=== PATIENT | female | born 2000 | race Caucasian/White ===

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

== ENCOUNTER → 2020-02-12 16:53 | Outpatient (CLI) | payer BC, SELFPAY ==
[2020-02-15 08:16] LABS: Neisseria gonorrhoeae, NAA Negative (Negative)
== END ==
PROVIDERS: Visit Provider Nurse Practitioner Obstetrics & Gynecology
DX: Z72.51 High risk heterosexual behavior (principal)
CPT/HCPCS: 87491; 87591

== ENCOUNTER → 2020-02-17 15:11 | Outpatient (CLI) | payer BC, SELFPAY ==
--- NOTE | 2020-02-17 15:11 | US_ITS ---
PROCEDURE: US TRANSVAGINAL CLINICAL INDICATION: pelvic pain COMPARISON: US TRANVAG US transvaginal from 05/01/2018 FINDINGS: UTERUS: 5cm x 4cmx 3cm with a combined endometrial thickness of 1mm LEFT OVARY: [id number] with a volume of 3.8ml. RIGHT OVARY: [id number] with a volume of 7.7ml. There is a small amount of fluid in the cul-de-sac. The uterus has an unremarkable appearance. There are small bilateral ovarian follicles but no dominant mass or cyst IMPRESSION: Small amount of fluid in cul-de-sac otherwise negative pelvic ultrasound Dictated by: Igor Baker MD 02/17/2020 16:19 Igor Baker MD in OV 02/17/2020 16:19
== END ==
PROVIDERS: PCP Family Medicine; Visit Provider Nurse Practitioner Obstetrics & Gynecology
DX: R10.2 Pelvic and perineal pain (principal)
CPT/HCPCS: 76830

== ENCOUNTER 2020-07-07 08:59 | Emergency (ER) | payer BC, SELFPAY ==
[2020-07-07 09:05] VITALS: BP 118/63; PULSE 69; RESP 19; TEMP 36.9; O2SAT 99; BMI 20.5
--- NOTE | 2020-07-07 09:30 | HMH.EDUTC ---
[facility] [place] Dis[place] Clinical Impression: Strep throat Disposition: Home, Self-Care Condition on Discharge: Good Instructions: Strep Throat (Alternative Therapy), Strep Throat, DI for Strep Throat Additional Instructions: *Monitor Temp, Over the counter Motrin or Tylenol as directed/as needed Tylenol every 4 hours and Motrin every 6 hours (as long as your family doctor has told you that you can take it) for fever or pain. and straight to ER if unable to lower temp less than 101.0 after medication given *Warm salt water gargles may help to soothe the throat *Throat Lozenges *Warm fluids like tea with honey may help to soothe the throat *Sleep elevated *Humidifier/Vaporizer *If you did not take Penicillin shot or was unable to, start taking antibiotic immediately and make sure that you take it for the FULL length of time although you should start to feel better in 24-48 hours *change toothbrush and toothpaste 24-48 hours after starting to take antibiotics so you do not reinfect yourself Monitor Temp. Tylenol and/or Ibuprofen as needed. ER if fever is no less than 101 despite alternating Tylenol and Ibuprofen * Encourage fluids, water, Gatorade, powerade, pedialyte if infant/toddler/or child *Cold fluids, popsicles and ice cream may feel good on his throat Follow up IMMEDIATELY for new or worsening symptoms or no Noticeable improvement over the next 48-72 hours. 911 for difficulty breathing or swallowing Referrals: Justin Ireland MD [Primary Care Provider] - As needed Time of Disposition: 09:37 Medical Decision Making - Oswaldo Inquiry Pt receiving controlled substance: No Oswaldo was queried for this patient: No Vital Signs: 07/07/20 09:05 07/07/20 09:52 Temperature 98.4 F 98.4 F Temperature Source Oral Pulse Rate 69 Pulse Rate [Right Brachial] 69 Respiratory Rate 19 19 Blood Pressure 118/63 Blood Pressure [Right Arm] 118/63 Blood Pressure Mean [Right Arm] 81 Blood Pressure Source [Right Arm] Automatic Cuff Blood Pressure Position [Right Arm] Sitting 02 Sat by Pulse Oximetry 99 Oxygen Delivery Method Room Air - Lab Data Lab results reviewed: Yes: I reviewed the patient's lab results. Orders (Tests/Meds): ED MEDICATIONS Discontinued Medications Generic Name Dose Route Start Last Admin Trade Name Freq PRN Reason Stop Dose Admin Penicillin G Benzathine 1,200,000 unit 07/07/20 09:35 07/07/20 09:51 Penicillin G Benzathine 1,200,000 Units/2ml Syringe IM 07/07/20 09:36 1,200,000 unit ONCE ONE Administration Protocol [facility] [place] HPI - General Stated complaint: sore throat, Time Seen by Provider: 07/07/20 09:30 Mode of Arrival: Ambulatory Source of Information: Patient Limitations: No Limitations Description of Symptoms (Recalled from Triage Doc. by RN): PATIENT C/O SORE THROAT THAT STARTED YESTERDAY HEENT Symptoms (Recalled from RN notes): Yes Resp Symptoms (Recalled from RN notes): No Skin Symptoms (Recalled from RN notes): No MS Symptoms (Recalled from RN notes): No Functional Status (Recalled from RN notes): WNL - History of Present Illness Provider Complaint: Patient states that she started having sore throat yesterday and it it has continued to get worse States that this morning it would hurt when she would swallow - Related Data Home Medications Medication Instructions Recorded Confirmed norethindrone-e.estradioL-iron See Rx Instructions .ROUTE .COMPLEX 07/07/20 07/07/20 [ Tablet] Allergies Allergy/AdvReac Type Severity Reaction Status Date / Time No Known Allergies Allergy Verified 02/12/20 14:43 - Worker's Comp Is this a Worker's Comp case?: No [facility] History - Hepatitis A Screen Drug use history?: No High risk sexual behaviors?: No History of sexually transmitted infection?: No Currently employed?: No Childcare worker?: No Do you have indoor plumbing?: Yes Do you have electricity?: Yes Attestation statement:: This patient has
[2020-07-07 09:52] VITALS: BP 118/63; PULSE 69; RESP 19; TEMP 36.9; O2SAT 99
[2020-07-07 13:25] LABS: UTC Strep Screen (Rapid) Positive (Negative)
== END 2020-07-07 09:55 | disposition home or self-care (01) ==
PROVIDERS: Emergency Provider Nurse Practitioner; PCP Family Medicine
DX: J02.0 Streptococcal pharyngitis (principal)
CPT/HCPCS: 87880; 96372; 99202; G0463; J0561

== ENCOUNTER 2020-07-22 19:07 | Emergency (ER) | payer BC, SELFPAY ==
[2020-07-22 19:47] VITALS: PULSE 84; RESP 16; TEMP 36.8; O2SAT 100; BMI 20.9
[2020-07-22 20:00] LABS: UTC Strep Screen (Rapid) Negative (Negative)
--- NOTE | 2020-07-22 20:23 | HMH.EDUTC ---
[facility] [place] Clinical Impression: Pharyngitis Qualifiers: Pharyngitis/tonsillitis etiology: unspecified etiology Qualified Code(s): J02.9 - Acute pharyngitis, unspecified Disposition: Home, Self-Care Condition on Discharge: Good Instructions: Sore Throat, DI for Pharyngitis/Tonsillopharyngitis -- Adult Additional Instructions: Drink plenty of fluids. Take tylenol or ibuprofen for pain or fever. Take the medications as directed. Follow up with your regular doctor. GO TO THE ER FOR ANY WORSENING SYMPTOMS Throw your tooth brush away and get a new one. Prescriptions: Cefdinir [Cefdinir 250mg/5ml Oral Susp] 300 mg PO BID 10 Days #120 ml Transmission Status: Received by [id number] Referrals: Justin Ireland MD [Primary Care Provider] - Forms: Work/School Release Time of Disposition: 20:37 Medical Decision Making - Medical Records Medical records reviewed: No: I reviewed the patient's medical records. - Oswaldo Inquiry Pt receiving controlled substance: No Vital Signs: 07/22/20 19:47 07/22/20 20:35 Temperature 98.3 F 98.2 F Temperature Source Oral Oral Pulse Rate 80 Pulse Rate [Right] 84 Respiratory Rate 16 16 Blood Pressure 127/84 Blood Pressure Source Automatic Cuff Blood Pressure Position Sitting 02 Sat by Pulse Oximetry 100 Oxygen Delivery Method Room Air Room Air - Lab Data Lab results reviewed: Yes: I reviewed the patient's lab results. Lab Results 07/22/20 19:47: Strep Scn Rapid Clinic Negative Orders (Tests/Meds): ORDERS Category Date Time Status Strep Screen Confirmation Stat Micro 07/22/20 19:47 Received [facility] [place] - General Stated complaint: SORE THROAT AND EARS Time Seen by Provider: 07/22/20 20:23 Mode of Arrival: Ambulatory Source of Information: Patient Limitations: No Limitations Description of Symptoms (Recalled from Triage Doc. by RN): pt c/o sore throat, ear pain HEENT Symptoms (Recalled from RN notes): No Resp Symptoms (Recalled from RN notes): No Skin Symptoms (Recalled from RN notes): No MS Symptoms (Recalled from RN notes): No Functional Status (Recalled from RN notes): na - History of Present Illness Provider Complaint: She states that she has had a sore throat and she has felt bad since yesterday. She had strep 2 weeks ago. She states that she feels like her strep is back. She took a bicillin shot 2 weeks ago when she had strep. - Related Data Home Medications Medication Instructions Recorded Confirmed norethindrone-e.estradioL-iron See Rx Instructions .ROUTE .COMPLEX 07/07/20 07/07/20 [Junel Fe 24 Tablet] Previous Rx's Medication Instructions Recorded Cefdinir [Cefdinir 250mg/5ml Oral 300 mg PO BID 10 Days #120 ml 07/22/20 Susp] Allergies Allergy/AdvReac Type Severity Reaction Status Date / Time No Known Allergies Allergy Verified 02/12/20 14:43 - Worker's Comp Is this a Worker's Comp case?: No [facility] History - Hepatitis A Screen Drug use history?: No High risk sexual behaviors?: No History of sexually transmitted infection?: No Currently employed?: No Childcare worker?: No Do you have indoor plumbing?: Yes Do you have electricity?: Yes Attestation statement:: This patient has been screened for Hepatitis A risk factors. I have reviewed the patient's past medical history: Yes Medical History: Denies:: Cancer, Diabetes Mellitus Type 1, Diabetes Mellitus Type 2, Internal Pacemaker, MRSA, Seizures Other Medical History: Denies: Blood Transfusion Reaction Laterality Cases: Bilateral: Myringotomy (Ear Tubes) Other Surgeries: Yes: Cholecystectomy, Other. No: Pacemaker Amputation: No Fractures: No - Social History Smoking Status: Never smoker Alcohol Intake: never Substance Use Type: denies use Occupational Status: other Housing: house Family Hx:: Cancer, Coronary Artery Disease, Diabetes, Heart Attack, Stroke ROS Obtained: Yes All systems reviewed & no additional compl
[2020-07-22 20:35] VITALS: BP 127/84; PULSE 80; RESP 16; TEMP 36.8; O2SAT 98
== END 2020-07-22 20:38 | disposition home or self-care (01) ==
PROVIDERS: Emergency Provider Nurse Practitioner Family; PCP Family Medicine
DX: J02.9 Acute pharyngitis, unspecified (principal)
CPT/HCPCS: 87880; 99202; G0463

== ENCOUNTER 2020-09-23 16:39 | Emergency (ER) | payer BC, SELFPAY ==
[2020-09-23 17:00] VITALS: BP 121/65; PULSE 77; RESP 14; TEMP 37.2; O2SAT 99; BMI 20.3
[2020-09-23 17:12] LABS: Apearance,Urine Clear (Clear); Color,Urine Yellow (Yellow); Glucose,Urine (UA) Negative (Negative); Ketones,Urine Negative (Negative); Protein,Urine Negative (Negative)
[2020-09-23 17:13] LABS: Bilirubin,Urine Negative (Negative); Blood, Urine Trace (Negative); UTC Leukocyte Esterase,Urine Trace (Negative); UTC Nitrate,Urine Negative (Negative); Urobilinogen,Urine 0.2 EU/dl (0.2)
--- NOTE | 2020-09-23 17:41 | HMH.EDUTC ---
[facility] [place] Disposition Clinical Impression: UTI (urinary tract infection) Qualifiers: Urinary tract infection type: site unspecified Hematuria presence: with hematuria Qualified Code(s): N39.0 - Urinary tract infection, site not specified; R31.9 - Hematuria, unspecified Disposition: Home, Self-Care Condition on Discharge: Good Instructions: Cephalexin, Urinary Tract Infection, DI for Urinary Tract Infection (UTI) Additional Instructions: *Increase fluids. Water not Soda or Tea *Start antibiotic immediately and be sure to take as ordered for the FULL length of time although you should start to see improvement over the next 48 hours *Be SURE to follow up anytime for new or worsening symptoms with your family doctor. AND in 48 hours for urine culture results with your family doctor, if you do not have a doctor then you may call back to the [facility] for urine culture results and further treatment. We do recommend that you choose and establish care with a Primary Care Physician. AND follow up with them in 10-14 days to repeat UA to ensure infection is resolved and blood no longer present *Be sure to let your PCP know that we sent urine cultures from the [facility] so they can follow up to ensure that you area the on the correct antibiotic Call your doctor office and make appointment for 48 hours (2 days from today) to follow up and get the results of your urine culture and further treatment Return if needed Straight to ER if any life threatening symptoms Prescriptions: cephALEXin [cephALEXin 250mg/5mL 100mL susp] 500 mg PO BID 5 Days #100 bottle Transmission Status: Pending to [id number] Referrals: Justin Ireland MD [Primary Care Provider] - As needed Time of Disposition: 17:52 Medical Decision Making - Oswaldo Inquiry Pt receiving controlled substance: No Oswaldo was queried for this patient: No Vital Signs: 09/23/20 17:00 Temperature 98.9 F Temperature Source Oral Pulse Rate [Right] 77 Respiratory Rate 14 Blood Pressure [Right Arm] 121/65 Blood Pressure Mean [Right Arm] 83 Blood Pressure Source [Right Arm] Automatic Cuff Blood Pressure Position [Right Arm] Sitting 02 Sat by Pulse Oximetry 99 - Lab Data Lab results reviewed: Yes: I reviewed the patient's lab results. Lab Results 09/23/20 17:06: Urine Color Yellow, Urine Appearance Clear, Urine pH 7.0, Ur Specific [place] 1.020, Urine Protein Negative, Urine Glucose (UA) Negative, Urine Ketones Negative, Urine Blood Trace, Urine Nitrate Negative, Urine Bilirubin Negative, Urine Urobilinogen 0.2, Ur Leukocyte Esterase Trace [facility] [place] HPI - General Stated complaint: BACK PAIN, POSSIBLE KIDNEY INFECTION Time Seen by Provider: 09/23/20 17:41 Mode of Arrival: Ambulatory Source of Information: Patient Limitations: No Limitations Description of Symptoms (Recalled from Triage Doc. by RN): pt c/o lower bilateral back pain. she states there has not been an injury. pt thinks it may be a kidney infection. pain is 9/10 and throbbing. pt states she is not having any urinary symptoms. HEENT Symptoms (Recalled from RN notes): No Resp Symptoms (Recalled from RN notes): No Skin Symptoms (Recalled from RN notes): No MS Symptoms (Recalled from RN notes): Yes (lower back pain) Functional Status (Recalled from RN notes): na - History of Present Illness Provider Complaint: Patient states that she has been having low back pain Denies known injury States that she has also noticed that she is urinating more than usual and feeling like when she has to urinate she has to go immediately State that she thinks she may have a UTI States that she isnt having any burning yet just the low aches - Related Data Home Medications Medication Instructions Recorded Confirmed norethindrone-e.estradioL-iron See Rx Instructions .ROUTE .COMPLEX 07/07/20 07/07/20 [June Fe 24 Tablet] Previous Rx's Medication Instructions Recorded Cefdinir [Cefdinir 250mg/5ml Oral 300 mg PO BID 10 Days #120 ml 03
[2020-09-23 18:19] VITALS: BP 119/69; PULSE 79; RESP 16; TEMP 36.6
== END 2020-09-23 18:21 | disposition home or self-care (01) ==
PROVIDERS: Emergency Provider Nurse Practitioner; PCP Family Medicine
DX: N30.01 Acute cystitis with hematuria (principal)
CPT/HCPCS: 81003; 99202; G0463

== ENCOUNTER → 2020-11-25 11:10 | Outpatient (CLI) | payer BC, SELFPAY ==
[2020-11-26 13:17] LABS: Hepatitis B Surf Ab Quant 3.3 mIU/mL (Immunity>9.9)
== END ==
PROVIDERS: Visit Provider Family Medicine
DX: Z11.59 Encounter for screening for other viral diseases (principal)
CPT/HCPCS: 36415; 86706

== ENCOUNTER 2020-12-27 20:06 | Emergency (ER) | payer BC, SELFPAY ==
[2020-12-27 20:10] VITALS: BP 118/80; PULSE 74; RESP 18; TEMP 36.7; O2SAT 100; BMI 20.2
--- NOTE | 2020-12-27 20:46 | HMH.EDUTC ---
[facility] [place] Impression: COVID-19 virus test result unknown Disposition: Home, Self-Care Condition on Discharge: Good Instructions: DI for COVID-19 (Suspected or Confirmed ), How to Care for Someone with COVID-19 Additional Instructions: covid swab was sent to lab, call later today for results. self isolate until test results are known to be negative No sign of a bacterial infection. Likely viral. Viruses can take 7-14 days to run their course. Nasal saline and bulb syringe or nose Inga to remove nasal drainage to help with nasal congestion. Hard to eat, drink, sleep with nasal congestion so important to keep this cleaned out. Monitor temp. Tylenol or Motrin as needed for pain or fever Encourage fluids, water, Gatorade, Powerade, Pedialyte if /toddler/child Warm salt water gargles Warm fluids Sore throat lozenges Sleep elevated Humidifier/vaporizer Follow-up immediately for new or worsening symptoms or no noticeable improvement over the next 48-72 hours. Referrals: Justin Ireland MD [Primary Care Provider] - Forms: Work/School Release Time of Disposition: 20:49 Medical Decision Making - Oswaldo Inquiry Pt receiving controlled substance: No Orders (Tests/Meds): ORDERS Category Date Time Status Covid-19 Nasal PCR ([facility]) Routine Lab 12/27/20 20:25 [place] [facility] [place] - General Chief complaint: [facility] Stated complaint: covid test Time Seen by Provider: 12/27/20 20:46 Mode of Arrival: Ambulatory Source of Information: Patient Limitations: No Limitations - History of Present Illness Provider Complaint: 20 yr old female presents for nasal congestion, sore throat and tiredness for 2 days. 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 - Related Data Home Medications Medication Instructions Recorded Confirmed norethindrone-e.estradioL-iron See Rx Instructions .ROUTE .COMPLEX 07/07/20 07/07/20 [Junel Fe 24 Tablet] Previous Rx's Medication Instructions Recorded Cefdinir [Cefdinir 250mg/5ml Oral 300 mg PO BID 10 Days #120 ml 07/22/20 Susp] cephALEXin [cephALEXin 250mg/5mL 500 mg PO BID 5 Days #100 bottle 09/23/20 100mL susp] Allergies Allergy/AdvReac Type Severity Reaction Status Date / Time No Known Allergies Allergy Verified 09/23/20 17:06 [facility] History - Hepatitis A Screen Attestation statement:: This patient has been screened for Hepatitis A risk factors. I have reviewed the patient's past medical history: Yes Medical History: Denies:: Cancer, Diabetes Mellitus Type 1, Diabetes Mellitus Type 2, Internal Pacemaker, MRSA, Seizures Other Medical History: Denies: Blood Transfusion Reaction Laterality Cases: Bilateral: Myringotomy (Ear Tubes) Other Surgeries: Yes: Cholecystectomy, Other. No: Pacemaker Amputation: No Fractures: No - Social History Smoking Status: Never smoker Alcohol Intake: never Substance Use Type: denies use Occupational Status: other Housing: house Family Hx:: Cancer, Coronary Artery Disease, Diabetes, Heart Attack, Stroke ROS Obtained: Yes Systems reviewed as appropriate & no additional complaints - Constitutional Constitutional: Reports system reviewed and no additional complaints, except as docu, Reports fatigue, Denies fever(s) - Eyes Eyes: Reports system reviewed and no additional complaints, except as docu, Denies blind spots - ENT Ears, Nose, Mouth, and Throat: Reports system reviewed and no additional complaints, except as docu, Reports nasal congestion, Reports nasal discharge, Reports sore throat - Cardiovascular Cardiovascular: Reports system reviewed and no additional complaints, except as docu, Denies chest pain - Respiratory Respiratory: Reports system reviewed and no additional complaints, except as docu, Reports cough - Gastrointestinal Gastrointestingal: Reports: system reviewed and no additional complaints, except as docu. Denies: abdominal pain - Genitourinary Female Genitourinary: Repo
[2020-12-27 20:56] VITALS: BP 118/80; PULSE 74; RESP 18; TEMP 36.7; O2SAT 100
== END 2020-12-27 21:01 | disposition home or self-care (01) ==
PROVIDERS: Emergency Provider Nurse Practitioner Family; PCP Family Medicine
DX: Z20.822 Contact with and (suspected) exposure to COVID-19 (principal)
CPT/HCPCS: 99202; G0463; U0003

== ENCOUNTER → 2021-01-27 12:42 | Outpatient (CLI) | payer BC, SELFPAY ==
[2021-01-28 06:11] LABS: Hepatitis B Surf Ab Quant >1000.0 mIU/mL (Immunity>9.9)
== END ==
PROVIDERS: Visit Provider Family Medicine
DX: Z01.84 Encounter for antibody response examination (principal)
CPT/HCPCS: 36415; 86706

== ENCOUNTER 2021-02-10 13:57 | Emergency (ER) | payer BC, SELFPAY ==
[2021-02-10 14:16] VITALS: BP 107/86; PULSE 77; RESP 16; TEMP 36.5; O2SAT 100; BMI 20.5
[2021-02-10 14:35] LABS: Apearance,Urine Clear (Clear); Bilirubin,Urine Negative (Negative); Blood, Urine Negative (Negative); Color,Urine Yellow (Yellow); Glucose,Urine (UA) Negative (Negative); Ketones,Urine Negative (Negative); Protein,Urine Negative (Negative); UTC Leukocyte Esterase,Urine Negative (Negative); UTC Nitrate,Urine Negative (Negative); Urobilinogen,Urine 0.2 EU/dl (0.2)
--- NOTE | 2021-02-10 14:43 | HMH.EDUTC ---
[facility] [place] Disposition Clinical Impression: Abdominal pain Qualifiers: Abdominal location: unspecified location Qualified Code(s): R10.9 - Unspecified abdominal pain Disposition: Still a Patient Condition on Discharge: Fair Referrals: Justin Ireland MD [Primary Care Provider] - Time of Disposition: 14:50 Medical Decision Making - Oswaldo Inquiry Pt receiving controlled substance: No Oswaldo was queried for this patient: No Vital Signs: 02/10/21 14:16 02/10/21 16:23 Temperature 97.7 F 98 F Temperature Source Oral Oral Pulse Rate [Left] 77 78 Respiratory Rate 16 16 Blood Pressure [Right Arm] 107/86 L 112/62 Blood Pressure Mean [Right Arm] 93 78 Blood Pressure Source [Right Arm] Automatic Cuff Blood Pressure Position [Right Arm] Sitting 02 Sat by Pulse Oximetry 100 98 Oxygen Delivery Method Room Air - Lab Data Lab Results 02/10/21 14:31: Urine Color Yellow, Urine Appearance Clear, Urine pH 7.5, Ur Specific [place] 1.015, Urine Protein Negative, Urine Glucose (UA) Negative, Urine Ketones Negative, Urine Blood Negative, Urine Nitrate Negative, Urine Bilirubin Negative, Urine Urobilinogen 0.2, Ur Leukocyte Esterase Negative, Urine RBC None, Urine WBC None, Ur Squamous Epith Cells 5-10, Urine Bacteria None 02/10/21 14:34: Urine Color Yellow, Urine Appearance Clear, Urine pH 7.0, Ur Specific [place] 1.020, Urine Protein Negative, Urine Glucose (UA) Negative, Urine Ketones Negative, Urine Blood Negative, Urine Nitrate Negative, Urine Bilirubin Negative, Urine Urobilinogen 0.2, Ur Leukocyte Esterase Negative 02/10/21 15:03: WBC 6.4, RBC 4.87, Hgb 15.0, Hct 45.1, MCV 92.6, MCH 30.7, MCHC 33.1, RDW 12.1, Plt Count 287, MPV 9.3, Neut % (Auto) 59.2, Lymph % (Auto) 32.1, [place] % (Auto) 7.0, Eos % (Auto) 0.8, Baso % (Auto) 0.9, Neut # (Auto) 3.8, Lymph # (Auto) 2.1, [place] # (Auto) 0.5, Eos # (Auto) 0.1, Baso # (Auto) 0.1 02/10/21 15:03: Sodium 140, Potassium 3.9, Chloride 104, Carbon Dioxide 25, Anion Gap 14.9, BUN 6 L, Creatinine 0.50 L, Estimated Creat Clear 148, Estimated GFR 156, Est GFR ( Amer) 188, Glucose 85, Calcium 9.2, Total Bilirubin 0.4, AST 32, ALT 17, Alkaline Phosphatase 115, Total Protein 7.2, Albumin 4.4, Globulin 2.8, Albumin/Globulin Ratio 1.6, Amylase 71 02/10/21 15:03: Lipase 52 02/10/21 15:08: Tst Clinic Negative Result diagrams: 02/10/21 15:03 02/10/21 15:03 Orders (Tests/Meds): ED MEDICATIONS Discontinued Medications Generic Name Dose Route Start Last Admin Trade Name Freq PRN Reason Stop Dose Admin Iopamidol 75 ml 02/10/21 16:11 02/10/21 16:15 Iopamidol-370 (76%);100ml Bottle IV 02/10/21 16:12 75 ml ONCE ONE Administration Sodium Chloride 10 ml 02/10/21 16:11 02/10/21 16:15 Sodium Chloride 0.9% 10ml Syr (Rad Only) IV 02/10/21 16:12 10 ml ONCE ONE Administration ORDERS Category Date Time Status CT abdomen pelvis w con Stat Cat Scan 02/10/21 15:40 Taken Medical Decision Narrative: Due to patient having tenderness with palpation in right lower quad recommended transfer to the ED for further treatment and evaluation Called ED spoke with Hallie and no available room at this time will draw labs and have patient wait in the [facility] until available bed in ED [facility] [place] HPI - General Stated complaint: pain on right side since 1006 Time Seen by Provider: 02/10/21 14:43 Mode of Arrival: Ambulatory Source of Information: Patient Limitations: No Limitations Description of Symptoms (Recalled from Triage Doc. by RN): pt c/o RUQ pain. she states it feels like a gallbladder attack or that her ribs are pinching her. HEENT Symptoms (Recalled from RN notes): No Resp Symptoms (Recalled from RN notes): No Skin Symptoms (Recalled from RN notes): No MS Symptoms (Recalled from RN notes): No Functional Status (Recalled from RN notes): na - History of Present Illness Provider Complaint: Patient states that for the last week or so she has been having pain on and off in h
--- NOTE | 2021-02-10 14:56 | PC.NURSE ---
Pt to be transferred to ed once bed is available. Report received from DOUGLAS stanton
[2021-02-10 15:09] LABS: UTC Pregnancy Test, Urine Negative (Negative)
[2021-02-10 15:17] LABS: Basophils # 0.1 K/mm3 (0-0.2); Basophils % 0.9 % (0.1-2.0); Eosinophils # 0.1 K/mm3 (0.0-0.4); Eosinophils % 0.8 % (0.1-12.0); Hematocrit 45.1 % (37.0-47.0); Lymphocytes # 2.1 K/mm3 (0.7-4.5); Lymphocytes % 32.1 % (10-50); Mean Corpuscular HGB Conc 33.1 g/dL (31.8-35.4); Mean Corpuscular Hemoglobin 30.7 pg (27.0-31.2); Mean Corpuscular Volume 92.6 fl (81-99); Mean Platelet Volume 9.3 fl (7.4-10.4); Monocytes # 0.5 K/mm3 (0.1-1.0); Neutrophils # 3.8 K/mm3 (1.8-7.8); Neutrophils % 59.2 % (37.0-80.0); Platelet Count 287 K/mm3 (142-424); Red Blood Count 4.87 M/mm3 (4.20-5.40); Red Cell Distribution Width 12.1 % (11.5-17.5); White Blood Count 6.4 K/mm3 (4.8-10.8)
[2021-02-10 15:21] LABS: Microscopic, Urine URINE MICROSCOPIC (MICROSCOPIC)
[2021-02-10 15:26] LABS: Chloride 104 mmol/L (98-107); Potassium 3.9 mmoL/L (3.5-5.1); Sodium 140 mmol/L (136-145)
[2021-02-10 15:28] LABS: Amylase 71 U/L (30-110); Blood Urea Nitrogen 6 mg/dl (7-17); Creatinine Clearance Estimated 148 mL/min (50-200); Estimated Glomerular Filt Rate 156 ml/min (>60); GFR (African American) 188 ML/MIN (>60); Lipase 52 U/L (23-300)
[2021-02-10 15:29] LABS: Alanine Aminotransferase 17 U/L (12-78); Albumin Level 4.4 g/dl (3.5-5.0); Albumin/Globulin Ratio 1.6 (1.1-1.8); Alkaline Phosphatase 115 U/L (38-126); Anion Gap 14.9 mEq/L (5-15); Aspartate Amino Transferase 32 U/L (14-36); Bilirubin,Total 0.4 mg/dl (0.2-1.3); Calcium 9.2 mg/dl (8.4-10.2); Carbon Dioxide 25 mmol/L (22.0-30.0); Globulin 2.8 g/dL (1.3-3.2); Glucose 85 mg/dl (74-100); Total Protein,Serum 7.2 g/dl (6.3-8.2)
[2021-02-10 15:40] LABS: Appearance,Urine CLEAR (Clear); Bilirubin,Urine Negative (Negative); Blood, Urine Negative (Negative); Color,Urine YELLOW (Yellow); Glucose,Urine (UA) Negative (Negative); Ketones,Urine Negative (Negative); Leukocyte Esterase,Urine Negative (Negative); Nitrate,Urine Negative (Negative); PH,Urine 7.5 (5.0-8.5); Protein,Urine Negative (Negative); Specific Gravity, Urine 1.015 (1.005-1.030); Urobilinogen,Urine 0.2 EU/dl (0.2)
--- NOTE | 2021-02-10 15:40 | CT_ITS ---
PROCEDURE INFORMATION: Exam: CT Abdomen And Pelvis With Contrast Exam date and time: 02/10/2021 3:40 PM Age: 21 years old Clinical indication: Abdominal pain; Localized; Right lower quadrant (rlq); Additional info: Abd pain TECHNIQUE: Imaging protocol: Computed tomography of the abdomen and pelvis with contrast. Radiation optimization: All CT scans at this facility use at least one of these dose optimization techniques: automated exposure control; mA and/or kV adjustment per patient size (includes targeted exams where dose is matched to clinical indication); or iterative reconstruction. Contrast material: ISOVUE; Contrast volume: 75 ml; Contrast route: IV; COMPARISON: ABDPELW CT abdomen pelvis w con 05/04/2018 12:33 AM FINDINGS: Liver: Normal. No mass. Gallbladder and bile ducts: Cholecystectomy. Pancreas: Normal. No ductal dilation. Spleen: Normal. No splenomegaly. Adrenal glands: Normal. No mass. Kidneys and ureters: Normal. No hydronephrosis. Stomach and bowel: Considerable volume of stool seen within the colon. Appendix: No evidence of appendicitis. Intraperitoneal space: Minor physiologic pelvic free fluid. Vasculature: Unremarkable. No abdominal aortic aneurysm. Lymph nodes: Unremarkable. No enlarged lymph nodes. Urinary bladder: Unremarkable as visualized. Reproductive: Unremarkable as visualized. Bones/joints: Unremarkable. No acute fracture. Soft tissues: Unremarkable. IMPRESSION: Constipation.
--- NOTE | 2021-02-10 16:17 | PC.NURSE ---
pt return from CT, now in ER room 11
[2021-02-10 16:23] VITALS: BP 112/62; BP 115/73; PULSE 76; PULSE 78; RESP 16; TEMP 36.6; TEMP 37.1; O2SAT 98; BMI 20.5; BMI 205463.3
--- NOTE | 2021-02-10 17:28 | HMH.EDABDPAI ---
ED Disposition Clinical Impression: Constipation Abdominal pain Qualifiers: Abdominal location: unspecified location Qualified Code(s): R10.9 - Unspecified abdominal pain Disposition: Home, Self-Care Condition on Discharge: Good Additional Instructions: Your evaluated emergency department today for abdominal pain, there is no need for further emergent evaluation at this time. Exact cause of symptoms is most likely constipation with colonic spasm, maintain adequate oral hydration, and use Metamucil for fiber supplementation as well as Bentyl as needed for pain, follow-up with your primary care physician in the next 3 to 4 days for monitoring of any persistent symptoms and coordination of ongoing care needs. Return to the emergency department without hesitation with any new or worsening symptoms. Prescriptions: Dicyclomine HCl [Bentyl 10mg capsule] 10 mg PO TID PRN 5 Days #15 cap PRN Reason: Breakthru Moderate Pain Transmission Status: Pending to [id number] Referrals: Justin Ireland MD [Primary Care Provider] - - Critical Care Critical Care Time: No Attestation: On 02/10/21, the high probability of a clinically significant, sudden or life threatening deterioration of the following system(s) required my full and direct attention, intervention and personal management. The time I documented below is in addition to time spent performing reported procedures but includes the following listed in this critical care notation. Medical Decision Making - Oswaldo Inquiry Pt receiving controlled substance: No Vital Signs: 02/10/21 14:16 02/10/21 16:23 Temperature 97.7 F 98 F Temperature Source Oral Oral Pulse Rate [Left] 77 78 Respiratory Rate 16 16 Blood Pressure [Right Arm] 107/86 L 112/62 Blood Pressure Mean [Right Arm] 93 78 Blood Pressure Source [Right Arm] Automatic Cuff Blood Pressure Position [Right Arm] Sitting 02 Sat by Pulse Oximetry 100 98 Oxygen Delivery Method Room Air - Lab Data Lab Results 02/10/21 14:31: Urine Color Yellow, Urine Appearance Clear, Urine pH 7.5, Ur Specific [place] 1.015, Urine Protein Negative, Urine Glucose (UA) Negative, Urine Ketones Negative, Urine Blood Negative, Urine Nitrate Negative, Urine Bilirubin Negative, Urine Urobilinogen 0.2, Ur Leukocyte Esterase Negative, Urine RBC None, Urine WBC None, Ur Squamous Epith Cells 5-10, Urine Bacteria None 02/10/21 14:34: Urine Color Yellow, Urine Appearance Clear, Urine pH 7.0, Ur Specific [place] 1.020, Urine Protein Negative, Urine Glucose (UA) Negative, Urine Ketones Negative, Urine Blood Negative, Urine Nitrate Negative, Urine Bilirubin Negative, Urine Urobilinogen 0.2, Ur Leukocyte Esterase Negative 02/10/21 15:03: WBC 6.4, RBC 4.87, Hgb 15.0, Hct 45.1, MCV 92.6, MCH 30.7, MCHC 33.1, RDW 12.1, Plt Count 287, MPV 9.3, Neut % (Auto) 59.2, Lymph % (Auto) 32.1, Hand % (Auto) 7.0, Eos % (Auto) 0.8, Baso % (Auto) 0.9, Neut # (Auto) 3.8, Lymph # (Auto) 2.1, Hand # (Auto) 0.5, Eos # (Auto) 0.1, Baso # (Auto) 0.1 02/10/21 15:03: Sodium 140, Potassium 3.9, Chloride 104, Carbon Dioxide 25, Anion Gap 14.9, BUN 6 L, Creatinine 0.50 L, Estimated Creat Clear 148, Estimated GFR 156, Est GFR ( Amer) 188, Glucose 85, Calcium 9.2, Total Bilirubin 0.4, AST 32, ALT 17, Alkaline Phosphatase 115, Total Protein 7.2, Albumin 4.4, Globulin 2.8, Albumin/Globulin Ratio 1.6, Amylase 71 02/10/21 15:03: Lipase 52 02/10/21 15:08: Tst Clinic Negative Result diagrams: 02/10/21 15:03 02/10/21 15:03 Orders (Tests/Meds): ED MEDICATIONS Discontinued Medications Generic Name Dose Route Start Last Admin Trade Name Freq PRN Reason Stop Dose Admin Iopamidol 75 ml 02/10/21 16:11 02/10/21 16:15 Iopamidol-370 (76%);100ml Bottle IV 02/10/21 16:12 75 ml ONCE ONE Administration Sodium Chloride 10 ml 02/10/21 16:11 02/10/21 16:15 Sodium Chloride 0.9% 10ml Syr (Rad Only) IV 02/10/21 16:12 10 ml ONCE ONE Admini
[2021-02-10 18:21] VITALS: BP 112/62; PULSE 78; RESP 18; TEMP 36.6; O2SAT 98
== END 2021-02-10 18:24 | disposition home or self-care (01) ==
LOC: UTC 13:59 → ER 16:09
PROVIDERS: Student in an Organized Health Care Education/Training Program; Emergency Provider Nurse Practitioner; PCP Family Medicine
DX: K59.00 Constipation, unspecified (principal)
CPT/HCPCS: 74177; 80053; 81001; 81003; 81025; 82150; 83690; 85025; 99283; Q9967

== ENCOUNTER 2021-04-20 17:54 | Emergency (ER) | payer BC, SELFPAY ==
[2021-04-20 18:18] VITALS: BP 0/0; PULSE 0; RESP 0; TEMP -17.7; TEMP 0
== END 2021-04-20 18:19 | disposition left against medical advice (07) ==
LOC: UTC 17:56
PROVIDERS: Emergency Provider Nurse Practitioner Family; PCP Family Medicine
DX: Z53.21 Procedure and treatment not carried out due to patient leaving prior to being seen by health care provider (principal)

== ENCOUNTER 2021-04-21 08:58 | Emergency (ER) | payer BC, SELFPAY ==
[2021-04-21 09:05] VITALS: BP 113/75; PULSE 86; RESP 19; TEMP 36.8; O2SAT 99; BMI 20.2
[2021-04-21 09:38] LABS: UTC Influenza A Antigen Negative (Negative)
[2021-04-21 09:39] LABS: UTC Influenza B Antigen Negative (Negative); UTC Strep Screen (Rapid) Negative (Negative)
--- NOTE | 2021-04-21 09:49 | HMH.EDUTC ---
[facility] [place] Disposition Clinical Impression: Viral syndrome Disposition: Home, Self-Care Condition on Discharge: Good Instructions: DI for Viral Syndrome, DI for Fever (Symptom) -- Adult Additional Instructions: *Monitor Temp, Over the counter Motrin or Tylenol as directed/as needed Tylenol every 4 hours and Motrin every 6 hours (as long as your family doctor has told you that you can take it) for fever or pain. and straight to ER if unable to lower temp less than 101.0 after medication given *Warm salt water gargles may help to soothe the throat *Throat Lozenges *Warm fluids like tea with honey may help to soothe the throat *Sleep elevated *Humidifier/Vaporizer Your throat swab was sent for culture. Those results are typically sent to your primary care. Be sure to follow up in 2-3 days with your family doctor/primary care physician if no improvement so they can review those result and treat if necessary. If you don?t have a primary care doctor, I recommend you get one but in the mean time, you will have to return to a walk in clinic Follow up IMMEDIATELY for new or worsening symptoms or no Noticeable improvement over the next 48-72 hours. 911 for difficulty breathing or swallowing You were tested for today for COVID19 your test result should be back in the next 24-48 hours, you may check your results on the [facility] My Health Portal if you have trouble logging on you may call You was given a handout with instructions for Self Quarantine and Self isolation for while you wait on test results and what to do if they are positive If you are positive the Health Dept will be contacting you also Make sure to take your Vitamins Vit. C Vit D and Zinc if you can take them Referrals: Justin Ireland MD [Primary Care Provider] - As needed Forms: Work/School Release Medical Decision Making - Oswaldo Inquiry Pt receiving controlled substance: No Oswaldo was queried for this patient: No Vital Signs: 04/21/21 09:05 Temperature 98.2 F Temperature Source Oral Pulse Rate [Right Brachial] 86 Respiratory Rate 19 Blood Pressure [Right Arm] 113/75 Blood Pressure Mean [Right Arm] 87 Blood Pressure Source [Right Arm] Automatic Cuff Blood Pressure Position [Right Arm] Sitting 02 Sat by Pulse Oximetry 99 Oxygen Delivery Method Room Air - Lab Data Lab results reviewed: Yes: I reviewed the patient's lab results. Lab Results 04/21/21 09:31: Strep Scn [facility] Negative 04/21/21 09:31: Influenza Type A Ag Negative, Influenza Type B Ag Negative Orders (Tests/Meds): ORDERS Category Date Time Status Covid-19 Nasal PCR ([facility]) Routine Lab 04/21/21 09:31 Ordered Strep Screen Confirmation Routine Micro 04/21/21 09:31 Received [facility] [place] HPI - General Stated complaint: sore throat, weakness, body aches ,YANG, congestion Time Seen by Provider: 04/21/21 09:49 Mode of Arrival: Ambulatory Source of Information: Patient Limitations: No Limitations Description of Symptoms (Recalled from Triage Doc. by RN): PATIENT C/O BODY ACHES, SORE THROAT, HEADACHE, AND WEAKNESS X 2 DAYS HEENT Symptoms (Recalled from RN notes): Yes Resp Symptoms (Recalled from RN notes): No Skin Symptoms (Recalled from RN notes): No MS Symptoms (Recalled from RN notes): No Functional Status (Recalled from RN notes): WNL - History of Present Illness Provider Complaint: Patient states that she has not felt well in a couple of days States that she has been feeling achy, tired, sore throat and over all not feeling well States that she was worried that she may have flu strep or COVID so she came in wanting to get tested and checked - Related Data Home Medications Medication Instructions Recorded Confirmed norethindrone-e.estradioL-iron 1 tab PO DAILY 07/07/20 04/21/21 [Junel Fe 24 Tablet] Allergies Allergy/AdvReac Type Severity Reaction Status Date / Time No Known Allergies Allergy Verified 02/04/21 09:31 - Worker's Comp Is this a Worker's Comp ca
[2021-04-21 10:00] VITALS: BP 113/75; PULSE 86; RESP 19; TEMP 36.8; O2SAT 99
== END 2021-04-21 10:03 | disposition home or self-care (01) ==
PROVIDERS: Emergency Provider Nurse Practitioner; PCP Family Medicine
DX: B34.9 Viral infection, unspecified (principal); Z20.822 Contact with and (suspected) exposure to COVID-19
CPT/HCPCS: 87804; 87880; 99203; C9803; G0463; U0003; U0005

== ENCOUNTER 2021-06-10 09:07 | Emergency (ER) | payer BC, SELFPAY ==
[2021-06-10 09:22] VITALS: BP 143/83; PULSE 97; RESP 18; TEMP 37.1; O2SAT 100; BMI 20.3
--- NOTE | 2021-06-10 09:38 | HMH.EDUTC ---
[facility] – [place] Disposition Clinical Impression: Viral syndrome, Exposure to COVID-19 virus Pharyngitis Qualifiers: Pharyngitis/tonsillitis etiology: unspecified etiology Qualified Code(s): J02.9 - Acute pharyngitis, unspecified Disposition: Home, Self-Care Condition on Discharge: Good Instructions: Preventing the Spread of Coronavirus Discharge Instructions, DI for COVID-19 (Suspected or Confirmed ), DI for Pharyngitis/Tonsillopharyngitis -- Adult, DI for Strep Throat Additional Instructions: Drink plenty of fluids. Take tylenol or ibuprofen for pain or fever. Take the medications as directed. Follow up with your regular doctor. GO TO THE ER FOR ANY WORSENING SYMPTOMS Quarantine until you know the results of your covid-19 test. Notify your school or workplace of your results and follow their instructions regarding return to work/school. Prescriptions: Brompheniramine/Pseudoephed/Dm [Bromfed Dm Cough Syrup] 5 ml PO Q6HP PRN #240 ml PRN Reason: Cough [facility]: [facility] Ondansetron [Zofran 4mg ODT] 4 mg PO Q8HP PRN #20 tab PRN Reason: Nausea Transmission Status: Pending to [facility] Azithromycin [Z-Micheal 250mg Tab*] 250 mg PO UD DOSE PK #6 tab Transmission Status: [facility] Referrals: Justin Ireland MD [Primary Care Provider] - Forms: Work/School Release Time of Disposition: 10:06 Medical Decision Making - Medical Records Medical records reviewed: No: I reviewed the patient's medical records. - Oswaldo Inquiry Pt receiving controlled substance: No Vital Signs: 06/10/21 09:22 Temperature 98.8 F Temperature Source Oral Pulse Rate [Left] 97 H Respiratory Rate 18 Blood Pressure [Right Arm] 143/83 H Blood Pressure Mean [Right Arm] 103 02 Sat by Pulse Oximetry 100 - Lab Data Lab results reviewed: Yes: I reviewed the patient's lab results. Orders (Tests/Meds): ORDERS Category Date Time Status Covid-19 Nasal PCR ([facility]) Routine Lab 06/10/21 09:22 Received Rapid Strep Scrn Group A [Strep Scrn Group A (Rapid)] Lab 06/10/21 09:22 Received Stat [facility] [place] HPI - General Stated complaint: sore throat h/a 103 fever last night Time Seen by Provider: 06/10/21 09:30 Mode of Arrival: Ambulatory Source of Information: Patient Limitations: No Limitations Description of Symptoms (Recalled from Triage Doc. by RN): pt c/o a fever, YANG, light headed, scratchy/sore throat, body aches and nausea since yesterday. 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 HEENT Symptoms (Recalled from RN notes): Yes Resp Symptoms (Recalled from RN notes): No Skin Symptoms (Recalled from RN notes): No MS Symptoms (Recalled from RN notes): No Functional Status (Recalled from RN notes): wnl - History of Present Illness Provider Complaint: She states that since yesterday she has had sore throat, sinus congestion, cough, chest congestion, fever and body aches. 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 She has not been vaccinated against covid-19, but she did have covid-19 around 1 year ago. - Related Data Home Medications Medication Instructions Recorded Confirmed norethindrone-e.estradioL-iron 1 tab PO DAILY 07/07/20 04/21/21 [Junel Fe 24 Tablet] Previous Rx's Medication Instructions Recorded Azithromycin [Z-Micheal 250mg Tab*] 250 mg PO UD DOSE PK #6 tab 06/10/21 Brompheniramine/Pseudoephed/Dm 5 ml PO Q6HP PRN #240 ml 06/10/21 [Bromfed Dm Cough Syrup] Ondansetron [Zofran 4mg ODT] 4 mg PO Q8HP PRN #20 tab 06/10/21 Allergies Allergy/AdvReac Type Severity Reaction Status Date / Time No Known Allergies Allergy Verified 02/04/21 09:31 - Worker's Comp Is this a Worker's Comp case?: No [facility] History - Hepatitis A Screen Drug use history?: No High risk sexual behaviors?: No History of sexually transmitted infection?: No Currently employed?: No Childcare worker?: No Do you have indoor plumbing?: Yes D
[2021-06-10 10:06] LABS: Strep Scrn Group A (Rapid) Negative (Negative)
[2021-06-10 10:18] VITALS: BP 143/83; PULSE 97; RESP 18; TEMP 37.1
== END 2021-06-10 10:19 | disposition home or self-care (01) ==
PROVIDERS: Emergency Provider Nurse Practitioner Family; PCP Family Medicine
DX: B34.9 Viral infection, unspecified (principal); U07.1 COVID-19
CPT/HCPCS: 87430; 99203; C9803; G0463; U0003; U0005

== ENCOUNTER → 2022-02-24 17:08 | Outpatient (CLI) | payer BC, SELFPAY ==
[2022-02-24 17:55] LABS: Coronavirus 19, PCR Not Detected (NotDetected); Influenza A, PCR Not Detected (NotDetected); Influenza B, PCR Not Detected (NotDetected); Microscopic, Urine URINE MICROSCOPIC (MICROSCOPIC)
[2022-02-24 18:12] LABS: Basophils # 0.1 K/mm3 (0-0.2); Eosinophils # 0.1 K/mm3 (0.0-0.4); Eosinophils % 1.1 % (0.1-12.0); Hematocrit 43.3 % (37.0-47.0); Hemoglobin 14.2 g/dL (12.2-16.2); Lymphocytes # 3.7 K/mm3 (0.7-4.5); Lymphocytes % 31.3 % (10-50); Mean Corpuscular HGB Conc 32.9 g/dL (31.8-35.4); Mean Corpuscular Hemoglobin 30.6 pg (27.0-31.2); Mean Platelet Volume 9.3 fl (7.4-10.4); Monocytes # 0.9 K/mm3 (0.1-1.0); Monocytes % 7.8 % (1.7-9.3); Neutrophils # 6.9 K/mm3 (1.8-7.8); Neutrophils % 58.7 % (37.0-80.0); Platelet Count 304 K/mm3 (142-424); Red Blood Count 4.66 M/mm3 (4.20-5.40); Red Cell Distribution Width 12.7 % (11.5-17.5); White Blood Count 11.8 K/mm3 (4.8-10.8)
[2022-02-24 19:14] LABS: Appearance,Urine CLEAR (Clear); Bilirubin,Urine Negative (Negative); Blood, Urine Negative (Negative); Color,Urine YELLOW (Yellow); Glucose,Urine (UA) Negative (Negative); Ketones,Urine Negative (Negative); Leukocyte Esterase,Urine Negative (Negative); Nitrate,Urine Negative (Negative); Protein,Urine Negative (Negative); Specific Gravity, Urine 1.015 (1.005-1.030)
[2022-02-24 19:32] LABS: Bacteria,Urine Trace /lpf; WBC,Urine Occasional #/hpf (0-3)
== END ==
PROVIDERS: PCP Family Medicine; Visit Provider Physician Assistant
DX: Z20.822 Contact with and (suspected) exposure to COVID-19 (principal); D72.829 Elevated white blood cell count, unspecified
CPT/HCPCS: 36415; 81001; 85025; C9803; U0003; U0005

== ENCOUNTER 2022-03-04 12:57 | Emergency (ER) | payer BC, SELFPAY ==
[2022-03-04 14:15] VITALS: BP 114/75; PULSE 77; RESP 18; TEMP 36.9; O2SAT 98; BMI 21.4
--- NOTE | 2022-03-04 14:43 | EXP.UTC ---
Discharge Plan Disposition Patient Disposition: Home, Self-Care Condition: Good Prescriptions Prescriptions: New azithromycin 200 mg/5 mL suspension for reconstitution See Rx Instructions .ROUTE .COMPLEX 5 Days Qty: 37.5 0RF Rx Instructions: take 12.5 mL (500 mg) by mouth today (day 1), then 6.25 mL (250 mg) daily for 4 days (days 2-5) prednisolone 15 mg/5 mL solution 15 mg PO DAILY 3 Days Qty: 15 0RF No Action L norgest/e.estradiol-e.estrad [Seasonique] 0.15 mg-30 mcg (84)/10 mcg (7) tablets,dose pack,3 month 1 tab PO DAILY Qty: 91 3RF Referrals Follow up/Referrals: Justin Ireland MD [Primary Care Provider] - See instructions Activity Restrictions/Add. Instructions Additional Instructions/Restrictions: *Monitor Temp, Over the counter Motrin or Tylenol as directed/as needed Tylenol every 4 hours and Motrin every 6 hours (as long as your family doctor has told you that you can take it) for fever or pain. and straight to ER if unable to lower temp less than 101.0 after medication given *Warm salt water gargles may help to soothe the throat *Throat Lozenges? *Warm fluids like tea with honey may help to soothe the throat? *Sleep elevated *Humidifier/Vaporizer Take medication as prescribed for duration prescribed Follow up IMMEDIATELY for new or worsening symptoms or no Noticeable improvement over the next 48-72 hours. 911 for difficulty breathing or swallowing Clinical Impressions Clinical Impression: Sinusitis, Bronchitis Instructions Patient Instructions: DI for Sinusitis, Sinusitis Discharge ED Provider: Ladonna Spangler [facility] [place] General Stated complaint: cough, YANG, congestion Mode of Arrival: Ambulatory Source of Information: Patient Limitations: No Limitations Time Seen by Provider: 03/04/22 14:43 Description of Symptoms (Recalled from Triage Doc. by RN): PATIENT C/O HEAD CONGESTION, HEADACHES, COUGH AND CHEST CONGESTION X 3 DAYS HEENT Symptoms (Recalled from RN notes): Yes Resp Symptoms (Recalled from RN notes): Yes Skin Symptoms (Recalled from RN notes): No MS Symptoms (Recalled from RN notes): No Functional Status (Recalled from RN notes): WNL History of Present Illness Provider Complaint: Patient states that she thinks she may have bronchitis States that she has been having sinus congestion and pressure Drainage in the back of her throat and cough for well over a week but got worse over the last 3 days States that she feels like she has bronchitits Related Data Previous Rx's Medication Instructions Recorded L norgest/E estradiol-E estrad 1 tab PO DAILY #91 tabs 01/31/22 0.15 mg-30 mcg (84)/10 mcg(7) tabs,3mos (Seasonique) azithromycin 200 mg/5 mL oral See Rx Instructions PO .COMPLEX 5 03/04/22 suspension days #37.5 mL prednisolone 15 mg/5 mL oral 15 mg (5 mL) PO DAILY 3 days #15 mL 03/04/22 solution Allergies Allergy/AdvReac Type Severity Reaction Status Date / Time No Known Allergies Allergy Verified 01/31/22 11:14 Worker's Comp Is this a Worker's Comp case?: No PFSH PFSH 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 History of placement of ear tubes Hx of cholecystectomy Hx of wisdom tooth extraction Social History (Updated 03/04/22 @ 14:38 by Brenda Lizarraga RN) Smoking Status: Never smoker second hand exposure: Yes alcohol intake: never substance use type: denies use current occupational status: other Travel in the last 8 weeks: None housing: house caffeine: No ROS Obtained: Yes All systems reviewed & no additional complaints except as documented and Yes Systems reviewed as appropriate & no additional complaints except as documented Constitutional Constitutional: Reports system reviewed and no additional complaints, except as documented, Reports as per HPI and Reports headache(s) ENT Ears, Nose, Mouth, and Throat: Reports system reviewed and no additional complaints, exce
[2022-03-04 15:00] VITALS: BP 114/75; PULSE 77; RESP 18; TEMP 36.9; O2SAT 98
== END 2022-03-04 15:04 | disposition home or self-care (01) ==
PROVIDERS: Emergency Provider Nurse Practitioner; PCP Family Medicine
DX: J40 Bronchitis, not specified as acute or chronic (principal); J32.9 Chronic sinusitis, unspecified
CPT/HCPCS: 99212; G0463

== ENCOUNTER 2022-03-20 08:42 | Emergency (ER) | payer BC, SELFPAY ==
[2022-03-20 10:10] VITALS: BP 130/76; PULSE 102; RESP 18; TEMP 36.8; O2SAT 99; BMI 21.9
--- NOTE | 2022-03-20 10:23 | EXP.UTC ---
Discharge Plan Disposition Patient Disposition: Home, Self-Care Condition: Good Prescriptions Prescriptions: New hmrmcbwscyyfwtn-lbtmtfhcr-FA [Bromfed DM] 2-30-10 mg/5 mL Syrup 10 ml PO Q4H PRN (Reason: Cough) Qty: 240 0RF No Action L norgest/e.estradiol-e.estrad [Seasonique] 0.15 mg-30 mcg (84)/10 mcg (7) tablets,dose pack,3 month 1 tab PO DAILY Qty: 91 3RF azithromycin 200 mg/5 mL suspension for reconstitution See Rx Instructions .ROUTE .COMPLEX 5 Days Qty: 37.5 0RF Rx Instructions: take 12.5 mL (500 mg) by mouth today (day 1), then 6.25 mL (250 mg) daily for 4 days (days 2-5) prednisolone 15 mg/5 mL solution 15 mg PO DAILY 3 Days Qty: 15 0RF Referrals Follow up/Referrals: Justin Ireland MD [Primary Care Provider] - See instructions Activity Restrictions/Add. Instructions Additional Instructions/Restrictions: *Monitor Temp, Over the counter Motrin or Tylenol as directed/as needed Tylenol every 4 hours and Motrin every 6 hours (as long as your family doctor has told you that you can take it) for fever or pain. and straight to ER if unable to lower temp less than 101.0 after medication given *Warm salt water gargles may help to soothe the throat *Throat Lozenges? *Warm fluids like tea with honey may help to soothe the throat? *Sleep elevated *Humidifier/Vaporizer *Bromfed may cause drowsiness. Know how it effects you (your child) before driving, caring for small child, or sending your child to school. Not other antihistamines/allergy medications while taking bromfed Follow up IMMEDIATELY for new or worsening symptoms or no Noticeable improvement over the next 48-72 hours. 911 for difficulty breathing or swallowing You were tested for today for COVID19 your test result should be back in the next 24-48 hours, you may check your results on the [facility] [facility] Clinical Impressions Clinical Impression: Viral upper respiratory tract infection with cough Stand Alone Forms Stand Alone Forms: Work/School Release Instructions Patient Instructions: Cough, DI for Viral Upper Respiratory Infection -- Adult Discharge ED Provider: Ladonna Spangler [facility] [place] HPI General Stated complaint: congestion, fever, cough Time Seen by Provider: 03/20/22 10:23 History of Present Illness Provider Complaint: Patient states that she has been around her mother that has been sick State that last night it hit her hard and fast States that she started with body aches, chills, fever, and cough States that today she was still having fever and cough so she came in to get checked out Related Data Previous Rx's Medication Instructions Recorded L norgest/E estradiol-E estrad 1 tab PO DAILY #91 tabs 01/31/22 0.15 mg-30 mcg (84)/10 mcg(7) tabs,3mos (Seasonique) azithromycin 200 mg/5 mL oral See Rx Instructions PO .COMPLEX 5 03/04/22 suspension days #37.5 mL prednisolone 15 mg/5 mL oral 15 mg (5 mL) PO DAILY 3 days #15 mL 03/04/22 solution jysfquesamlefxf-kefpfisqpolyluv-GC 10 ml PO Q4H PRN Cough #240 mL 03/20/22 2 mg-30 mg-10 mg/5 mL oral syrup (Bromfed DM) Allergies Allergy/AdvReac Type Severity Reaction Status Date / Time No Known Allergies Allergy Verified 01/31/22 11:14 [facility] 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 History of placement of ear tubes Hx of cholecystectomy Hx of wisdom tooth extraction Social History (Updated 03/04/22 @ 14:38 by Brenda Lizarraga RN) Smoking Status: Never smoker second hand exposure: Yes alcohol intake: never substance use type: denies use current occupational status: other Travel in the last 8 weeks: None housing: house caffeine: No ROS Obtained: Yes All systems reviewed & no additional complaints except as documented and Yes Systems reviewed as appropriate & no additional complaints except as documented Constitutional Constitutional: Reports system reviewed and no add
[2022-03-20 10:25] LABS: UTC Influenza A Antigen Negative (Negative); UTC Influenza B Antigen Negative (Negative)
[2022-03-20 10:31] VITALS: BP 130/76; PULSE 102; RESP 18; TEMP 36.8; O2SAT 99
[2022-03-20 10:40] LABS: Adenovirus,PCR Not Detected (NotDetected); Bordetella Pertussis Not Detected (NotDetected); Chlamydophila Pneumoniae, PCR Not Detected (NotDetected); Coronavirus 19, PCR Not Detected (NotDetected); Coronavirus 229E Not Detected (NotDetected); Coronavirus NL63 Not Detected (NotDetected); Coronavirus OC43 Not Detected (NotDetected); Coronovirus HKU1,PCR Not Detected (NotDetected); Human Metapneumovirus Not Detected (NotDetected); Influenza A, PCR Not Detected (NotDetected); Influenza AH1, PCR Not Detected (NotDetected); Influenza AH3,PCR Not Detected (NotDetected); Influenza B, PCR Not Detected (NotDetected); Mycoplasma Pneumoniae, PCR Not Detected (NotDetected); Parainfluenza 1, PCR Not Detected (NotDetected); Parainfluenza 2, PCR Not Detected (NotDetected); Parainfluenza 3, PCR Not Detected (NotDetected); Parainfluenza 4, PCR Not Detected (NotDetected); Respiratory Syncytial Virus Not Detected (NotDetected); Rhinovirus/Enterovirus Not Detected (NotDetected)
[2022-03-20 13:08] LABS: Influenza AH1, 2009 Detected (NotDetected)
== END 2022-03-20 10:36 | disposition home or self-care (01) ==
PROVIDERS: Emergency Provider Nurse Practitioner; PCP Family Medicine
DX: J10.1 Influenza due to other identified influenza virus with other respiratory manifestations (principal); R05.9 Cough, unspecified; R09.81 Nasal congestion; M79.10 Myalgia, unspecified site; R53.82 Chronic fatigue, unspecified; R51.9 Headache, unspecified; Z79.52 Long term (current) use of systemic steroids; Z79.3 Long term (current) use of hormonal contraceptives; Z79.899 Other long term (current) drug therapy
CPT/HCPCS: 87581; 87632; 87798; 87804; 99213; C9803; G0463; U0003; U0005

== ENCOUNTER 2022-04-20 16:58 | Emergency (ER) | payer BC, SELFPAY ==
[2022-04-20 18:00] VITALS: BP 114/67; PULSE 146; RESP 18; TEMP 38.9; O2SAT 99; BMI 24.3
--- NOTE | 2022-04-20 18:14 | EXP.UTC ---
Discharge Plan Disposition Patient Disposition: Home, Self-Care Condition: Good Prescriptions Prescriptions: New azithromycin [Zithromax Z-Micheal] 250 mg tablet See Rx Instructions .ROUTE .COMPLEX 5 Days Qty: 6 0RF Rx Instructions: For 250 mg dose pack: take 500 mg today (day 1), then 250 mg for 4 days (days 2-5) ondansetron 4 mg tablet,disintegrating 4 mg PO Q8H PRN (Reason: nausea and vomiting) Qty: 10 0RF No Action L norgest/e.estradiol-e.estrad [Seasonique] 0.15 mg-30 mcg (84)/10 mcg (7) tablets,dose pack,3 month 1 tab PO DAILY Qty: 91 3RF vmtidoatakvesuq-jgkvlnryb-RT [Bromfed DM] 2-30-10 mg/5 mL Syrup 10 ml PO Q4H PRN (Reason: Cough) Qty: 240 0RF oseltamivir [Tamiflu] 75 mg capsule 75 mg PO BID 5 Days Qty: 10 0RF azithromycin 200 mg/5 mL suspension for reconstitution See Rx Instructions .ROUTE .COMPLEX 5 Days Qty: 37.5 0RF Rx Instructions: take 12.5 mL (500 mg) by mouth today (day 1), then 6.25 mL (250 mg) daily for 4 days (days 2-5) prednisolone 15 mg/5 mL solution 15 mg PO DAILY 3 Days Qty: 15 0RF Referrals Follow up/Referrals: Justin Ireland MD [Primary Care Provider] - See instructions Activity Restrictions/Add. Instructions Additional Instructions/Restrictions: *Monitor Temp, Over the counter Motrin or Tylenol as directed/as needed Tylenol every 4 hours and Motrin every 6 hours (as long as your family doctor has told you that you can take it) for fever or pain. and straight to ER if unable to lower temp less than 101.0 after medication given *Warm salt water gargles may help to soothe the throat *Throat Lozenges? *Warm fluids like tea with honey may help to soothe the throat? *Sleep elevated *Humidifier/Vaporizer Your throat swab was sent for culture. Those results are typically sent to your primary care. Be sure to follow up in 2-3 days with your family doctor/primary care physician if no improvement so they can review those result and treat if necessary. If you don?t have a primary care doctor, I recommend you get one but in the mean time, you will have to return to a walk in clinic Follow up IMMEDIATELY for new or worsening symptoms or no Noticeable improvement over the next 48-72 hours. 911 for difficulty breathing or swallowing You were tested for today for Upper Respiratory infection with COVID19 your test result should be back in the next 24-48 hours, you may check your Results on the [facility] [employer] [facility] Clinical Impressions Clinical Impression: URI (upper respiratory infection) Qualifiers: URI type: unspecified URI Qualified Code(s): J06.9 - Acute upper respiratory infection, unspecified Instructions Patient Instructions: Sore Throat, DI for Fever (Symptom) -- Adult Discharge ED Provider: Ladonna Spangler [facility] [place] HPI General Stated complaint: sore throat, body aches Mode of Arrival: Ambulatory Source of Information: Patient and Parent(s) Limitations: No Limitations Time Seen by Provider: 04/20/22 18:15 Description of Symptoms (Recalled from Triage Doc. 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 Symptoms (Recalled from RN notes): Yes Resp Symptoms (Recalled from RN notes): Yes Skin Symptoms (Recalled from RN notes): No MS Symptoms (Recalled from RN notes): No Functional Status (Recalled from RN notes): WNL History of Present Illness Provider Complaint: Patient states that today she has been having fever, chills, bodyaches, sore throat, headache, and ear pain States that she took Tylenol earlier today and she felt a little better but after the Tylenol wore off she started again with the fever and feeling achy and vomiting so this evening when she was still feeling bad mother brought her in Related Data Previous Rx's Medication Instructions Recorded L norgest/E estradiol-E estrad 1 tab PO DAILY #91 tabs 01/31/22 0.15 mg-30 mcg (84)/10 mcg(7) tabs,3m
[2022-04-20 18:47] LABS: Adenovirus,PCR Not Detected (NotDetected); Bordetella Pertussis Not Detected (NotDetected); Chlamydophila Pneumoniae, PCR Not Detected (NotDetected); Coronavirus 19, PCR Not Detected (NotDetected); Coronavirus 229E Not Detected (NotDetected); Coronavirus NL63 Not Detected (NotDetected); Coronavirus OC43 Not Detected (NotDetected); Coronovirus HKU1,PCR Not Detected (NotDetected); Human Metapneumovirus Not Detected (NotDetected); Influenza A, PCR Not Detected (NotDetected); Influenza AH1, 2009 Not Detected (NotDetected); Influenza AH1, PCR Not Detected (NotDetected); Influenza AH3,PCR Not Detected (NotDetected); Influenza B, PCR Not Detected (NotDetected); Mycoplasma Pneumoniae, PCR Not Detected (NotDetected); Parainfluenza 1, PCR Not Detected (NotDetected); Parainfluenza 2, PCR Not Detected (NotDetected); Parainfluenza 3, PCR Not Detected (NotDetected); Parainfluenza 4, PCR Not Detected (NotDetected); Respiratory Syncytial Virus Not Detected (NotDetected); Rhinovirus/Enterovirus Not Detected (NotDetected)
[2022-04-20 18:52] LABS: UTC Influenza A Antigen Negative (Negative); UTC Strep Screen (Rapid) Negative (Negative)
[2022-04-20 18:53] LABS: UTC Influenza B Antigen Negative (Negative)
[2022-04-20 19:39] VITALS: BP 114/67; PULSE 146; RESP 18; TEMP 37.2; O2SAT 99
== END 2022-04-20 19:51 | disposition home or self-care (01) ==
PROVIDERS: Emergency Provider Nurse Practitioner; PCP Family Medicine
DX: J06.9 Acute upper respiratory infection, unspecified (principal)
CPT/HCPCS: 87581; 87632; 87798; 87804; 87880; 96372; 99212; C9803; G0463; J0696; U0003; U0005

== ENCOUNTER 2022-08-20 23:07 | Emergency (ER) | payer BC, SELFPAY ==
[2022-08-20 23:08] VITALS: BP 136/80; PULSE 110; RESP 16; TEMP 37.5; O2SAT 99; BMI 21.7
--- NOTE | 2022-08-20 23:21 | ECG_ITS ---
APPROVED REPORT Exam: Resting ECG HR:99 bpm ECG Measurements Heart Rate 99 AXES MA 108 P 70 QRSd 84 QRS 55 QT 332 T 51 QTc 388 Conclusion SINUS RHYTHM WITH SHORT MA INTERVAL BORDERLINE ECG UNCONFIRMED REPORT Electronically signed by : Faheem Dove MD 08/21/2022 13:32:52
--- NOTE | 2022-08-20 23:27 | XR_ITS ---
PROCEDURE INFORMATION: Exam: XR Chest Exam date and time: 08/21/2022 12:11 AM Age: 22 years old Clinical indication: Pain; Chest pressure; Additional info: Cp TECHNIQUE: Imaging protocol: Radiologic exam of the chest. Views: 1 view. COMPARISON: CR CXR CHEST(2 VIEWS-NOT PORTABLE) 06/12/2016 12:03 AM FINDINGS: Lungs: Unremarkable. No consolidation. Pleural spaces: Unremarkable. No pleural effusion. No pneumothorax. Heart/Mediastinum: Unremarkable. No cardiomegaly. Bones/joints: Unremarkable. IMPRESSION: No acute findings.
[2022-08-20 23:30] VITALS: BP 125/76; PULSE 97; O2SAT 97
--- NOTE | 2022-08-20 23:30 | PC.NURSE ---
Pt offered warm blanket. Call light within reach. No other needs at this time.
[2022-08-20 23:34] LABS: Microscopic, Urine URINE MICROSCOPIC (MICROSCOPIC)
[2022-08-20 23:47] LABS: Basophils % 0.2 % (0.1-2.0); Eosinophils # 0.1 K/mm3 (0.0-0.4); Eosinophils % 0.5 % (0.1-12.0); Hematocrit 46.4 % (37.0-47.0); Hemoglobin 15.7 g/dL (12.2-16.2); Lymphocytes # 0.8 K/mm3 (0.7-4.5); Lymphocytes % 6.9 % (10-50); Mean Corpuscular HGB Conc 33.8 g/dL (31.8-35.4); Mean Corpuscular Hemoglobin 30.1 pg (27.0-31.2); Mean Platelet Volume 9.5 fl (7.4-10.4); Monocytes # 0.6 K/mm3 (0.1-1.0); Monocytes % 5.8 % (1.7-9.3); Neutrophils # 9.5 K/mm3 (1.8-7.8); Neutrophils % 86.6 % (37.0-80.0); Platelet Count 244 K/mm3 (142-424); Red Blood Count 5.21 M/mm3 (4.20-5.40); Red Cell Distribution Width 12.7 % (11.5-17.5)
[2022-08-20 23:50] LABS: Chloride 103 mmol/L (98-107); Sodium 137 mmol/L (136-145)
[2022-08-20 23:52] LABS: Blood Urea Nitrogen 12 mg/dl (7-17); Creatinine Clearance Estimated 111 mL/min (50-200); Estimated Glomerular Filt Rate 105 ml/min (>60); GFR (African American) 127 ML/MIN (>60); MANUAL DIFFERENTIAL MANUAL DIFFERENTIAL (MANUAL DIFF)
[2022-08-20 23:53] LABS: Alanine Aminotransferase 21 U/L (12-78); Albumin Level 4.6 g/dl (3.5-5.0); Albumin/Globulin Ratio 1.6 (1.1-1.8); Alkaline Phosphatase 146 U/L (38-126); Aspartate Amino Transferase 31 U/L (14-36); Bilirubin,Total 0.9 mg/dl (0.2-1.3); Calcium 8.9 mg/dl (8.4-10.2); Carbon Dioxide 25 mmol/L (22.0-30.0); Globulin 2.8 g/dL (1.3-3.2); Glucose 114 mg/dl (74-100); Total Protein,Serum 7.4 g/dl (6.3-8.2)
[2022-08-20 23:55] LABS: Urine Pregnancy, HCG Qual. Negative (Negative)
--- NOTE | 2022-08-20 23:57 | PC.NURSE ---
RAD at for CXR
[2022-08-20 23:58] LABS: D-Dimer 0.75 ug/mL (0.0-0.5)
[2022-08-20 23:58] LABS: Appearance,Urine CLEAR (Clear); Bilirubin,Urine Negative (Negative); Blood, Urine Negative (Negative); Color,Urine YELLOW (Yellow); Glucose,Urine (UA) Negative (Negative); Ketones,Urine Negative (Negative); Leukocyte Esterase,Urine Negative (Negative); Nitrate,Urine Negative (Negative); Protein,Urine TRACE (Negative); Specific Gravity, Urine >= 1.030 (1.005-1.030)
--- NOTE | 2022-08-21 00:03 | CT_ITS ---
PROCEDURE INFORMATION: Exam: CTA Chest With Contrast Exam date and time: 08/21/2022 12:27 AM Age: 22 years old Clinical indication: Shortness of breath; Additional info: SOB, positive d-dimer TECHNIQUE: Imaging protocol: Computed tomographic angiography of the chest with contrast. 3D rendering (Not supervised by radiologist): MIP and/or 3D reconstructed images were created by the technologist. Radiation optimization: All CT scans at this facility use at least one of these dose optimization techniques: automated exposure control; mA and/or kV adjustment per patient size (includes targeted exams where dose is matched to clinical indication); or iterative reconstruction. Contrast material: ISOVUE; Contrast volume: 70 ml; Contrast route: INTRAVENOUS (IV); REPORTING DATA: Count of CT and Cardiac NM exams in prior 12 months: This patient has received 0 known CTs and 0 known cardiac nuclear medicine studies in the 12 months prior to the current study. COMPARISON: CR XR CHEST PORTABLE 08/21/2022 12:11 AM FINDINGS: Pulmonary arteries: Normal. No pulmonary emboli. Aorta: Unremarkable. No aortic aneurysm. No aortic dissection. Lungs: There is a small calcified granuloma in the right lower lobe. Lungs are otherwise clear. Pleural spaces: Unremarkable. No pneumothorax. No pleural effusion. Heart: Unremarkable. No cardiomegaly. No pericardial effusion. Lymph nodes: Unremarkable. No enlarged lymph nodes. Gallbladder and bile ducts: The gallbladder is surgically absent. Bones/joints: Unremarkable. No acute fracture. Soft tissues: Unremarkable. IMPRESSION: No evidence of pulmonary embolus or other significant pathology in the chest.
[2022-08-21 00:05] LABS: Lymphocytes % 11 % (10-50); Monocytes % 1 % (2-9); Neutrophils % 88 % (42-76); Platelet Estimate Normal; RBC Morphology Normal; Total Cells Counted 100
--- NOTE | 2022-08-21 00:20 | PC.NURSE ---
Pt gone to RAD for CT
--- NOTE | 2022-08-21 00:31 | PC.NURSE ---
Pt back from CT
[2022-08-21 01:02] LABS: Bacteria,Urine 2+ /lpf; WBC,Urine Occasional #/hpf (0-3)
--- NOTE | 2022-08-21 01:04 | HMH.EDGENADL ---
Discharge Plan Disposition Patient Disposition: Home, Self-Care Condition: Good Chief Complaint: Fever Prescriptions Prescriptions: No Action L norgest/e.estradiol-e.estrad [Seasonique] 0.15 mg-30 mcg (84)/10 mcg (7) tablets,dose pack,3 month 1 tab PO DAILY Qty: 91 3RF rsvmczazfyqirpm-kysdtyxap-JL [Bromfed DM] 2-30-10 mg/5 mL Syrup 10 ml PO Q4H PRN (Reason: Cough) Qty: 240 0RF oseltamivir [Tamiflu] 75 mg capsule 75 mg PO BID 5 Days Qty: 10 0RF azithromycin [Zithromax Z-Micheal] 250 mg tablet See Rx Instructions .ROUTE .COMPLEX 5 Days Qty: 6 0RF Rx Instructions: For 250 mg dose pack: take 500 mg today (day 1), then 250 mg for 4 days (days 2-5) ondansetron 4 mg tablet,disintegrating 4 mg PO Q8H PRN (Reason: nausea and vomiting) Qty: 10 0RF azithromycin 200 mg/5 mL suspension for reconstitution See Rx Instructions .ROUTE .COMPLEX 5 Days Qty: 37.5 0RF Rx Instructions: take 12.5 mL (500 mg) by mouth today (day 1), then 6.25 mL (250 mg) daily for 4 days (days 2-5) prednisolone 15 mg/5 mL solution 15 mg PO DAILY 3 Days Qty: 15 0RF Referrals Follow up/Referrals: Justin Ireland MD [Primary Care Provider] - See instructions Activity Restrictions/Add. Instructions Additional Instructions/Restrictions: Motrin and Tylenol as needed. Stay well-hydrated. PCP follow-up in 1 to 2 days Clinical Impressions Clinical Impression: Viral infection Discharge ED Provider: Bill Sosa General Adult HPI General Chief complaint: Fever Stated complaint: fever, right side pain, body hurting Time Seen by Provider: 08/20/22 23:12 Mode of Arrival: Ambulatory Source of Information: Patient Limitations: No Limitations Description of Symptoms (Recalled from ER Triage Doc. by RN): Pt arrives w c/o fever, nausea, chest pain, and right sided flank burning along w generalized body aches since approx 1630 this afternoon. History of Present Illness HPI narrative: 22yo F presents to the ER complaining of fever, nausea, chest pain, right flank burning and generalized body aches since 4:00 in the afternoon. No known sick contact. Reports no chronic illness. Takes no medication. Related Data Previous Rx's Medication Instructions Recorded L norgest/E estradiol-E estrad 1 tab PO DAILY #91 tabs 01/31/22 0.15 mg-30 mcg (84)/10 mcg(7) tabs,3mos (Seasonique) azithromycin 200 mg/5 mL oral See Rx Instructions PO .COMPLEX 5 03/04/22 suspension days #37.5 mL prednisolone 15 mg/5 mL oral 15 mg (5 mL) PO DAILY 3 days #15 mL 03/04/22 solution nbzvqkihwzarihk-snxufgxszbymvoe-ZL 10 ml PO Q4H PRN Cough #240 mL 03/20/22 2 mg-30 mg-10 mg/5 mL oral syrup (Bromfed DM) oseltamivir 75 mg capsule (Tamiflu) 75 mg PO BID 5 days #10 caps 03/20/22 azithromycin 250 mg tablet See Rx Instructions PO .COMPLEX 5 04/20/22 (Zithromax Z-Micheal) days #6 tabs ondansetron 4 mg disintegrating 4 mg PO Q8H PRN nausea and 04/20/22 tablet vomiting #10 tabs Allergies Allergy/AdvReac Type Severity Reaction Status Date / Time No Known Allergies Allergy Verified 01/31/22 11:14 [facility] Disclaimer: The information contained in this section may have been updated after the patient was seen, as this information can be updated by other users. 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 History of placement of ear tubes Hx of cholecystectomy Hx of wisdom tooth extraction Social History Smoking Status: Never smoker second hand exposure: Yes alcohol intake: never substance use type: denies use current occupational status: other Travel in the last 8 weeks: None housing: house caffeine: No ROS Obtained: Yes Systems reviewed as appropriate & no additional complaints except as documented Physical Exam General General appearance: alert and in no apparent distress Head Head exam: atraumatic Eye Eye exam: Present normal appearan
[2022-08-21 01:19] VITALS: BP 137/87; PULSE 100; RESP 16; TEMP 37.5; O2SAT 97
[2022-08-21 01:21] LABS: Coronavirus 19, PCR Not Detected (NotDetected); Influenza A, PCR Not Detected (NotDetected); Influenza B, PCR Not Detected (NotDetected)
== END 2022-08-21 01:24 | disposition home or self-care (01) ==
PROVIDERS: Emergency Provider Family Medicine; PCP Family Medicine
DX: R50.9 Fever, unspecified (principal); B34.9 Viral infection, unspecified; R07.9 Chest pain, unspecified; R06.02 Shortness of breath; R00.0 Tachycardia, unspecified
CPT/HCPCS: 71045; 71275; 80053; 81001; 81025; 85007; 85025; 85378; 87086; 93005; 99285; C9803; Q9967; U0003; U0005

== ENCOUNTER 2023-01-15 11:24 | Emergency (ER) | payer OTHER, BC, SELFPAY ==
[2023-01-15 11:30] VITALS: BP 129/74; PULSE 59; RESP 18; TEMP 36.4; O2SAT 98; BMI 22.7
[2023-01-15 11:45] LABS: Adenovirus,PCR Not Detected (NotDetected); Bordetella Pertussis Not Detected (NotDetected); Chlamydophila Pneumoniae, PCR Not Detected (NotDetected); Coronavirus 19, PCR Not Detected (NotDetected); Coronavirus 229E Not Detected (NotDetected); Coronavirus NL63 Not Detected (NotDetected); Coronavirus OC43 Not Detected (NotDetected); Coronovirus HKU1,PCR Not Detected (NotDetected); Human Metapneumovirus Not Detected (NotDetected); Influenza A, PCR Not Detected (NotDetected); Influenza AH1, 2009 Not Detected (NotDetected); Influenza AH1, PCR Not Detected (NotDetected); Influenza AH3,PCR Not Detected (NotDetected); Influenza B, PCR Not Detected (NotDetected); Mycoplasma Pneumoniae, PCR Not Detected (NotDetected); Parainfluenza 1, PCR Not Detected (NotDetected); Parainfluenza 2, PCR Not Detected (NotDetected); Parainfluenza 3, PCR Not Detected (NotDetected); Parainfluenza 4, PCR Not Detected (NotDetected); Respiratory Syncytial Virus Not Detected (NotDetected)
--- NOTE | 2023-01-15 11:47 | EXP.UTC ---
Discharge Plan Disposition Patient Disposition: Home, Self-Care Condition: Good Prescriptions Prescriptions: New jiqjjotpatfgrwo-xwqhgemiw-ZN [Bromfed DM] 2-30-10 mg/5 mL syrup 10 ml PO Q6H PRN (Reason: cold symptoms) Qty: 200 0RF azithromycin 250 mg tablet See Rx Instructions .ROUTE .COMPLEX Qty: 6 0RF Rx Instructions: For 250 mg dose pack: take 500 mg today (day 1), then 250 mg for 4 days (days 2-5) No Action montelukast 10 mg tablet 10 mg PO DAILY Patient Comments: TAKE 1 TABLET BY MOUTH ONCE DAILY loratadine 10 mg tablet 10 mg PO DAILY Patient Comments: TAKE 1 TABLET BY MOUTH ONCE DAILY FOR 90 DAYS azelastine-fluticasone 137-50 mcg/spray spray,non-aerosol 1 spray INTRANASAL DAILY Patient Comments: USE 1 SPRAY(S) IN EACH NOSTRIL TWICE DAILY Referrals Follow up/Referrals: Dilcia Coyle PA [Primary Care Provider] - See instructions Clinical Impressions Clinical Impression: URI (upper respiratory infection) Instructions Patient Instructions: DI for Viral Upper Respiratory Infection -- Adult Discharge ED Provider: Nora Chinchilla [facility] General Stated complaint: persistant cough yang Mode of Arrival: Ambulatory Source of Information: Patient Limitations: No Limitations Time Seen by Provider: 01/15/23 11:39 Description of Symptoms (Recalled from Triage Doc. 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 She states she has a lot of congestion with drainage down the back of her throat. She reports a strong cough where she feels like she is trying to cough up the phlegm. She relates that she has taken Robitussin for her symptoms. Related Data Home Medications Medication Instructions Recorded Confirmed azelastine-fluticasone 137 mcg-50 1 spray intranasal DAILY . 01/15/23 01/15/23 mcg/spray nasal spray loratadine 10 mg tablet 10 mg PO DAILY allergies 01/15/23 01/15/23 montelukast 10 mg tablet 10 mg PO DAILY allergies 01/15/23 01/15/23 Previous Rx's Medication Instructions Recorded azithromycin 250 mg tablet See Rx Instructions PO .COMPLEX #6 01/15/23 tabs toheefjgjprztuk-nbbolpulhiohugu-NC 10 ml PO Q6H PRN cold symptoms 01/15/23 2 mg-30 mg-10 mg/5 mL oral syrup #200 mL (Bromfed DM) Allergies Allergy/AdvReac Type Severity Reaction Status Date / Time No Known Allergies Allergy Verified 01/15/23 11:45 Worker's Comp Is this a Worker's Comp case?: No [facility] Disclaimer: The information contained in this section may have been updated after the patient was seen, as this information can be updated by other users. 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 History of placement of ear tubes Hx of cholecystectomy Hx of wisdom tooth extraction Social History Smoking Status: Never smoker second hand exposure: Yes alcohol intake: never substance use type: denies use current occupational status: other Travel in the last 8 weeks: None housing: house caffeine: No ROS Obtained: Yes All systems reviewed & no additional complaints except as documented Constitutional Constitutional: Reports system reviewed and no additional complaints, except as documented, Reports headache(s) and Reports malaise Eyes Eyes: Reports system reviewed and no additional complaints, except as documented ENT Ears, Nose, Mouth, and Throat: Reports system reviewed and no additional complaints, except as documented, Reports headache(s), Reports nasal congestion, Reports nasal discharge and Reports post nasal drip Ca
[2023-01-15 11:59] VITALS: BP 129/74; PULSE 59; RESP 18; TEMP 36.4; O2SAT 98
[2023-01-15 16:13] LABS: Rhinovirus/Enterovirus Detected (NotDetected)
== END 2023-01-15 11:59 | disposition home or self-care (01) ==
PROVIDERS: Emergency Provider Nurse Practitioner Family; PCP Physician Assistant
DX: B34.8 Other viral infections of unspecified site (principal); J06.9 Acute upper respiratory infection, unspecified
CPT/HCPCS: 87581; 87632; 87798; 99212; 99214; G0463

== ENCOUNTER 2023-02-25 08:50 | Emergency (ER) | payer OTHER, BC, SELFPAY ==
[2023-02-25 09:00] VITALS: BP 122/73; PULSE 56; RESP 19; TEMP 36.9; O2SAT 97; BMI 22.7
--- NOTE | 2023-02-25 09:24 | EXP.UTC ---
Discharge Plan Disposition Patient Disposition: Home, Self-Care Condition: Good Prescriptions Prescriptions: New promethazine 12.5 mg suppository 12.5 mg MT Q8HP PRN (Reason: nausea and vomiting) 2 Days Qty: 6 0RF No Action montelukast 10 mg tablet 10 mg PO DAILY Patient Comments: TAKE 1 TABLET BY MOUTH ONCE DAILY loratadine 10 mg tablet 10 mg PO DAILY Patient Comments: TAKE 1 TABLET BY MOUTH ONCE DAILY FOR 90 DAYS azelastine-fluticasone 137-50 mcg/spray spray,non-aerosol 1 spray INTRANASAL DAILY Patient Comments: USE 1 SPRAY(S) IN EACH NOSTRIL TWICE DAILY Referrals Follow up/Referrals: Dilcia Coyle PA [Primary Care Provider] - See instructions Activity Restrictions/Add. Instructions Additional Instructions/Restrictions: Monitor temperature. Seek treatment if fever develops. Follow-up immediately if new or worse symptoms worsen or no noticeable improvement over 48 hours. Increase fluids such as water, Gatorade, Powerade, juice or Pedialyte with limited formula/dietary in children No food is okay as long as you are drinking. Once ready to eat start bland such as bananas, rice, applesauce, toast. Contagious until no diarrhea, vomiting, fever times 48 hours without medication Avoid antidiarrheals unless told otherwise. Best to let the virus run its course. Follow-up immediately for new or worsening symptoms or no noticeable improvement over the next 48 hours. Clinical Impressions Clinical Impression: Nausea & vomiting Qualifiers: Vomiting type: unspecified Qualified Code(s): R11.2 - Nausea with vomiting, unspecified Instructions Patient Instructions: Nausea and Vomiting-Adult Discharge ED Provider: Steffen ([facility])[place] [place] General Stated complaint: vomiting Mode of Arrival: Ambulatory Source of Information: Patient Limitations: No Limitations Time Seen by Provider: 02/25/23 09:24 Description of Symptoms (Recalled from Triage Doc. by RN): Pt stated that last night started with vomitting, nasuea, and stomach ache HEENT Symptoms (Recalled from RN notes): No Resp Symptoms (Recalled from RN notes): No Skin Symptoms (Recalled from RN notes): No MS Symptoms (Recalled from RN notes): No Functional Status (Recalled from RN notes): n/a History of Present Illness Provider Complaint: 23 yr old female presents for vomiting, nausea, and stomach ache that started last pm Related Data Home Medications Medication Instructions Recorded Confirmed azelastine-fluticasone 137 mcg-50 1 spray intranasal DAILY . 01/15/23 02/25/23 mcg/spray nasal spray loratadine 10 mg tablet 10 mg PO DAILY allergies 01/15/23 02/25/23 montelukast 10 mg tablet 10 mg PO DAILY allergies 01/15/23 02/25/23 Previous Rx's Medication Instructions Recorded promethazine 12.5 mg rectal 12.5 mg MT Q8HP PRN nausea and 02/25/23 suppository vomiting 2 days #6 ea Allergies Allergy/AdvReac Type Severity Reaction Status Date / Time No Known Allergies Allergy Verified 02/25/23 09:08 Worker's Comp Is this a Worker's Comp case?: No [facility] Disclaimer: The information contained in this section may have been updated after the patient was seen, as this information can be updated by other users. 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
[2023-02-25 09:31] LABS: Coronavirus 19, PCR Not Detected (NotDetected); Influenza A, PCR Not Detected (NotDetected); Influenza B, PCR Not Detected (NotDetected)
[2023-02-25 10:04] VITALS: BP 122/73; PULSE 56; RESP 19; TEMP 36.9; O2SAT 97
== END 2023-02-25 10:04 | disposition home or self-care (01) ==
PROVIDERS: Emergency Provider Nurse Practitioner Family; PCP Physician Assistant
DX: R11.2 Nausea with vomiting, unspecified (principal)
CPT/HCPCS: 87636; 99212; 99214; G0463

== ENCOUNTER 2023-03-21 15:09 | Emergency (ER) | payer OTHER, BC, SELFPAY ==
[2023-03-21 15:50] VITALS: BP 132/76; PULSE 71; RESP 18; TEMP 37.1; O2SAT 99; BMI 22.8
--- NOTE | 2023-03-21 15:56 | EXP.UTC ---
Discharge Plan Disposition Patient Disposition: Home, Self-Care Condition: Good Prescriptions Prescriptions: New amoxicillin [amoxicillin] 875 mg tablet 875 mg PO Q12H Qty: 20 0RF methylprednisolone 4 mg Tablets,Dose Pack 4 mg PO DIRECTED Qty: 21 0RF hjutbshdkhtbydv-szsbuzoto-II [Bromfed DM] 2-30-10 mg/5 mL Syrup 5 ml PO Q6H PRN (Reason: Cough) Qty: 240 0RF No Action montelukast 10 mg tablet 10 mg PO DAILY Patient Comments: TAKE 1 TABLET BY MOUTH ONCE DAILY loratadine 10 mg tablet 10 mg PO DAILY Patient Comments: TAKE 1 TABLET BY MOUTH ONCE DAILY FOR 90 DAYS azelastine-fluticasone 137-50 mcg/spray spray,non-aerosol 1 spray INTRANASAL DAILY Patient Comments: USE 1 SPRAY(S) IN EACH NOSTRIL TWICE DAILY Referrals Follow up/Referrals: Dilcia Coyle PA [Primary Care Provider] - See instructions Activity Restrictions/Add. Instructions Additional Instructions/Restrictions: Drink plenty of fluids. Take tylenol or ibuprofen for pain or fever. Take the medications as directed. Follow up with your regular doctor. GO TO THE ER FOR ANY WORSENING SYMPTOMS Clinical Impressions Clinical Impression: Otitis media Stand Alone Forms Stand Alone Forms: Work/School Release Instructions Patient Instructions: Middle Ear Infection Discharge ED Provider: Mookie Khan [facility] [place] General Stated complaint: ear ache Time Seen by Provider: 03/21/23 15:56 History of Present Illness Provider Complaint: She states that for the past 2 days she has had worsening left ear pain and sinus congestion. Related Data Home Medications Medication Instructions Recorded Confirmed azelastine-fluticasone 137 mcg-50 1 spray intranasal DAILY . 01/15/23 03/21/23 mcg/spray nasal spray loratadine 10 mg tablet 10 mg PO DAILY allergies 01/15/23 03/21/23 montelukast 10 mg tablet 10 mg PO DAILY allergies 01/15/23 03/21/23 Previous Rx's Medication Instructions Recorded amoxicillin 875 mg tablet 875 mg PO Q12H #20 tabs 03/21/23 ohmnitjeiptimpo-hwruwabbdcpeedv-EC 5 ml PO Q6H PRN Cough #240 mL 03/21/23 2 mg-30 mg-10 mg/5 mL oral syrup (Bromfed DM) methylprednisolone 4 mg tablets in 4 mg PO DIRECTED #21 tabs 03/21/23 a dose pack Allergies Allergy/AdvReac Type Severity Reaction Status Date / Time No Known Allergies Allergy Verified 03/21/23 16:09 [facility] Disclaimer: The information contained in this section may have been updated after the patient was seen, as this information can be updated by other users. 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) History of placement of ear tubes Hx of cholecystectomy Hx of wisdom tooth extraction Social History Smoking Status: Never smoker second hand exposure: Yes alcohol intake: never substance use type: denies use current occupational status: other Travel in the last 8 weeks: None housing: house caffeine: No ROS Obtained: Yes All systems reviewed & no additional complaints except as documented Constitutional Constitutional: Denies chills, Reports fever(s) and Reports poor appetite Eyes Eyes: Denies eye discharge ENT Ears, Nose, Mouth, and Throat: Denies ear discharge, Reports otalgia, Denies hearing loss, Denies sinus pain and Reports sore throat Cardiovascular Cardiovascular: Denies chest pain and Denies dyspnea Respiratory Respiratory: Denies chest congestion, Reports cough and Denies dyspnea Gastrointestinal Gastrointestingal: Denies abdominal pain, diarrhea, nausea or vomiting Musculoskeletal Musculoskeletal: Denies arthralgias Integumentary/Breasts Skin/Breast: Denies rash Physical Exam General General appearance: alert and in no apparent distress Head Head exam: atraumatic, normocephalic and normal inspection Eye Eye exam: Present normal appearance; Absent PERRL or EOMI ENT ENT exam: Pr
[2023-03-21 16:20] VITALS: BP 132/76; PULSE 71; RESP 18; TEMP 37.1; O2SAT 99
== END 2023-03-21 16:20 | disposition home or self-care (01) ==
PROVIDERS: Emergency Provider Nurse Practitioner Family; PCP Physician Assistant
DX: H66.93 Otitis media, unspecified, bilateral (principal); R09.81 Nasal congestion
CPT/HCPCS: 99212; 99214; G0463

== ENCOUNTER 2023-05-08 08:07 | Outpatient (CLI) | payer OTHER, BC, SELFPAY ==
[2023-05-08 09:56] LABS: HCG,Quantitative 2090 mIU/ml (0-5.42)
[2023-05-09 08:14] LABS: Progesterone 7.3 ng/mL (.)
== END 2023-05-08 23:59 ==
LOC: LAB 08:08
PROVIDERS: PCP Physician Assistant; Visit Provider Obstetrics & Gynecology
DX: N92.6 Irregular menstruation, unspecified (principal)
CPT/HCPCS: 36415; 84144; 84702

== ENCOUNTER 2023-05-29 16:48 | Outpatient (CLI) | payer OTHER, BC, SELFPAY | END 2023-05-29 23:59 | LOC: LAB.DROPOF 16:48 | PROVIDERS: PCP Obstetrics & Gynecology; Visit Provider Obstetrics & Gynecology | DX: Z34.91 Encounter for supervision of normal pregnancy, unspecified, first trimester (principal); Z3A.01 Less than 8 weeks gestation of pregnancy | CPT/HCPCS: 87086 ==

== ENCOUNTER 2023-05-31 08:07 | Outpatient (CLI) | payer OTHER, BC, SELFPAY ==
[2023-05-31 08:44] LABS: Basophils # 0.1 K/mm3 (0-0.2); Basophils % 0.8 % (0.1-2.0); Eosinophils # 0.1 K/mm3 (0.0-0.4); Eosinophils % 0.6 % (0.1-12.0); Hematocrit 40.2 % (37.0-47.0); Hemoglobin 13.7 g/dL (12.2-16.2); Lymphocytes # 1.4 K/mm3 (0.7-4.5); Lymphocytes % 18.5 % (10-50); Mean Corpuscular HGB Conc 34.2 g/dL (31.8-35.4); Mean Corpuscular Hemoglobin 31.4 pg (27.0-31.2); Mean Corpuscular Volume 91.9 fl (81-99); Mean Platelet Volume 9.6 fl (7.4-10.4); Monocytes # 0.5 K/mm3 (0.1-1.0); Neutrophils # 5.7 K/mm3 (1.8-7.8); Neutrophils % 74.1 % (37.0-80.0); Platelet Count 215 K/mm3 (142-424); Red Blood Count 4.38 M/mm3 (4.20-5.40); Red Cell Distribution Width 13.4 % (11.5-17.5); White Blood Count 7.6 K/mm3 (4.8-10.8)
[2023-06-01 07:30] LABS: HIV Screen 4th Generation wRfx Non Reactive (Non Reactive); Rubella Antibodies, IgG 1.85 index (Immune >0.99)
[2023-06-01 10:13] LABS: Rapid Plasma Reagin Ab Titer Non Reactive titer (NonRea<1:1)
[2023-06-02 11:32] LABS: Hepatitis B Surface Antigen Negative; Hepatitis C Antibody Non Reactive
== END 2023-05-31 23:59 ==
LOC: LAB 08:07
PROVIDERS: PCP Physician Assistant; Visit Provider Obstetrics & Gynecology
DX: Z34.91 Encounter for supervision of normal pregnancy, unspecified, first trimester (principal)
CPT/HCPCS: 36415; 85025; 86593; 86703; 86762; 86850; 87340; 87380; G0432

== ENCOUNTER 2023-06-09 12:22 | Emergency (ER) | payer OTHER, BC, SELFPAY ==
[2023-06-09 12:55] VITALS: BP 117/66; PULSE 87; RESP 20; TEMP 37.6; O2SAT 100; BMI 22.8
[2023-06-09 13:09] LABS: Adenovirus,PCR Not Detected (NotDetected); Coronavirus 229E Not Detected (NotDetected); Coronavirus NL63 Not Detected (NotDetected); Coronavirus OC43 Not Detected (NotDetected); Coronovirus HKU1,PCR Not Detected (NotDetected); Human Metapneumovirus Not Detected (NotDetected); Influenza A, PCR Not Detected (NotDetected); Influenza AH1, 2009 Not Detected (NotDetected); Influenza AH1, PCR Not Detected (NotDetected); Influenza AH3,PCR Not Detected (NotDetected); Influenza B, PCR Not Detected (NotDetected); Parainfluenza 1, PCR Not Detected (NotDetected); Parainfluenza 2, PCR Not Detected (NotDetected); Parainfluenza 3, PCR Not Detected (NotDetected); Parainfluenza 4, PCR Not Detected (NotDetected); Respiratory Syncytial Virus Not Detected (NotDetected); Rhinovirus/Enterovirus Not Detected (NotDetected)
[2023-06-09 13:14] LABS: UTC Strep Screen (Rapid) Negative (Negative)
--- NOTE | 2023-06-09 13:18 | EXP.UTC ---
Discharge Plan Disposition Patient Disposition: Home, Self-Care Condition: Good Prescriptions Prescriptions: No Action pantoprazole [Protonix] 40 mg tablet,delayed release (DR/EC) 40 mg PO DAILY Qty: 30 2RF progesterone micronized [Prometrium] 200 mg capsule 200 mg vaginal HS Qty: 30 2RF Rx Instructions: insert vaginally at bedtime pyridoxine (vitamin B6) 25 mg tablet 25 mg PO TID Qty: 90 0RF loratadine 10 mg tablet 10 mg PO DAILY Patient Comments: TAKE 1 TABLET BY MOUTH ONCE DAILY FOR 90 DAYS Referrals Follow up/Referrals: Dilcia Coyle PA [Primary Care Provider] - See instructions Activity Restrictions/Add. Instructions Additional Instructions/Restrictions: *Monitor Temp, Over the counter Motrin or Tylenol as directed/as needed Tylenol every 4 hours and Motrin every 6 hours (as long as your family doctor has told you that you can take it) for fever or pain. and straight to ER if unable to lower temp less than 101.0 after medication given *Warm salt water gargles may help to soothe the throat *Throat Lozenges? *Warm fluids like tea with honey may help to soothe the throat? *Sleep elevated *Humidifier/Vaporizer Your throat swab was sent for culture. Those results are typically sent to your primary care. Be sure to follow up in 2-3 days with your family doctor/primary care physician if no improvement so they can review those result and treat if necessary. If you don?t have a primary care doctor, I recommend you get one but in the mean time, you will have to return to a walk in clinic Follow up IMMEDIATELY for new or worsening symptoms or no Noticeable improvement over the next 48-72 hours. 911 for difficulty breathing or swallowing You were tested for today for Upper Respiratory Panel with COVID19 your test result should be back in the next 24hours, you may check your results on the [facility] if your COVID is positive you must Quarantine for 5 days Clinical Impressions Clinical Impression: Viral syndrome Stand Alone Forms Stand Alone Forms: Work/School Release Instructions Patient Instructions: DI for Viral Syndrome Discharge ED Provider: Ladonna Spangler [facility] [place] General Stated complaint: YANG, body aches, chills Mode of Arrival: Ambulatory Source of Information: Patient Limitations: No Limitations Time Seen by Provider: 06/09/23 13:18 Description of Symptoms (Recalled from Triage Doc. 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 States that flu strep and COVID is going around States that she woke up this morning with headache, chills, body aches, and nasal congestion so she came in to get tested States she had a low grade fever of 100.0 Related Data Home Medications Medication Instructions Recorded Confirmed loratadine 10 mg tablet 10 mg PO DAILY allergies 01/15/23 06/09/23 Previous Rx's Medication Instructions Recorded progesterone micronized 200 mg 200 mg vaginal HS #30 caps 05/09/23 capsule (Prometrium) pyridoxine (vitamin B6) 25 mg 25 mg PO TID #90 tabs 05/17/23 tablet pantoprazole 40 mg tablet,delayed 40 mg PO DAILY #30 tabs 05/29/23 release (Protonix) Allergies Allergy/AdvReac Type Severity Reaction Status Date / Time No Known Allergies Allergy Verified 05/29/23 14:57 Worker's Comp Is this a Worker's Comp case?: No [facility] Dis[facility]: The information contained in this section may have been updated after the patient was seen, as this information can be updated by other users. Medical History (Updated 06/09/23 @ 13:27 by Ladonna Spangler APRN) Nausea and vomiting during No significant past medical history 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 History of placement of ear tubes Hx of cholecystectomy Hx of wisdom tooth extraction Family History Other No significant family history Social History Smoking Status: Never smoker second hand exposure: Yes alcohol intake: never substance use type: denies use current occupational status: other Travel in the last 8 weeks: None housing: house caffeine: No ROS Obtained: Yes All systems reviewed & no additional complaints except as documented and Yes Systems reviewed as appropriate & no additional complaints except as documented Constitutional Constitutional: Reports system reviewed and no additional complaints, except as documented, Reports as per HPI, Reports body ache, Reports chills, Reports fever(s) and Reports headache(s) ENT Ears, Nose, Mouth, and Throat: Reports system reviewed and no additional complaints, except as documented, Reports as per HPI, Reports headache(s) and Reports nasal congestion Cardiovascular Cardiovascular: Reports system reviewed and no additional complaints, except as documented and Reports as per HPI Respiratory Respiratory: Reports system reviewed and no additional complaints, except as documented and Reports as per HPI Gastrointestinal Gastrointestingal: Reports system reviewed and no additional complaints, except as documented and as per HPI Neurologic Neurologic: Reports headache(s) Physical Exam General General appearance: alert and in no apparent distress ENT ENT exam: Present mucous membranes moist Expanded ENT Exam Nose exam: Absent sinus tenderness Throat exam: Present tonsillar erythema; Absent tonsillar exudate Respiratory Respiratory exam: Present normal lung sounds bilaterally; Absent respiratory distress or wheezes Cardiovascular Cardiovascular exam: Present regular rate, normal rhythm and normal heart sounds Neurological Exam Neurological exam: Present alert, oriented X3 and normal gait Medical Decision Making Oswaldo Inquiry Pt receiving controlled substance: No Oswaldo was queried for this patient: No Vital Signs: 06/09/23 12:55 Temperature 99.6 F Temperature Source Oral Pulse Rate [Right Brachial] 87 Respiratory Rate 20 Blood Pressure [Right Arm] 117/66 Blood Pressure Mean [Right Arm] 83 Blood Pressure Source [Right Arm] Automatic Cuff Blood Pressure Position [Right Arm] Sitting 02 Sat by Pulse Oximetry 100 Oxygen Delivery Method Room Air Lab Data Lab results reviewed: Yes I reviewed the patient's lab results. Lab Results 06/09/23 13:14: Strep Scn Rapid Clinic Negative Orders (Tests/Meds): ORDERS Category Date Time Status Full Resp Panel w/COVID ([facility]) Routine Lab 06/09/23 12:54 Received Strep Screen Confirmation Stat Micro 06/09/23 13:14 Received
[2023-06-09 13:32] VITALS: BP 117/66; PULSE 87; RESP 20; TEMP 37.6; O2SAT 100
[2023-06-09 15:29] LABS: Coronavirus 19, PCR Detected (NotDetected)
== END 2023-06-09 13:34 | disposition home or self-care (01) ==
PROVIDERS: Emergency Provider Nurse Practitioner; PCP Physician Assistant
DX: O98.511 Other viral diseases complicating pregnancy, first trimester (principal); U07.1 COVID-19; Z3A.10 10 weeks gestation of pregnancy; R51.9 Headache, unspecified; R09.81 Nasal congestion
CPT/HCPCS: 87632; 87635; 87880; 99212; 99214; G0463

== ENCOUNTER 2023-08-21 13:01 | Outpatient (CLI) | payer OTHER, BC, SELFPAY ==
--- NOTE | 2023-08-21 13:04 | US_ITS ---
PROCEDURE: US OB /MATERNAL DETAIL CLINICAL INDICATION: 20 week anatomy scan COMPARISON: No exams were available for comparison FINDINGS: Transabdominal sonographic images of the pelvis were obtained. From her established due date she is 20 weeks 2 days. Single viable intrauterine gestation. Cephalic position. Placenta: Anteriorplacenta grade 1. There appears to be a posterior accessory lobe. There is an average amount of fluid. The cervix appears satisfactory. Closed and measuring 3.5 cm in length. Complete survey performed and was unremarkable on the submitted images as in PACS. No discrete anomalies identified on survey imaging by technologist. Active fetus. Three-vessel cord with satisfactory umbilical cord insertion. 4- chamber heart noted. Situs, aortic arch, LVOT, RVOT, three-vessel view appear normal. Survey of brain & ventricles Unremarkable. Cerebellum, thalamus, choroid plexus, cisterna magna appear normal. Face and neck survey unremarkable. nasion, lips and nose appeared normal. Diaphragm and chest views unremarkable. Abdomen: Both kidneys noted and unremarkable. Stomach and bladder noted and satisfactory. Spine: Survey of the spine satisfactory with no anomalies identified nor imaged. Cervical, thoracic, lower spine appear normal. Both arms and legs noted. Amniotic Fluid: Adequate. Measurements: Average ultrasound age 20weeks 1day. Estimated due date by ultrasound age 0901/07/2024. Estimated weight 322g BPD = 20weeks 2days HC = 20weeks 2days AC = 20weeks 1day FL = 19weeks 5days Growth Percentile= 27 percent Heart Rate = 144bpm Cerebellum = 20weeks 1day Humerus = 20weeks 2days HC/AC is 1.19 FL/BPD is 0.66 FL/AC is 0.21 IMPRESSION: 1. Viable fetus in the cephalic presentation with an anterior placenta grade 1. 2. The fluid is within normal limits. 3. Anatomical scan appears normal. We could not get a good profile view and would suggest a repeat ultrasound in 2-4 weeks. 4. biometry is consistent with the dates. Dictated by: Richie Baker MD 08/21/2023 16:07 Richie Baker MD in [place] 08/21/2023 16:07
== END 2023-08-21 23:59 | disposition home or self-care (01) ==
LOC: RAD 13:01
PROVIDERS: PCP Physician Assistant; Visit Provider Obstetrics & Gynecology
DX: O26.892 Other specified pregnancy related conditions, second trimester (principal); Z3A.20 20 weeks gestation of pregnancy; Z36.89 Encounter for other specified antenatal screening
CPT/HCPCS: 76811

== ENCOUNTER 2023-08-23 17:03 | Outpatient (CLI) | payer OTHER, BC, SELFPAY ==
[2023-08-28 16:12] LABS: Parvovirus B19, IgG 5.1 index (0.0-0.8); Parvovirus B19, IgM 0.1 index (0.0-0.8)
== END 2023-08-23 23:59 | disposition home or self-care (01) ==
LOC: LAB 17:04
PROVIDERS: PCP Physician Assistant; Visit Provider Obstetrics & Gynecology
DX: O26.892 Other specified pregnancy related conditions, second trimester (principal); Z3A.19 19 weeks gestation of pregnancy; R09.81 Nasal congestion; R51.9 Headache, unspecified
CPT/HCPCS: 36415; 86747

== ENCOUNTER 2023-09-08 15:12 | Outpatient (CLI) | payer OTHER, BC, SELFPAY ==
--- NOTE | 2023-09-08 15:44 | US_ITS ---
PROCEDURE: US OB FOLLOW UP CLINICAL INDICATION: f/u anatomy ultrasound for baby's face/profile COMPARISON: US US OB /MATERNAL DETAIL from 08/21/2023 FINDINGS: Transabdominal sonographic images of the pelvis were obtained. The following parameters are obtained: From her established due date she is 22weeks 6days Viable fetus in the cephalic presentation with an anterior placenta grade 1. The cervix measures 4.79 cm. heart rate: 149bpm bpm. Amniotic fluid index: Appears normal. No obvious anomalies evident. profile seen, nasion seen, stomach, bladder, kidneys, three-vessel cord, four chamber heart appear normal. IMPRESSION: 1. Viable fetus in the cephalic presentation with an anterior placenta grade 1. 2. The fluid is within normal limits. 3. profile and nasion seen today and appears normal. 4. Limited anatomical scan appears normal. Dictated by: Richie Baker MD 09/08/2023 17:28 Richie Baker MD in [place] 09/08/2023 17:28
== END 2023-09-08 23:59 | disposition home or self-care (01) ==
LOC: RAD 15:12
PROVIDERS: PCP Obstetrics & Gynecology; Visit Provider Obstetrics & Gynecology
DX: O26.892 Other specified pregnancy related conditions, second trimester (principal); Z36.2 Encounter for other antenatal screening follow-up; Z3A.22 22 weeks gestation of pregnancy
CPT/HCPCS: 76816

== ENCOUNTER 2023-09-09 08:05 | Emergency (ER) | payer OTHER, BC, SELFPAY ==
[2023-09-09 08:10] VITALS: BP 122/74; PULSE 95; RESP 18; TEMP 37.1; O2SAT 97; BMI 24.8
--- NOTE | 2023-09-09 08:23 | EXP.UTC ---
Discharge Plan Disposition Patient Disposition: Home, Self-Care Condition: Good Prescriptions Prescriptions: New amoxicillin 400 mg/5 mL suspension for reconstitution 500 mg PO TID 10 Days Qty: 187.5 0RF No Action magnesium oxide 400 mg magnesium capsule 400 mg PO DAILY Qty: 30 1RF Classic 28 mg iron- 800 mcg tablet 1 tab PO DAILY pantoprazole 40 mg tablet,delayed release (DR/EC) See Rx Instructions .ROUTE .COMPLEX Qty: 30 2RF Dose Instruction: Take 1 tablet by mouth once daily Rx Instructions: Take 1 tablet by mouth once daily loratadine 10 mg tablet 10 mg PO DAILY Patient Comments: TAKE 1 TABLET BY MOUTH ONCE DAILY FOR 90 DAYS Referrals Follow up/Referrals: Dilcia Coyle PA [Primary Care Provider] - See instructions Activity Restrictions/Add. Instructions Additional Instructions/Restrictions: Drink plenty of fluids. Take tylenol or ibuprofen for pain or fever. Take the medications as directed. Follow up with your regular doctor. GO TO THE ER FOR ANY WORSENING SYMPTOMS Clinical Impressions Clinical Impression: Pharyngitis Sinusitis Qualifiers: Sinusitis location: unspecified location Chronicity: unspecified Qualified Code(s): J32.9 - Chronic sinusitis, unspecified Instructions Patient Instructions: DI for Sinusitis Discharge ED Provider: Mookie Khan [facility] General Stated complaint: sore throat Mode of Arrival: Ambulatory Source of Information: Patient Limitations: No Limitations Time Seen by Provider: 09/09/23 08:23 Description of Symptoms (Recalled from Triage Doc. by RN): Pt's symptoms are sore throat, and bilateral ear pain. HEENT Symptoms (Recalled from RN notes): Yes Resp Symptoms (Recalled from RN notes): No Skin Symptoms (Recalled from RN notes): No MS Symptoms (Recalled from RN notes): No Functional Status (Recalled from RN notes): n/a History of Present Illness Provider Complaint: She states that for the past 2 days she has had sore throat, sinus congestion, and ear pressure. Related Data Home Medications Medication Instructions Recorded Confirmed loratadine 10 mg tablet 10 mg PO DAILY allergies 01/15/23 09/09/23 vits no.126-ferrous fum 1 tab PO DAILY 07/24/23 09/09/23 28 mg iron-folic acid 800 mcg tablet (Classic ) Previous Rx's Medication Instructions Recorded magnesium oxide 400 mg PO DAILY #30 caps 08/21/23 pantoprazole 40 mg tablet,delayed See Rx Instructions .Route 08/28/23 release .COMPLEX #30 tabs amoxicillin 400 mg/5 mL oral 500 mg (6.25 mL) PO TID 10 days 09/09/23 suspension #187.5 mL Allergies Allergy/AdvReac Type Severity Reaction Status Date / Time No Known Allergies Allergy Verified 09/09/23 08:21 Worker's Comp Is this a Worker's Comp case?: No [facility] Disclaimer: The information contained in this section may have been updated after the patient was seen, as this information can be updated by other users. Medical History (Updated 09/09/23 @ 08:50 by Mookie Khan APRN) Headache Seasonal allergies Nausea and vomiting during 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 History of placement of ear tubes Hx of wisdom tooth extraction Hx of cholecystectomy Family History Other No significant family history Social History Smoking Status: Never smoker second hand exposure: Yes alcohol intake: never substance use type: denies use current occupational status: other Travel in the last 8 weeks: None housing: house caffeine: No ROS Obtained: Yes All systems reviewed & no additional complaints except as documented Constitutional Constitutional: Reports chills and Denies fever(s) Eyes Eyes: Denies eye discharge ENT Ears, Nose, Mouth, and Throat: Reports as per HPI Cardiovascular Cardiovascular: Denies chest pain Respiratory Respiratory: Denies chest congestion and Reports cough Gastrointestinal Gastrointestingal: Reports nausea; Denies abdominal pain, constipation, cramping, diarrhea or vomiting Musculoskeletal Musculoskeletal: Denies arthralgias Integumentary/Breasts Skin/Breast: Denies rash Neurologic Neurologic: Denies paresthesias Physical Exam General General appearance: alert and in no apparent distress Eye Eye exam: Present normal appearance, PERRL and EOMI ENT ENT exam: Present mucous membranes moist and normal external ear exam Expanded ENT Exam External ear exam: Present normal external inspection TM/Canal exam: Bilateral TM: erythema and bulging Nose exam: Absent sinus tenderness Nasal speculum exam: Bilateral: normal Mouth exam: Present normal external inspection; Absent drooling Teeth exam: Present normal inspection Throat exam: Present tonsillar erythema and tonsillomegaly Neck Neck exam: Present normal inspection, full ROM and trachea midline; Absent tenderness, lymphadenopathy or thyromegaly Chest Chest inspection: Present normal inspection and symmetric chest wall rise; Absent tenderness or rash Respiratory Respiratory exam: Present normal lung sounds bilaterally; Absent respiratory distress, wheezes, stridor or accessory muscle use Cardiovascular Cardiovascular exam: Present regular rate, normal rhythm and normal heart sounds Abdominal Exam Abdominal exam: Present soft; Absent distention, tenderness, guarding, rebound or rigidity Extremities Exam Extremities exam: Present normal inspection, full ROM and normal capillary refill; Absent tenderness or calf tenderness Back Exam Back exam: Present normal inspection and full ROM; Absent tenderness Neurological Exam Neurological exam: Present alert and oriented X3 Psychiatric Psychiatric exam: Present normal affect and normal mood Skin Skin exam: Present warm, dry, intact and normal color Lymphatic Lymphatic Findings: no adenopathy Medical Decision Making Medical Records Medical records reviewed: No I reviewed the patient's medical records. Oswaldo Inquiry Pt receiving controlled substance: No Vital Signs: 09/09/23 08:10 Temperature 98.7 F Temperature Source Oral Pulse Rate [Right Radial] 95 H Respiratory Rate 18 Blood Pressure [Right Arm] 122/74 Blood Pressure Mean [Right Arm] 90 Blood Pressure Source [Right Arm] Automatic Cuff Blood Pressure Position [Right Arm] Sitting 02 Sat by Pulse Oximetry 97 Oxygen Delivery Method Room Air Lab Data Lab results reviewed: Yes I reviewed the patient's lab results.
[2023-09-09 08:31] LABS: UTC Strep Screen (Rapid) Negative (Negative)
[2023-09-09 09:04] VITALS: BP 122/74; PULSE 95; RESP 18; TEMP 37.1; O2SAT 97
== END 2023-09-09 09:03 | disposition home or self-care (01) ==
PROVIDERS: Emergency Provider Nurse Practitioner Family; PCP Physician Assistant
DX: J02.9 Acute pharyngitis, unspecified (principal); J01.90 Acute sinusitis, unspecified; H92.03 Otalgia, bilateral; R09.81 Nasal congestion
CPT/HCPCS: 87880; 99212; 99214; G0463

== ENCOUNTER 2023-09-26 20:15 | Outpatient (CLI) | payer OTHER, BC, SELFPAY ==
[2023-09-26 20:22] VITALS: BMI 25.3
--- NOTE | 2023-09-26 20:34 | ECG_ITS ---
APPROVED REPORT Exam: Resting ECG HR:105 bpm ECG Measurements Heart Rate 105 AXES KS 124 P 32 QRSd 85 QRS 17 QT 331 T 17 QTc 392 Conclusion SINUS TACHYCARDIA ABNORMAL RHYTHM ECG UNCONFIRMED REPORT Electronically signed by : Faheem Dove MD 09/30/2023 16:44:28
[2023-09-26 20:57] VITALS: BP 122/75; PULSE 107; RESP 20; TEMP 37.8; O2SAT 100; BMI 25.3
[2023-09-26 20:59] LABS: Microscopic, Urine URINE MICROSCOPIC (MICROSCOPIC)
--- NOTE | 2023-09-26 20:59 | EXP.MED.CON ---
Documented by User: Rusty Schmidt APRN 09/26/23 21:48 History of Present Illness *Admission Date: 09/26/23 *Reason for visit:: fever/ tachycardia *History of present illness: This is a 23 years old female, 24w6d. Admitted into OB services for observation of fever and tachycardia. Medicine was consulted. Patient concerning of chest pain and accelerated heart rate. Patient seen at bedside presented with febrile, sinus tachycardia on the monitor. Reports fever, sore throat, cough. Patient working at the [employer]. Of note patient has recently completed treatment of the cefdinir and clavulanate for diagnosis of sinusitis. Denies any other symptoms, including shortness of breath, no nausea and vomiting, no abdominal cramps or deep vaginal discharge, denying any urinary symptoms at this time. [facility] Disclaimer: The information contained in this section may have been updated after the patient was seen, as this information can be updated by other users. Medical History Headache Seasonal allergies Nausea and vomiting during 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 History of placement of ear tubes Hx of wisdom tooth extraction Hx of cholecystectomy Family History Other No significant family history Social History Smoking Status: Never smoker second hand exposure: Yes alcohol intake: never substance use type: denies use current occupational status: employed Travel in the last 8 weeks: None housing: house caffeine: No Review of Systems Review of Systems Review of systems:: pertinent systems reviewed and negative unless documented below Exam Data for Last 24 hours I & O for Last 24 hours: Intake & Output 09/23/23 09/24/23 09/25/23 09/26/23 23:59 23:59 23:59 23:59 Weight 64.864 kg Constitutional Constitutional: mild distress and cooperative *Routine HEENT Exam Head: Present normocephalic and atraumatic Eye: Present EOMI, PERRL and normal accommodation ENT: Present mucous membranes dry *Routine Neck Exam Neck: Present supple and full ROM; Absent lymphadenopathy Routine Chest/Breast/Axilla Exam Breast: Absent induration or erythema Axillae: Absent lymphadenopathy *Routine Respiratory Exam Respiratory: Present CTA bilaterally, normal respiratory effort, able to speak in complete sentences and symmetric chest movement; Absent respiratory distress *Routine Cardiovascular Exam Cardiovascular: Present RRR, Normal S1, Normal S2 and tachycardia *Routine Abdominal Exam Abdominal: Present soft *Routine Rectal Exam Patient deferred: visual exam *Routine Exam Patient deferred: external exam *Routine Extremities Exam Extremities: Present full ROM and pulses intact; Absent cyanosis, clubbing or edema *Routine Skin Exam Skin: Present intact, dry, pallor and warm *Routine Neurological Exam Neurological: Present alert, oriented X3, normal reflexes and moving all extremities Routine Psychiatric Exam Psychiatric: Present anxious Detailed ENT Exam Ear: Present canal erythema Oropharynx: Present malodorous breas and post pharyngeal erythema; Absent post pharyngeal edema or white patches Oral mucosa: Present dry Tonsil: bilateral: tonsillar erythema Meds Home Medications and Allergies Home Medications Medication Instructions Recorded Confirmed Type loratadine 10 mg tablet 10 mg PO DAILY allergies 01/15/23 09/19/23 History vits no.126-ferrous fum 1 tab PO DAILY 07/24/23 09/19/23 History 28 mg iron-folic acid 800 mcg tablet (Classic ) pantoprazole 40 mg tablet,delayed See Rx Instructions .Route 08/28/23 09/19/23 Rx release .COMPLEX #30 tabs New Prescriptions to Start Prescriptions: Allergies Allergy/AdvReac Type Severity Reaction Status Date / Time No Known Allergies Allergy Verified 09/19/23 16:06 Results Labs 09/26/23 20:45 Labs: Hb 12.1. All other labs normal. Assessment and Plan *Assessment and plan (1) Sinus tachycardia: Status: Acute Category: Medical Code(s): R00.0 - Tachycardia, unspecified (2) Pharyngitis: Status: Acute Qualifiers: Pharyngitis/tonsillitis etiology: unspecified etiology Qualified Code(s): J02.9 - Acute pharyngitis, unspecified Category: Medical Code(s): J02.9 - Acute pharyngitis, unspecified (3) Viral upper respiratory tract infection with cough: Status: Acute Category: Medical Code(s): J06.9 - Acute upper respiratory infection, unspecified (4) : Status: Acute Qualifiers: Weeks of gestation: 25 weeks Qualified Code(s): Z3A.25 - 25 weeks gestation of Category: Medical Code(s): Z34.90 - Encounter for supervision of normal , unspecified, unspecified trimester (5) Anemia during : Status: Acute Category: Medical Code(s): O99.019 - Anemia complicating , unspecified trimester Plan 23 years old female, 24w6d. Admitted into OB services for observation of fever and tachycardia. Medicine was consulted. Patient concerning of chest pain and accelerated heart rate. Patient seen at bedside presented with febrile, Sinus Tachycardia on the monitor. Patient seen and evaluated bedside. EKG was obtained concerning for sinus tach. No ST changes or ischemic change. Normal QRS. Patient presented with fever and cough. CBC is normal. Low hemoglobin. plan -Fever and sinus tachycardia, likely secondary to upper viral upper respiratory tract infection for pharyngitis: Anemia in 25 weeks CBC ordered obtained and reviewed EKG showed sinus tachycardia. No ST changes. No ischemia Tylenol as needed for temperature greater than 100 Guaifenesin as needed for cough *Hydrations of normal saline x 1 L respiratory panel ordered ordered. UA pending Patient completed 5-day treatment of cefdinir. Low concern for bacterial infection Supportive care Vitamins and with iron Rest of the care per primary team. No further medical intervention at this point. Thank you for involving in the patient care. Reconsult as needed EKG EKG EKG results cardiology: interpreted by Provider, sinus rhythm, normal QRS and normal ST/T EKG shows: tachycardia Documented by User: Mookie Cardenas MD 09/27/23 09:52 [employer] [facility] Medical History Headache Seasonal allergies Nausea and vomiting during 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 History of placement of ear tubes Hx of wisdom tooth extraction Hx of cholecystectomy Family History Other No significant family history Social History Smoking Status: Never smoker second hand exposure: Yes alcohol intake: never substance use type: denies use current occupational status: employed Travel in the last 8 weeks: None housing: house caffeine: No Meds Home Medications and Allergies Home Medications Medication Instructions Recorded Confirmed Type loratadine 10 mg tablet 10 mg PO DAILY allergies 01/15/23 09/19/23 History vits no.126-ferrous fum 1 tab PO DAILY 07/24/23 09/19/23 History 28 mg iron-folic acid 800 mcg tablet (Classic ) pantoprazole 40 mg tablet,delayed See Rx Instructions .Route 08/28/23 09/19/23 Rx release .COMPLEX #30 tabs New Prescriptions to Start Prescriptions: Allergies Allergy/AdvReac Type Severity Reaction Status Date / Time No Known Allergies Allergy Verified 09/19/23 16:06 Results Labs 09/26/23 20:45 Assessment and Plan *Assessment and plan (1) Sinus tachycardia: Status: Acute Category: Medical Code(s): R00.0 - Tachycardia, unspecified (2) Pharyngitis: Status: Acute Qualifiers: Pharyngitis/tonsillitis etiology: unspecified etiology Qualified Code(s): J02.9 - Acute pharyngitis, unspecified Category: Medical Code(s): J02.9 - Acute pharyngitis, unspecified (3) Viral upper respiratory tract infection with cough: Status: Acute Category: Medical Code(s): J06.9 - Acute upper respiratory infection, unspecified (4) : Status: Acute Qualifiers: Weeks of gestation: 25 weeks Qualified Code(s): Z3A.25 - 25 weeks gestation of Category: Medical Code(s): Z34.90 - Encounter for supervision of normal , unspecified, unspecified trimester (5) Anemia during : Status: Acute Category: Medical Code(s): O99.019 - Anemia complicating , unspecified trimester Plan 23 years old female, 24w6d. Admitted into OB services for observation of fever and tachycardia. Medicine was consulted. Patient concerning of chest pain and accelerated heart rate. Patient seen at bedside presented with febrile, Sinus Tachycardia on the monitor. Patient seen and evaluated bedside. EKG was obtained concerning for sinus tach. No ST changes or ischemic change. Normal QRS. Patient presented with fever and cough. CBC is normal. Low hemoglobin. plan -Fever and sinus tachycardia, likely secondary to upper viral upper respiratory tract infection for pharyngitis: Anemia in 25 weeks CBC ordered obtained and reviewed EKG showed sinus tachycardia. No ST changes. No ischemia Tylenol as needed for temperature greater than 100 Guaifenesin as needed for cough *Hydrations of normal saline x 1 L - respiratory panel ordered, positive for rhino/enterovirus. UA pending Patient completed 5-day treatment of cefdinir. Low concern for bacterial infection Supportive care Vitamins and with iron Rest of the care per primary team. No further medical intervention at this point. Thank you for involving in the patient care. Reconsult as needed Discussed case and recommendations with nurse practitioner. Agree with exam findings and care plan as documented
[2023-09-26 21:01] LABS: Basophils % 0.4 % (0.1-2.0); Eosinophils # 0.1 K/mm3 (0.0-0.4); Eosinophils % 0.7 % (0.1-12.0); Hematocrit 36.1 % (37.0-47.0); Hemoglobin 12.1 g/dL (12.2-16.2); Lymphocytes # 1.2 K/mm3 (0.7-4.5); Lymphocytes % 12.4 % (10-50); Mean Corpuscular HGB Conc 33.5 g/dL (31.8-35.4); Mean Corpuscular Hemoglobin 30.7 pg (27.0-31.2); Mean Corpuscular Volume 91.8 fl (81-99); Mean Platelet Volume 9.6 fl (7.4-10.4); Monocytes # 0.7 K/mm3 (0.1-1.0); Monocytes % 7.4 % (1.7-9.3); Neutrophils # 7.8 K/mm3 (1.8-7.8); Neutrophils % 79.2 % (37.0-80.0); Platelet Count 188 K/mm3 (142-424); Red Blood Count 3.94 M/mm3 (4.20-5.40); Red Cell Distribution Width 13.1 % (11.5-17.5); White Blood Count 9.8 K/mm3 (4.8-10.8)
[2023-09-26 21:11] LABS: Appearance,Urine CLEAR (Clear); Bilirubin,Urine Negative (Negative); Blood, Urine Negative (Negative); Color,Urine YELLOW (Yellow); Glucose,Urine (UA) Negative (Negative); Ketones,Urine Negative (Negative); Leukocyte Esterase,Urine Negative (Negative); Nitrate,Urine Negative (Negative); Protein,Urine Negative (Negative); Specific Gravity, Urine <= 1.005 (1.005-1.030); Urobilinogen,Urine 0.2 EU/dl (0.2)
[2023-09-26 21:25] LABS: Bacteria,Urine Trace /lpf
[2023-09-26] MEDS: ACETAMINOPHEN 325MG TAB 650 MG PO (21:26)
[2023-09-26] MEDS: LACTATED RINGERS 1000ML 1,000 ML 999 ML IV (21:30)
[2023-09-26 21:55] LABS: Adenovirus,PCR Not Detected (NotDetected); Bordetella Pertussis Not Detected (NotDetected); Chlamydophila Pneumoniae, PCR Not Detected (NotDetected); Coronavirus 19, PCR Not Detected (NotDetected); Coronavirus 229E Not Detected (NotDetected); Coronavirus NL63 Not Detected (NotDetected); Coronavirus OC43 Not Detected (NotDetected); Coronovirus HKU1,PCR Not Detected (NotDetected); Human Metapneumovirus Not Detected (NotDetected); Influenza A, PCR Not Detected (NotDetected); Influenza AH1, 2009 Not Detected (NotDetected); Influenza AH1, PCR Not Detected (NotDetected); Influenza AH3,PCR Not Detected (NotDetected); Influenza B, PCR Not Detected (NotDetected); Mycoplasma Pneumoniae, PCR Not Detected (NotDetected); Parainfluenza 1, PCR Not Detected (NotDetected); Parainfluenza 2, PCR Not Detected (NotDetected); Parainfluenza 3, PCR Not Detected (NotDetected); Parainfluenza 4, PCR Not Detected (NotDetected); Respiratory Syncytial Virus Not Detected (NotDetected)
[2023-09-26 23:13] LABS: Rhinovirus/Enterovirus Detected (NotDetected)
== END 2023-09-26 23:24 | disposition home or self-care (01) ==
LOC: OBOUT 20:17 → OB 20:17
PROVIDERS: Nurse Practitioner Family; PCP Physician Assistant; Visit Provider Obstetrics & Gynecology
DX: O99.512 Diseases of the respiratory system complicating pregnancy, second trimester (principal); R00.0 Tachycardia, unspecified; J02.9 Acute pharyngitis, unspecified; J06.9 Acute upper respiratory infection, unspecified; Z3A.25 25 weeks gestation of pregnancy; O99.012 Anemia complicating pregnancy, second trimester; D64.89 Other specified anemias; B97.89 Other viral agents as the cause of diseases classified elsewhere
CPT/HCPCS: 81001; 85025; 87581; 87632; 87635; 87798; 93005; G0463; J7120

== ENCOUNTER 2023-10-20 08:51 | Outpatient (CLI) | payer OTHER, BC, SELFPAY ==
[2023-10-20 09:35] LABS: Basophils % 0.3 % (0.1-2.0); Eosinophils % 0.4 % (0.1-12.0); Hematocrit 36.8 % (37.0-47.0); Hemoglobin 12.5 g/dL (12.2-16.2); Lymphocytes # 1.7 K/mm3 (0.7-4.5); Lymphocytes % 15.3 % (10-50); Mean Corpuscular Hemoglobin 30.3 pg (27.0-31.2); Mean Corpuscular Volume 89.1 fl (81-99); Mean Platelet Volume 8.9 fl (7.4-10.4); Monocytes # 0.7 K/mm3 (0.1-1.0); Monocytes % 6.2 % (1.7-9.3); Neutrophils # 8.8 K/mm3 (1.8-7.8); Neutrophils % 77.8 % (37.0-80.0); Platelet Count 214 K/mm3 (142-424); Red Blood Count 4.14 M/mm3 (4.20-5.40); Red Cell Distribution Width 13.1 % (11.5-17.5); White Blood Count 11.3 K/mm3 (4.8-10.8)
[2023-10-20 09:43] LABS: Glucose,Fasting 89 mg/dl (74-100)
[2023-10-20 10:46] LABS: Glucose 1 Hour 168 mg/dL (74-100)
== END 2023-10-20 23:59 | disposition home or self-care (01) ==
PROVIDERS: PCP Physician Assistant; Visit Provider Obstetrics & Gynecology
DX: O99.012 Anemia complicating pregnancy, second trimester (principal); Z3A.28 28 weeks gestation of pregnancy
CPT/HCPCS: 36415; 82951; 85025

== ENCOUNTER 2023-10-23 07:57 | Outpatient (CLI) | payer OTHER, BC, SELFPAY ==
[2023-10-23 10:05] LABS: Glucose,Fasting 90 mg/dl (74-100)
[2023-10-23 10:19] LABS: Glucose 1 Hour 122 mg/dL (74-100)
[2023-10-23 11:34] LABS: Glucose 2 Hour 120 mg/dL (74-100)
[2023-10-23 12:41] LABS: Glucose 3 Hour 102 mg/dL (74-100)
== END 2023-10-23 23:59 | disposition home or self-care (01) ==
LOC: LAB 07:58
PROVIDERS: PCP Physician Assistant; Visit Provider Obstetrics & Gynecology
DX: Z34.90 Encounter for supervision of normal pregnancy, unspecified, unspecified trimester (principal)
CPT/HCPCS: 36415; 82951

== ENCOUNTER 2023-11-16 12:43 | Outpatient (CLI) | payer OTHER, BC, SELFPAY ==
--- NOTE | 2023-11-16 12:43 | US_ITS ---
PROCEDURE: US OB BIOPHYSICAL PROFILE CLINICAL INDICATION: SGA, OB BPP/Growth with SD Ratio and ALEX COMPARISON: US US OB /MATERNAL DETAIL from 08/21/2023 US US OB FOLLOW UP from 09/08/2023 FINDINGS: Transabdominal sonographic images of the uterus were obtained. From her established due date she is 32weeks 5days. The following parameters are obtained: Viable Fetus in the cephalic presentation with an anterior placenta grade 2. Average ultrasound age is 33weeks 5days Estimated weight 2,154g, 4 lb 12 oz. The cervix measures 2.68 cm. Measurements: heart Rate = 138bpm BPD = 34weeks 3days, 85 percentile HC = 34weeks 4days, 61 percentile AC = 34weeks 0 days, 82 percentile FL = 31weeks 3days, 9 percentile HC/AC is 1.03 FL/BPD is 0.71 FL/AC is 0.2 58 percentile Amniotic fluid index: 8.23cm, MVP 5.60 cm. Qualitative AFV:2 Breathing movements: 2 Gross Body Movements: 2 Tone: 2 Biophysical profile score: 8 Doppler evaluation of the umbilical artery: SD ratio: 2.56 Resistive index: 0.61 No obvious anomalies evident.Kidneys, profile, bladder, stomach, four-chamber heart, three-vessel cord appear normal. IMPRESSION: 1. Viable fetus in the cephalic presentation with an anterior placenta grade 2. 2. Fluid is within normal limits with an amniotic fluid index of 8.23 cm, MVP 5.60 cm. 3. Biophysical profile is 8/8 with good breathing movement and movement seen. 4. SD ratio is normal at 2.56. 5. There has been good interval growth with the fetus currently 58th percentile. 6. Limited anatomical scan appears normal. Dictated by: Richie Baker MD 11/17/2023 08:46 Richie Baker MD in [place] 11/17/2023 08:46
== END 2023-11-16 23:59 | disposition home or self-care (01) ==
LOC: RAD 12:43
PROVIDERS: PCP Physician Assistant; Visit Provider Obstetrics & Gynecology
DX: O36.5930 Maternal care for other known or suspected poor fetal growth, third trimester, not applicable or unspecified (principal); Z3A.32 32 weeks gestation of pregnancy
CPT/HCPCS: 76816; 76819; 76820

== ENCOUNTER 2023-12-02 10:22 | Outpatient (CLI) | payer OTHER, BC, SELFPAY ==
[2023-12-02 10:50] LABS: Basophils # 0.1 K/mm3 (0-0.2); Basophils % 0.7 % (0.1-2.0); Eosinophils % 0.3 % (0.1-12.0); Hematocrit 38.5 % (37.0-47.0); Hemoglobin 12.4 g/dL (12.2-16.2); Lymphocytes # 1.6 K/mm3 (0.7-4.5); Lymphocytes % 18.5 % (10-50); Mean Corpuscular HGB Conc 32.2 g/dL (31.8-35.4); Mean Corpuscular Hemoglobin 28.5 pg (27.0-31.2); Mean Corpuscular Volume 88.5 fl (81-99); Mean Platelet Volume 10.5 fl (7.4-10.4); Monocytes # 0.6 K/mm3 (0.1-1.0); Monocytes % 6.9 % (1.7-9.3); Neutrophils # 6.5 K/mm3 (1.8-7.8); Neutrophils % 73.5 % (37.0-80.0); Platelet Count 236 K/mm3 (142-424); Red Blood Count 4.35 M/mm3 (4.20-5.40); Red Cell Distribution Width 13.6 % (11.5-17.5); White Blood Count 8.8 K/mm3 (4.8-10.8)
[2023-12-02 10:54] LABS: Chloride 112 mmol/L (98-107); Sodium 138 mmol/L (136-145)
[2023-12-02 10:57] LABS: Blood Urea Nitrogen 4 mg/dl (7-17); Estimated Glomerular Filt Rate 153 ml/min (>60); GFR (African American) 185 ML/MIN (>60)
[2023-12-02 10:58] LABS: Alanine Aminotransferase 18 U/L (12-78); Aspartate Amino Transferase 29 U/L (14-36); Calcium 8.5 mg/dl (8.4-10.2); Carbon Dioxide 20 mmol/L (22.0-30.0); Glucose 85 mg/dl (74-100)
[2023-12-02 11:02] LABS: Activated Partial Thrombo Time 30.8 seconds (22.8-30.6); Fibrinogen 499 mg/dL (229.9-363.5); INR 0.88 (0.9-1.1)
[2023-12-02 11:08] LABS: Total Protein 24 Hour,Urine 143 mg/24 hr (40-90); Total Volume,Urine 1425 mL (600-1600)
[2023-12-02 11:28] LABS: Uric Acid 4.2 mg/dl (2.5-6.2)
== END 2023-12-02 23:59 | disposition home or self-care (01) ==
PROVIDERS: PCP Physician Assistant; Visit Provider Obstetrics & Gynecology
DX: O13.3 Gestational [pregnancy-induced] hypertension without significant proteinuria, third trimester (principal); Z3A.34 34 weeks gestation of pregnancy
CPT/HCPCS: 36415; 80048; 84155; 84450; 84460; 84550; 85025; 85384; 85610; 85730

== ENCOUNTER 2023-12-06 07:32 | Outpatient (CLI) | payer OTHER, BC, SELFPAY ==
[2023-12-06 07:44] VITALS: BMI 59.7
[2023-12-06 07:53] VITALS: BP 143/90; PULSE 88; RESP 17; TEMP 37.2; O2SAT 100; BMI 27.1
[2023-12-06] MEDS: LACTATED RINGERS 1000ML 1,000 ML 999 ML IV ×2 (08:18→10:14)
[2023-12-06] MEDS: LABETALOL 100MG TABLET 200 MG PO (08:18)
[2023-12-06 08:34] LABS: Basophils # 0.1 K/mm3 (0-0.2); Basophils % 0.7 % (0.1-2.0); Eosinophils # 0.1 K/mm3 (0.0-0.4); Eosinophils % 0.6 % (0.1-12.0); Hematocrit 43.4 % (37.0-47.0); Hemoglobin 13.9 g/dL (12.2-16.2); Lymphocytes # 1.5 K/mm3 (0.7-4.5); Lymphocytes % 19.4 % (10-50); Mean Corpuscular Hemoglobin 28.3 pg (27.0-31.2); Mean Corpuscular Volume 88.3 fl (81-99); Mean Platelet Volume 10.8 fl (7.4-10.4); Monocytes # 0.5 K/mm3 (0.1-1.0); Monocytes % 5.9 % (1.7-9.3); Neutrophils # 5.6 K/mm3 (1.8-7.8); Neutrophils % 73.4 % (37.0-80.0); Platelet Count 226 K/mm3 (142-424); Red Blood Count 4.92 M/mm3 (4.20-5.40); Red Cell Distribution Width 13.7 % (11.5-17.5); White Blood Count 7.6 K/mm3 (4.8-10.8)
[2023-12-06 08:39] LABS: Fetal Membrane Rupture (Rapid) Negative (Negative)
[2023-12-06 08:40] LABS: Alanine Aminotransferase 20 U/L (12-78); Albumin Level 3.7 g/dl (3.5-5.0); Albumin/Globulin Ratio 1.1 (1.1-1.8); Alkaline Phosphatase 280 U/L (38-126); Anion Gap 8.6 mEq/L (5-15); Aspartate Amino Transferase 30 U/L (14-36); Bilirubin,Total 0.5 mg/dl (0.2-1.3); Blood Urea Nitrogen 2 mg/dl (7-17); Carbon Dioxide 22 mmol/L (22.0-30.0); Chloride 112 mmol/L (98-107); Creatinine Clearance Estimated 145 mL/min (50-200); Estimated Glomerular Filt Rate 153 ml/min (>60); GFR (African American) 185 ML/MIN (>60); Globulin 3.3 g/dL (1.3-3.2); Glucose 89 mg/dl (74-100); Potassium 3.6 mmoL/L (3.5-5.1); Sodium 139 mmol/L (136-145); Uric Acid 3.9 mg/dl (2.5-6.2)
[2023-12-06 08:48] LABS: Activated Partial Thrombo Time 31.6 seconds (22.8-30.6); Fibrinogen 480 mg/dL (229.9-363.5); INR 0.86 (0.9-1.1); Prothrombin Time 9.8 seconds (10.1-12.5)
[2023-12-06] MEDS: BUTALB/ACETAMINOPHEN/CAFFEINE 50MG/325MG/40MG TAB 1 EACH PO (09:02)
[2023-12-06 09:13] LABS: Microscopic, Urine URINE MICROSCOPIC (MICROSCOPIC)
[2023-12-06 09:16] LABS: Appearance,Urine CLEAR (Clear); Bilirubin,Urine Negative (Negative); Blood, Urine Negative (Negative); Color,Urine YELLOW (Yellow); Glucose,Urine (UA) Negative (Negative); Ketones,Urine Negative (Negative); Leukocyte Esterase,Urine 1+ (Negative); Nitrate,Urine Negative (Negative); Protein,Urine Negative (Negative); Specific Gravity, Urine <= 1.005 (1.005-1.030); Urobilinogen,Urine 0.2 EU/dl (0.2)
[2023-12-06 09:24] LABS: Creatinine,Urine Random 38 mg/dL (Not Estab.)
[2023-12-06 09:26] LABS: Bacteria,Urine 2+ /lpf
[2023-12-06 09:28] LABS: Amphetamine/Metha Screen,Urine Negative ng/ml (<1000)
[2023-12-06 09:29] LABS: Barbiturates Screen,Urine Negative ng/ml (<200); Benzodiazepines Screen,Urine Negative ng/ml (<200)
[2023-12-06 09:30] LABS: Cannabinoid Screen,Urine Negative ng/ml (<50); Cocaine Screen,Urine Negative ng/ml (<300)
[2023-12-06 09:31] LABS: Methadone Screen,Urine Negative ng/ml (<300)
[2023-12-06 09:32] LABS: Opiate Screen,Urine Negative ng/ml (<300); Phencyclidine Screen,Urine Negative ng/ml (<25)
[2023-12-06] MEDS: hydrOXYzine pamoate 25MG CAPSULE 25 MG PO (10:22)
[2023-12-06] MEDS: PROCHLORPERAZINE 10MG/2ML VIAL 10 MG IV (10:23)
[2023-12-06] MEDS: DEXAMETHASONE 4MG/ML 1ML VIAL 4 MG IV (10:27)
[2023-12-06] MEDS: ONDANSETRON 4MG/2ML VIAL 4 MG IV (10:36)
== END 2023-12-06 11:42 | disposition home or self-care (01) ==
LOC: OBOUT 07:34 → OB 07:36
PROVIDERS: PCP Physician Assistant; Visit Provider Obstetrics & Gynecology
DX: O42.913 Preterm premature rupture of membranes, unspecified as to length of time between rupture and onset of labor, third trimester (principal); Z3A.35 35 weeks gestation of pregnancy
CPT/HCPCS: 80053; 80307; 81001; 82570; 84112; 84156; 84550; 85025; 85384; 85610; 85730; 87086; 87088; G0463; J0780; J1100; J2405; J7120

== ENCOUNTER 2023-12-14 16:57 | Outpatient (CLI) | payer OTHER, BC, SELFPAY | END 2023-12-14 23:59 | disposition home or self-care (01) | LOC: LAB.DROPOF 16:57 | PROVIDERS: PCP Obstetrics & Gynecology; Visit Provider Obstetrics & Gynecology | DX: Z34.90 Encounter for supervision of normal pregnancy, unspecified, unspecified trimester (principal) | CPT/HCPCS: 86403 ==

== ENCOUNTER 2024-05-27 08:07 | Emergency (ER) | payer BC, OTHER, SELFPAY ==
--- NOTE | 2024-05-27 08:26 | EXP.UTC ---
Discharge Plan Disposition Patient Disposition: Home, Self-Care Condition: Good Prescriptions Prescriptions: New ondansetron 4 mg Tablet,Disintegrating 4 mg PO Q8H PRN (Reason: Nausea) Qty: 12 0RF No Action Lo Loestrin Fe 1 mg-10 mcg (24)/10 mcg (2) tablet 1 tab PO DAILY Qty: 84 4RF labetalol 200 mg tablet 200 mg PO Q8H Qty: 90 1RF sertraline 25 mg tablet See Rx Instructions .ROUTE .COMPLEX Qty: 30 6RF Dose Instruction: Take 1 tablet by mouth once daily Rx Instructions: Take 1 tablet by mouth once daily azithromycin [Zithromax Z-Micheal] 250 mg tablet See Rx Instructions PO .COMPLEX Qty: 6 1RF Rx Instructions: For 250 mg dose pack: take 500 mg today (day 1), then 250 mg for 4 days (days 2-5) PO loratadine 10 mg tablet 10 mg PO DAILY Patient Comments: TAKE 1 TABLET BY MOUTH ONCE DAILY FOR 90 DAYS Referrals Follow up/Referrals: Dilcia Coyle PA [Primary Care Provider] - See instructions Activity Restrictions/Add. Instructions Additional Instructions/Restrictions: Drink plenty of fluids. Take tylenol or ibuprofen for pain or fever. Take the medications as directed. Follow up with your regular doctor. GO TO THE ER FOR ANY WORSENING SYMPTOMS Clinical Impressions Clinical Impression: RSV infection Stand Alone Forms Stand Alone Forms: Work/School Release Instructions Patient Instructions: Viral Gastroenteritis, DI for Viral Gastroenteritis -- Adult, DI for Viral Syndrome, Ondansetron Print Language Print Language: Dominican Discharge ED Provider: Mookie Khan [facility] General Stated complaint: vomiting, diarrhea, weakness Time Seen by Provider: 05/27/24 08:21 History of Present Illness Provider Complaint: She states that since yesterday she has had n/v/d, body aches and chills. Her has the same symptoms that began at around the same time. Related Data Home Medications ?Medication ?Instructions ?Recorded ?Confirmed loratadine 10 mg tablet 10 mg PO DAILY 01/15/23 02/05/24 Previous Rx's ?Medication ?Instructions ?Recorded labetalol 200 mg tablet 200 mg PO Q8H #90 tabs 01/01/24 norethindrone 1 mg-ethinyl 1 tab PO DAILY #84 tabs 02/05/24 estradiol 10 mcg (24)-iron 10 mcg(2) tablet (Lo Loestrin Fe) sertraline 25 mg tablet See Rx Instructions .Route 04/11/24 .COMPLEX #30 tabs azithromycin 250 mg tablet See Rx Instructions PO .COMPLEX #6 04/15/24 (Zithromax Z-Micheal) tabs ondansetron 4 mg disintegrating 4 mg PO Q8H PRN Nausea #12 tabs 05/27/24 tablet Allergies Allergy/AdvReac Type Severity Reaction Status Date / Time No Known Allergies Allergy Verified 05/27/24 09:19 [facility] Disclaimer: The information contained in this section may have been updated after the patient was seen, as this information can be updated by other users. Medical History Sinus tachycardia Preeclampsia in period anxiety Status post normal vaginal delivery Gestational hypertension severe range BP Headache Seasonal allergies 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 History of placement of ear tubes Hx of wisdom tooth extraction Hx of cholecystectomy Family History Other No significant family history Social History Smoking Status: Never smoker second hand exposure: Yes alcohol intake: never substance use type: denies use current occupational status: employed Travel in the last 8 weeks: None housing: house caffeine: No Have you lived/traveled outside US in past 30 days?: No Contact w/someone who lives/traveled outside US past 30 days?: No Exposure to someone with infectious disease in past 14 days?: No Do you have a fever (greater than 100.4 F or 38 C)?: No Have you tested positive for COVID-19: No Exposed to someone with COVID-19 in past 14 days?: No Do you have a sore throat?: No Do you have a cough?: No Do you have any weakness?: Yes Do you have any diarrhea?: Yes Are you experiencing any unusual bleeding?: No Do you have any muscle aches/pain?: No Do you have any abdominal pain?: No Are you experiencing loss of taste or smell?: No ROS Obtained: Yes All systems reviewed & no additional complaints except as documented Constitutional Constitutional: Reports chills and Reports fever(s) Eyes Eyes: Denies eye discharge ENT Ears, Nose, Mouth, and Throat: Reports as per HPI Cardiovascular Cardiovascular: Denies chest pain Respiratory Respiratory: Denies chest congestion and Reports cough Gastrointestinal Gastrointestingal: Reports nausea; Denies abdominal pain, constipation, cramping, diarrhea or vomiting Musculoskeletal Musculoskeletal: Denies arthralgias Integumentary/Breasts Skin/Breast: Denies rash Neurologic Neurologic: Denies paresthesias Physical Exam General General appearance: alert and in no apparent distress Head Head exam: atraumatic, normocephalic and normal inspection Eye Eye exam: Present normal appearance, PERRL and EOMI ENT ENT exam: Present normal exam, normal oropharynx, mucous membranes moist, TM's normal bilaterally and normal external ear exam Neck Neck exam: Present normal inspection, full ROM and trachea midline; Absent meningismus or lymphadenopathy Chest Chest inspection: Present normal inspection and symmetric chest wall rise; Absent tenderness Respiratory Respiratory exam: Present normal lung sounds bilaterally; Absent respiratory distress Cardiovascular Cardiovascular exam: Present regular rate and normal rhythm; Absent JVD Abdominal Exam Abdominal exam: Present soft and normal bowel sounds; Absent distention, tenderness or guarding Extremities Exam Extremities exam: Present normal inspection, full ROM and normal capillary refill; Absent calf tenderness Back Exam Back exam: Present normal inspection; Absent tenderness Neurological Exam Neurological exam: Present alert and oriented X3 Psychiatric Psychiatric exam: Present normal affect and normal mood Skin Skin exam: Present warm, dry, intact and normal color Lymphatic Lymphatic Findings: no adenopathy Medical Decision Making Medical Records Medical records reviewed: No I reviewed the patient's medical records. Screening: Per USPSTF and CDC recommendations, given the prevalence of disease in our region, it is our hospital?s policy to screen for HIV and viral Hepatitis for all patients aged 18 and over and those with ongoing risk factors. Oswaldo Inquiry Pt receiving controlled substance: No Lab Data Lab results reviewed: Yes I reviewed the patient's lab results.
[2024-05-27 08:37] VITALS: BP 117/78; PULSE 58; RESP 18; TEMP 37; O2SAT 100; BMI 22.1
[2024-05-27 09:09] LABS: Coronavirus 19, PCR Not Detected (NotDetected); Human Rhinovirus Not Detected (NotDetected); Influenza A, PCR Not Detected (NotDetected); Influenza B, PCR Not Detected (NotDetected)
[2024-05-27 09:40] VITALS: BP 115/78; PULSE 61; RESP 17; TEMP 36.7; O2SAT 98
[2024-05-27 11:10] LABS: Respiratory Syncytial Virus Detected (NotDetected)
== END 2024-05-27 09:45 | disposition home or self-care (01) ==
PROVIDERS: Emergency Provider Nurse Practitioner Family; PCP Physician Assistant
DX: B33.8 Other specified viral diseases (principal)
CPT/HCPCS: 87631; 99213; G0381

== ENCOUNTER 2024-07-24 15:44 | Outpatient (CLI) | payer BC, OTHER, SELFPAY ==
--- NOTE | 2024-07-24 15:49 | XR_ITS ---
PROCEDURE INFORMATION: Exam: XR Right Knee Exam date and time: 07/24/2024 3:52 PM Age: 24 years old Clinical indication: Pain; Knee; Right; Additional info: Pain in joint, knee right TECHNIQUE: Imaging protocol: Radiologic exam of the right knee. Views: 4 or more views. COMPARISON: No relevant prior studies available. FINDINGS: Bones/joints: No acute fracture or dislocation. The joint spaces are preserved. Normal bone mineralization. Soft tissues: No soft tissue swelling or effusion. IMPRESSION: No acute findings.
--- NOTE | 2024-07-24 15:49 | XR_ITS ---
PROCEDURE INFORMATION: Exam: XR Left Knee Exam date and time: 07/24/2024 3:52 PM Age: 24 years old Clinical indication: Pain; Knee; Bilateral; Additional info: Left knee pain TECHNIQUE: Imaging protocol: Radiologic exam of the left knee. Views: 4 or more views. COMPARISON: No relevant prior studies available. FINDINGS: Bones/joints: No acute fracture or dislocation. The joint spaces are preserved. Normal bone mineralization. Soft tissues: No soft tissue swelling or effusion. IMPRESSION: No acute findings.
== END 2024-07-24 23:59 | disposition home or self-care (01) ==
LOC: RAD 15:45
PROVIDERS: PCP Physician Assistant; Visit Provider Family Medicine
DX: M25.562 Pain in left knee (principal); M25.561 Pain in right knee
CPT/HCPCS: 73564

== ENCOUNTER 2024-09-26 13:04 | Outpatient (CLI) | payer BC, OTHER, SELFPAY ==
--- NOTE | 2024-09-26 13:00 | US_ITS ---
PROCEDURE: US TRANSVAGINAL CLINICAL INDICATION: heavy blding, pelvic pain, abnormal menses COMPARISON: No exams were available for comparison FINDINGS: Transvaginal sonographic images of the pelvis were obtained. UTERUS: 8.1cm x 4.8 cmx 3.6 cm anteverted with a combined endometrial thickness of 5.7mm. LEFT OVARY: 3.3cmx2.8 cmx1.5cm with a volume of 7.1ml. There are multiple small peripheral follicles. RIGHT OVARY: 3.1cmx 2.7 cm x3.0cm with a volume of 12.8ml. There is a dominant follicle measuring 2.5 cm x 1.9 cm x 1.2 cm. Both ovaries are seen and appear normal. Doppler flow to both ovaries are seen. There is a small amount of fluid in the cul-de-sac. IMPRESSION: 1. Anteverted uterus normal in shape and size. The endometrium is thin measuring 5.7 mm. 2. Both ovaries are seen and appear normal. The left ovary has multiple small follicles. The right ovary has a dominant cyst measuring 2.5 cm. 3. There is a small amount of fluid in the cul-de-sac. Dictated by: Richie Baker MD 09/26/2024 15:39 Richie Baker MD in [place] 09/26/2024 15:39
== END 2024-09-26 23:59 | disposition home or self-care (01) ==
LOC: RAD 13:05
PROVIDERS: PCP Physician Assistant; Visit Provider Obstetrics & Gynecology
DX: E28.2 Polycystic ovarian syndrome (principal); N85.8 Other specified noninflammatory disorders of uterus
CPT/HCPCS: 76830

== ENCOUNTER 2025-01-14 19:35 | Outpatient (CLI) | payer BC, OTHER, SELFPAY | END 2025-01-14 23:59 | disposition home or self-care (01) | LOC: LAB.DROPOF 01-15 09:01 | PROVIDERS: PCP Nurse Practitioner; Visit Provider Nurse Practitioner | DX: J02.9 Acute pharyngitis, unspecified (principal) ==

== ENCOUNTER 2025-04-22 17:04 | Outpatient (CLI) | payer BC, OTHER, SELFPAY ==
--- OUTSIDE RECORDS SUMMARY | 2024-03-06 10:15 | XMS_ITS ---
Author Organization [facility] Address [address] [place], [place] [id number] Care Team Providers Care Rental Sales Representative Name Role Phone Beka Justin Primary Care Provider [phone] Dilcia Coyle Unavailable [phone] Allergies No Known Allergies Results Component Value Reference Range Notes Influenza Screen (in house) Reviewed date:03/06/2024 04:13:20 PM Interpretation: Performing Lab: Notes/Report: results Neg Rapid Strep- Inhouse Reviewed date:03/06/2024 04:13:27 PM Interpretation: Performing Lab: Notes/Report: strep test Neg CBC Fingerstick (in house) Reviewed date:03/06/2024 04:13:35 PM Interpretation: Performing Lab: Notes/Report: wbc 7.3 3.5 - 10 lym 29.0% 15 - 50 mid 7.3% 2 - 15 gran 63.7% 35 - 80 rbc 5.17 3.5 - 5.5 hgb 14.4 11.5 - 16.5 hct 43.4 35 - 55 mcv 83.9 75 - 100 mch 28.0 25 - 35 mchc 33.3 31 - 38 plat 234 100 - 400 Covid test (in house) Reviewed date:03/06/2024 04:13:13 PM Interpretation: Performing Lab: Notes/Report: Result: Neg REASON FOR VISIT possible strep Medications Medication SIG (Take, Route, Fr equency, Duration) Notes Start Date End Date Status Lisinopril 5 MG 1 tablet Orally Once a day 024 Active Zoloft 25 MG 1 tablet Orally Once a day; Duration: 30 day(s) Active Loratadine 10 MG 1 tab(s) orally once a day; Duration: 90 days 02/10/2022 Active Norethindrone 0.35 MG 1 tablet Orally On ce a day; Duration: 28 day(s) Active Vital Signs Blood pressure systolic 102 mm Hg 03/06/20 24 Blood pressure diastolic 70 mm Hg 024 Heart Rate 87 /min 03/06/2024 Height 61.75 in 03/06/2024 Weight 126.0 lbs 03/06/2024 BMI 23.23 kg/m2 03/06/2024 Encounters Encounter Location Date Provider Diagnosis [facility] [address] [place] [id number] 03/06/2024 Dilcia Coyle Sore throat J02. 9 Assessments Encounter Date Diagnosis (ICD Code) Assessment Notes Treatment Notes Treatment Clinical Notes Section Notes 03/06/2024 Sore throat (ICD-10 - J02.9) fluids, rest, supportive measures for fever/symptom relief Plan Of Treatment Treatment Notes Assessment Notes Sore throat fluids, rest, suppor tive measures for fever/symptom relief Next Appt Details Follow Up: prn, Reason: Provider Name:Justin Sabillon ry, 05/14/2025 04:15:00 PM, [address] [facility], [address], [place], [id number], Provider Name:Dilcia Kirkland y, 09/25/2025 09:30:00 AM, [address] [facility], [address], [place], [id number], Progress Notes * Arpita WISEMANDOB: 0 (25 yo F)Acc No.[id number]:03/06/2024 Progress Notes Patient: Arpita QUACH Provider: LAURENT Stewart :2000 A ge:24 Y S ex:Female Date:03/06/2024 Address:[address] [place] [address], [place], [phone] Pcp:Justin Ireland Subjective: * Chief Complaints: * 1 . Possible strep. * HPI: E NT/respiratory: The patient is here today with c/o sore throat since last night. Pt denies any fever. 24 year old female presents with c/o sore throat. c/o post nasal drainage. Denies : cough. D enies : Fever. * ROS: D ERMATOLOGY: no R catalino. n o H vitor. G ASTROENTEROLOGY: no N ausea. n o V omiting. n o D iarrhea.? U ROLOGY: no D ifficulty urinating. n o B lood in urine. * Medical History: M edical History Verified. * 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: B ilateral Ear Tubes , Cholecystectomy 06/20/2018. * Family History: F ather: alive. M other: alive. S iblings: alive 8 yrs. P aternal Grand Father: diagnosed with Diabetes. M aternal Grand Father: diagnosed with Diabetes. M aternal Grand Mother: diagnosed with Hypertension, Cancer. 1 brother(s) - healthy. . Grandmother - Breast Cancer. * Social History: C URRENT TOBACCO USE S moking Status: P atient does NOT smoke. C affeine: yes, frequency:. Marital Status: Single. Sexually active: yes. Travel ouside [place]: no. * Medications: T aking Norethindrone 0.35 MG Tablet 1 tablet Orally Once a day , Taking Zoloft 25 MG Tablet 1 tablet Orally Once a day , Taking Loratadine 10 MG Tablet 1 tab(s) orally once a day , Taking Lisinopril 5 MG Tablet 1 tablet Orally Once a day , Medication List reviewed and reconciled with the patient * Allergies: N .K.D.A. Objective: * Vitals: W t:126.0, Temp:98.2, BP:102/70, HR:87, Nurse:TAISHA, Ht: 61.75, BMI:23.23. * Examination: E NT/Respiratory: General Appearance: N AD. E ars: a uditory canals normal bilaterally, TM's WNL. N ose : n ormal, no lesions, nares patent. S inuses : non tender bilaterally. O ral cavity : erythema without exudate on pharynx, PND present. Neck : n o cervical lymphadenopathy. H eart : R RR, normal S1 S2, no murmurs. L ungs: c lear to auscultation bilaterally. Assessment: * Assessment: 1. S ore throat - J02.9 (Primary) Plan: * Treatment: Value Reference Range r esults Neg * Iona Mcclendon 03/06/2024 3:41:4 2 PM > , Provider reviewed results while patient in office.Dilcia Coyle 03/06/2024 4:13:17 PM > ?LAB: Rapid Strep- Inhouse (Collection Date & Time - 03/06/2024)* Value Reference Range s trep test Neg * Sybil Wilkins 03/06/2024 3: 32:54 PM > , Provider reviewed results while patient in office.Dilcia Coyle 03/06/2024 4:13:25 PM > ?LAB: CBC Fingerstick (in house) (Collection Date & Time - 03/06/2024)* Value Reference Range w bc 7.3 3.5 - 10 * l ym 29.0% 15 - 50 * m id 7.3% 2 - 15 * g ran 63.7% 35 - 80 * r bc 5.17 3.5 - 5.5 * h gb 14.4 11.5 - 16.5 * h ct 43.4 35 - 55 * m cv 83.9 75 - 100 * m ch 28.0 25 - 35 * m chc 33.3 31 - 38 * p lat 234 100 - 400 * Sybil Wilkins 03/06/2024 3: 33:35 PM > , Provider reviewed results while patient in office.Dilcia Coyle 03/06/2024 4:13:32 PM > ?LAB: Covid test (in house) (Collection Date & Time - 03/06/2024)* Value Reference Range R esult: Neg * Iona Mcclendon 03/06/2024 3:42:1 7 PM > , Provider reviewed results while patient in office.Dilcia Coyle 03/06/2024 4:13:10 PM > Notes: fluids, rest, supportive measures for fever/symptom relief?? * Procedure Codes: 3 6416 CAPILLARY BLOOD DRAW, 24768 CBC WITH AUTO DIFF, 89853 STREP A ASSAY W/OPTIC, Modifiers: QW , 08546 Flu Test- Nasal Swab, Modifiers: QW , 10539 COVID TEST IN HOUSE, Modifiers: QW * Follow Up: p rn * Images: Billing Information: * Visit Code: 60402 Office Visit, Est Pt., Level 3. * Procedure Codes: 90893 CAPILLARY BLOOD DRAW. 51683 CBC WITH AUTO DIFF. 52740 STREP A ASSAY W/OPTIC. Modifiers: QW 13134 Flu Test- Nasal Swab. Modifiers: QW 49113 COVID TEST IN HOUSE. Modifiers: QW * Electronic signature of LAURENT Duke on 04/23/2025 at 10:14 AM EST Sign off status: Pending * Provider: LAURENT Stewart Date: 05/06/2023 Generated for Poonam maria/Loren/Darian on: 10:14 AM EST History and Physical Notes * HPI (History of Present Illness) Category Sub-Category Detail Notes Category Not es ENT/respiratory sore throat cough Fever post nasal drainage Examination Category Sub-Category Detail Notes Category Not es ENT/Respiratory Oral cavity : erythema without exudate on pharynx, PND present Sinuses : non tender bilateral ly Ears: auditory canals norm al bilaterally, TM's WNL Neck : no cervical lymphade nopathy Heart : RRR, normal S1 S2, n o murmurs Lungs: clear to auscultatio n bilaterally General Appearance: NAD Nose : normal, no lesions, nares patent
--- OUTSIDE RECORDS SUMMARY | 2024-07-10 10:30 | XMS_ITS ---
Author Organization [facility] Address [address] [place] [id number] Care Team Providers Care Health Program Analyst Name Role Phone Beka Justin Primary Care Provider [phone] Dilcia Coyle Unavailable [phone] Allergies No Known Allergies REASON FOR VISIT discuss medication Medications Medication SIG (Take, Route, Fr equency, Duration) Notes Start Date End Date Status Norethindrone 0.35 MG 1 tablet Orally On ce a day; Duration: 28 day(s) Active Loratadine 10 MG 1 tab(s) orally once a day; Duration: 90 days 02/10/2022 Active Lisinopril 5 MG 1 tablet Orally Once a day 024 Active Zoloft 50 MG 1 tablet Orally Once a day; Duration: 30 day(s) 07/10/2024 Active Problems Problem Type SNOMED Code ICD Code Onset Dates Problem Status W/U Status Risk Notes Problem Anxiety (80266858) Anxiety (F41.9) Active confirmed Vital Signs Blood pressure systolic 110 mm Hg 07/11/19 25 Blood pressure diastolic 70 mm Hg 025 Heart Rate 78 /min 07/10/2024 Height 61.75 in 07/10/2024 Weight 127.4 lbs 07/10/2024 BMI 23.49 kg/m2 07/10/2024 Encounters Encounter Location Date Provider Diagnosis [facility] [address] [place] [id number] 07/10/2024 Dilcia Coyle Anxiety F41.9 and Hypotension due to medication I95.2 Assessments Encounter Date Diagnosis (ICD Code) Assessment Notes Treatment Notes Treatment Clinical Notes Section Notes 07/10/2024 Anxiety (ICD-10 - F41.9) Will increase zoloft dose and f/u in 1 month. 07/10/2024 Hypotension due to medication (ICD-10 - I95.2) Will stop the lisinopril and monitor BP bid. Will f/u in 1 month. Plan Of Treatment Medication Medication Name Sig Start Date Stop Date Notes Zoloft 50 MG 1 tablet Orally Once a day; Duration: 30 day(s) 07/10/2024 Zoloft 25 MG 1 tablet Orally Once a day Treatment Notes Assessment Notes Anxiety Will increase zoloft dose and f/u in 1 month. Hypotension due to medication Will stop the lisinopril and monitor BP bid. Will f/u in 1 month. Next Appt Details Follow Up: 1 month, Reason: Provider Name:Justin Sabillon ry, 05/14/2025 04:15:00 PM, [address] [facility] [address], [place], [place], [id number], Provider Name:Dilcia Kirkland y, 09/25/2025 09:30:00 AM, [address], [place], [place], [id number], Progress Notes * Arpita WISEMANDOB: 0 (25 yo F)Acc No.[id number]:07/10/2024 Progress Notes Patient: Arpita QUACH Provider: LAURENT Stewart :2000 A ge:24 Y S ex:Female Date:07/10/2024 Address:[address] [place] [address], [place], [id number] Pcp:Justin Ireland Subjective: * Chief Complaints: * 1 . Discuss medication. * HPI: P sychology: The pt is here today to discuss Anxiety and her medication. Pt states she is having trouble focusing and feeling like she wants to cry all the time. Pt states she would like to discuss getting off the Lisinopril because her BP is consistently too low and it makes her feel bad. 24 year old female presents with c/o Anxiety. c/o depression. * ROS: D ERMATOLOGY: no R catalino. [...] alive. M other: alive. S iblings: alive 9 yrs. P aternal Grand Father: diagnosed with [...] Allergies: N .K.D.A. Objective: * Vitals: W t:127.4, Temp:98.4, BP:110/70, HR:78, Nurse:TAISHA, Ht: 61.75, BMI:23.49. * Examination: P sychology: Grooming : a dequate. E ye contact : n ormal. M ood : p leasant. N eurologic Exam: I ntact, gait normal. G eneral Examination: General Appearance: N AD. C hest: n ormal shape and expansion. H eart: R SR. L ungs: c lear to auscultation. A bdomen: bowel sounds present, soft and nontender. N eurologic Exam: I ntact, gait normal. E xtremities: no leg edema. Assessment: * Assessment: 1. A nxiety - F41.9 (Primary) 2 . H ypotension due to medication - I95.2? Plan: * Treatment: 2. H ypotension due to medication Notes: Will stop the lisinopril and monitor BP bid. Will f/u in 1 month. * Procedure Codes: 3 074F SYST BP LT 130 MM HG, 3078F DIAST BP < 80 MM HG * Follow Up: 1 month * Images: Billing Information: * Visit Code: 94926 Office Visit, Est Pt., Level 3. * Procedure Codes: 3074F SYST BP LT 130 MM HG. 3078F DIAST BP < 80 MM HG. * Electronic signature of LAURENT Duke on 04/23/2025 at 10:14 AM EST Sign off status: Pending * Provider: LAURENT Stewart Date: 0 07/10/2024 Generated for Poonam maria/Loren/eTransmitting on: 1 10:14 AM EST History and Physical Notes * HPI (History of Present Illness) Category Sub-Category Detail Notes Category Not es Psychology Anxiety depression Examination Category Sub-Category Detail Notes Category Not es General Examination Heart: RSR Lungs: clear to auscultatio n Abdomen: bowel sounds present , soft and nontender Extremities: no leg edema General Appearance: NAD Neurologic Exam: Intact, gait normal Chest: normal shape and exp ansion Psychology Neurologic Exam: Intact, gait normal Grooming : adequate Eye contact : normal Mood : pleasant
--- OUTSIDE RECORDS SUMMARY | 2024-07-24 10:15 | XMS_ITS ---
[facility] [address] [place] [id number] Care Team Providers Care Supervisor Logging Name Role Phone Justin Ireland Primary Care Provider [phone] Allergies No Known Allergies Results Component Value Reference Range Notes X ray : Knee, left Reviewed date:07/25/2024 04:29:24 PM Interpretation:Negative Performing Lab: Notes/Report: Negative X ray : Knee, bilateral, Sun rise and Skier's views Reviewed date:07/25/2024 04:28:53 PM Interpretation:Negative Performing Lab: Notes/Report: Negative REASON FOR VISIT knee pain Medications Medication SIG (Take, Route, Fr equency, Duration) Notes Start Date End Date Status Zoloft 50 MG 1 tablet Orally Once a day; Duration: 30 day(s) 07/10/2024 Active Norethindrone 0.35 MG 1 tablet Orally On ce a day; Duration: 28 day(s) Active Loratadine 10 MG 1 tab(s) orally once a day; Duration: 90 days 02/10/2022 Active Vital Signs Blood pressure systolic 110 mm Hg 07/25/19 25 Blood pressure diastolic 70 mm Hg 025 Heart Rate 80 /min 07/24/2024 Height 61.75 in 07/24/2024 Weight 124 lbs 07/24/2024 BMI 22.86 kg/m2 07/24/2024 Encounters Encounter Location Date Provider Diagnosis [facility] [address] [place] [id number] 07/24/2024 Justin Ireland Pain, joint, knee, left M25.562 and BMI 22.0-22.9, adult Z68.22 Assessments Encounter Date Diagnosis (ICD Code) Assessment Notes Treatment Notes Treatment Clinical Notes Section Notes 07/24/2024 Pain, joint, knee, left (ICD-10 - M25.562) 07/24/2024 BMI 22.0-22.9, adult (ICD-10 - Z68.22) Plan Of Treatment Next Appt Details Follow Up: via phone to repo rt progress, Reason: Provider Name:Justin Sabillon ry, 05/14/2025 04:15:00 PM, [address], [place], [place], [id number], Provider Name:Dilcia [place] Marita y, 09/25/2025 09:30:00 AM, [address], [address], [place], [place], [id number], Progress Notes * Arpita WISEMANDOB: 0 (25 yo F)Acc No.[id number]:07/24/2024 Progress Notes Patient: Verito QUACHiley Provider: Magali Ireland M.D. :2000 A ge:24 Y S ex:Female Date:07/24/2024 Address:[address], [place], [id number] Subjective: * Chief Complaints: * 1 . Knee pain. * HPI: K nee/Hurtado: 24 year old female presents with c/o knee pain P t complains of lt knee pain. Pt states she only has pain when bending or straightening knee. Pt denies pain when walking. Pt was seen 11/20/2018 for same issue but it was rt knee. Pt was given exercises to do at home and they did help with pain. * ROS: D ERMATOLOGY: no R catalino. n o H vitor. G ASTROENTEROLOGY: no N ausea. n o V omiting. U ROLOGY: no D ifficulty urinating. n o B lood in urine. * Medical History: M edical History Verified. * 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: B ilateral Ear Tubes , Cholecystectomy 06/20/2018. * Hospitalization/Major Diagno stic Procedure: D enies Past Hospitalization. * Family History: F ather: alive. M [...] tab(s) orally once a day , Taking Zoloft 50 MG Tablet 1 tablet Orally Once a day , Discontinued Lisinopril 5 MG Tablet 1 tablet Orally Once a day , Medication List reviewed and reconciled with the patient * Allergies: N .K.D.A. Objective: * Vitals: W t: 124, Temp: 98.1, BP: 110/70, HR: 80, Nurse: aleah, Ht: 61.75, BMI:22.86. * Examination: G eneral Examination: General Appearance: N AD. K nee / Hurtado: Knee: left. I nspection: n o swelling or redness.?Palpation: n o tenderness on joint lines or collateral ligaments. C ollateral ligaments: intact medially and laterally. R elisa of motion: pain at extremes of motion. M cmurray: negative. P atellofemoral joint: crepitations with movement. ? Assessment: * Assessment: 1. P ain, joint, knee, left - M25.562 (Primary) 2 . B WA 22.0-22.9, adult - Z68.22 Plan: * Treatment: ?Imaging: X ray : Knee, bilateral, [place] and Skier's views (Performed Date - 07/25/2024)?Negative* Iona Mcclendon 07/25/2024 4:28:47 PM > Pt informed * Procedure Codes: 3 074F SYST BP LT 130 MM HG, 3078F DIAST BP < 80 MM HG * Follow Up: v ia phone to report progress * Images: Billing Information: * Visit Code: 05294 Office Visit, Est Pt., Level 3. * Procedure Codes: 3074F SYST BP LT 130 MM HG. 3078F DIAST BP < 80 MM HG. * Electronic signature of Caity Ireland MD on 04/23/2025 at 10:15 AM EST Sign off status: Pending * Provider: Magali Ireland M.D. Date: 0 07/24/2024 Generated for Poonam maria/Loren/Jujuransmitting on: 10:15 AM EST History and Physical Notes * HPI (History of Present Illness) Category Sub-Category Detail Notes Category Not es Knee/Hurtado knee pain Pt complains of lt knee pain. Pt states she only has pain when bending or straightening knee. Pt denies pain when walking. Pt was seen 11/20/2018 for same issue but it was rt knee. Pt was given exercises to do at home and they did help with pain Examination Category Sub-Category Detail Notes Category Not es General Examination General Appearance: NAD Knee / Hurtado [facility]: negative Patellofemoral joint: crepitations with movement Palpation: no tenderness on yadiel nt lines or collateral ligaments Knee: left Inspection: no swelling or redne ss Range of motion: pain at extremes of motion Collateral ligaments: intact medially an d laterally
--- OUTSIDE RECORDS SUMMARY | 2024-08-09 05:30 | XMS_ITS ---
Author Organization [facility] Address [address] [facility] [address] [place] [id number] Care Team Providers Care Site Acquisition Manager Name Role Phone Beka Justin Primary Care Provider [phone] Dilcia Hidalgo Unavailable [phone] Allergies No Known Allergies REASON FOR VISIT 1 month f/u Medications Medication SIG (Take, Route, Fr equency, Duration) Notes Start Date End Date Status Norethindrone 0.35 MG 1 tablet Orally On ce a day; Duration: 28 day(s) Active Loratadine 10 MG 1 tab(s) orally once a day; Duration: 90 days 02/10/2022 Active Meloxicam 15 MG 1 tablet Orally Once a day; Duration: 30 day(s) 07/29/2024 Active Sertraline HCl 50 MG Take 1 tablet by [facility] once daily Orally Once a day; Duration: 90 days Active Vital Signs Blood pressure systolic 100 mm Hg 08/10/19 25 Blood pressure diastolic 70 mm Hg 025 Heart Rate 88 /min 08/09/2024 Height 61.75 in 08/09/2024 Weight 128.2 lbs 08/09/2024 BMI 23.64 kg/m2 08/09/2024 Encounters Encounter Location Date Provider Diagnosis [facility] [address] [place] [id number] 08/09/2024 Dilcia Coyle Anxiety F41.9 and BM I 23.0-23.9, adult Z68.23 Assessments Encounter Date Diagnosis (ICD Code) Assessment Notes Treatment Notes Treatment Clinical Notes Section Notes 08/09/2024 Anxiety (ICD-10 - F41.9) 08/09/2024 BMI 23.0-23.9, adult (ICD-10 - Z68.23) Plan Of Treatment Medication Medication Name Sig Start Date Stop Date Notes Sertraline HCl 50 MG Take 1 tablet by [facility] once daily Orally Once a day; Duration: 90 days Next Appt Details Follow Up: 6 Months, Reason: Provider Name:Justin Sabillon ry, 05/14/2025 04:15:00 PM, [address] [facility] [address] [facility], [address], [place], [place], [id number], Provider Name:Dilcia [place] Marita y, 09/25/2025 09:30:00 AM, [address] [facility] [address] [facility], [address], [place], [place], [id number], Progress Notes * Arpita WISEMANDOB: 0 (25 yo F)Acc No.[id number]:08/09/2024 Patient: Verito QUACHiley Provider: LAURENT Stewart :2000 A ge:24 Y S ex:Female Date:08/09/2024 Address:[address] [place] [address], [place], [id number] Pcp:Justin Ireland Subjective: * Chief Complaints: * 1 . 1 month f/u. * HPI: H PI: 24 year old female presents with c/o Patient is here today for?Pt is here today for a 1 month f/u on anxiety/depression medication. * ROS: D ERMATOLOGY: no R catalino. [...] tab(s) orally once a day , Taking Meloxicam 15 MG Tablet 1 tablet Orally Once a day , Taking Sertraline HCl 50 MG Tablet Take 1 tablet by mouth once daily , Medication List reviewed and reconciled with the patient * Allergies: N .K.D.A. Objective: * Vitals: W t: 128.2, Temp: 98.4, BP: 100/70, HR: 88, Nurse: destiny, Ht: 61.75, BMI:23.64. * Examination: P sychology: General Appearance: N AD. G rooming : a dequate.?Eye contact : n ormal. M ood : p leasant. H eart: R SR. L ungs: c lear to auscultation. N eurologic Exam: I ntact, gait normal. Assessment: * Assessment: 1. A nxiety - F41.9 (Primary) 2 . B ME 23.0-23.9, adult - Z68.23 Plan: * Treatment: * Procedure Codes: 3 074F SYST BP LT 130 MM HG, 3078F DIAST BP < 80 MM HG * Follow Up: 6 Months * Images: Billing Information: * Visit Code: 41065 Office Visit, Est Pt., Level 3. * Procedure Codes: 3074F SYST BP LT 130 MM HG. 3078F DIAST BP < 80 MM HG. * Electronic signature of LAURENT Duke on 04/23/2025 at 10:13 AM EST Sign off status: Pending * Provider: LAURENT Stewart Date: 0 08/09/2024 Generated for Poonam maria/Loren/Darian on: 1 10:13 AM EST History and Physical Notes * HPI (History of Present Illness) Category Sub-Category Detail Notes Category Not es HPI Patient is here today for Pt is here today for a 1 month f/u on anxiety/depression medication Examination Category Sub-Category Detail Notes Category Not es Psychology Heart: RSR Lungs: clear to auscultatio n General Appearance: NAD Neurologic Exam: Intact, gait normal Grooming : adequate Eye contact : normal Mood : pleasant
--- OUTSIDE RECORDS SUMMARY | 2024-11-09 04:00 | XMS_ITS ---
Author Organization [facility] Address [address] [facility] [address] [place] [id number] Care Team Providers Care Butcher All Round Name Role Phone Justin Ireland Primary Care Provider Allergies No Known Allergies REASON FOR VISIT 3 months Medications Medication SIG (Take, Route, Fr equency, Duration) Notes Start Date End Date Status Norethindrone 0.35 MG 1 tablet Orally On ce a day; Duration: 28 day(s) Active Sertraline HCl 50 MG Take 1 tablet by [facility] once daily Orally Once a day Active Loratadine 10 MG 1 tab(s) orally once a day; Duration: 90 days 02/10/2022 Active Vital Signs Blood pressure systolic 112 mm Hg 11/10/19 25 Blood pressure diastolic 74 mm Hg 025 Heart Rate 97 /min 11/09/2024 Height 61.75 in 11/09/2024 Weight 127.4 lbs 11/09/2024 BMI 23.49 kg/m2 11/09/2024 Encounters Encounter Location Date Provider Diagnosis [facility] [address] [place] [address] [place] [id number] 11/09/2024 Justin Ireland Anxiety F41.9 and BM I 23.0-23.9, adult Z68.23 Assessments Encounter Date Diagnosis (ICD Code) Assessment Notes Treatment Notes Treatment Clinical Notes Section Notes 11/09/2024 Anxiety (ICD-10 - F41.9) 11/09/2024 BMI 23.0-23.9, adult (ICD-10 - Z68.23) Plan Of Treatment Medication Medication Name Sig Start Date Stop Date Notes Sertraline HCl 50 MG Take 1 tablet by [facility] once daily Orally Once a day Next Appt Details Follow Up: 6 Months, Reason: Provider Name:Justin Sabillon ry, 05/14/2025 04:15:00 PM, [address], [address], [place], [id number], Provider Name:Dilcia Kirkland y, 09/25/2025 09:30:00 AM, [address] [facility], [address], [place], [place], [id number], Progress Notes * Verito WISEMANalonaDOB: 0 (25 yo F)Acc No.[id number]:11/09/2024 Patient: Arpita QUACH Provider: Magali Ireland M.D. :2000 A ge:24 Y S ex:Female Date:11/09/2024 Address:[address] [place] [address], [place], [id number] Subjective: * Chief Complaints: * 1 . 3 months. * HPI: P sychology: 24 year old female presents with c/o Anxiety P t here for 3 mo f/u. Pt states she is doing well on Sertraline 50mg and does not have any concerns today. * ROS: D ERMATOLOGY: no R catalino. [...] Diabetes. M aternal Grand Mother: diagnosed with Cancer, Hypertension. 1 brother(s) - healthy. . Grandmother - Breast Cancer. * Social History: C URRENT TOBACCO USE: No . C affeine: yes, frequency:. Marital Status: Single. Sexually active: yes. Travel ouside [place]: no. * Medications: T aking Norethindrone 0.35 MG Tablet 1 tablet Orally Once a day , Taking Sertraline HCl 50 MG Tablet Take 1 tablet by mouth once daily Orally Once a day , Taking Loratadine 10 MG Tablet 1 tab(s) orally once a day , Discontinued Meloxicam 15 MG Tablet 1 tablet Orally Once a day , Medication List reviewed and reconciled with the patient * Allergies: N .K.D.A. Objective: * Vitals: W t: 127.4, Temp: 98.1, BP: 112/74, HR: 97, Nurse: aleah, Ht: 61.75, BMI:23.49. * Examination: P sychology: General Appearance: N AD. G rooming : a dequate.?Eye contact : markus barber. M ood : pako crain. Assessment: * Assessment: 1. A nxiety - F41.9 (Primary) 2 . B MS 23.0-23.9, adult - Z68.23 Plan: * Treatment: * Procedure Codes: 1 036F TOBACCO NON-USER, G8420 BMI<30 AND >=22 CALC & DOCU, 3074F SYST BP LT 130 MM HG, 3078F DIAST BP < 80 MM HG * Follow Up: 6 Months * Images: Billing Information: * Visit Code: 04029 Office Visit, Est Pt., Level 3. * Procedure Codes: 1036F TOBACCO NON-USER. G8420 BMI<30 AND >=22 CALC & DOCU. 3074F SYST BP LT 130 MM HG. 3078F DIAST BP < 80 MM HG. * Electronic signature of Caity Ireland MD on 04/23/2025 at 10:14 AM EST Sign off status: Pending * Provider: Magali Ireland M.D. Date: 0 11/09/2024 Generated for Poonam maria/Loren/Darian on: 10:14 AM EST History and Physical Notes * HPI (History of Present Illness) Category Sub-Category Detail Notes Category Not es Psychology Anxiety Pt here for 3 mo f/u. Pt states she is doing well on Sertraline 50mg and does not have any concerns today Examination Category Sub-Category Detail Notes Category Not es Psychology General Appearance: NAD Grooming : adequate Eye contact : normal Mood : pleasant
--- OUTSIDE RECORDS SUMMARY | 2024-12-19 04:00 | XMS_ITS ---
Author Organization [facility] Address [address] [facility] [address] [place] [id number] Care Team Providers Care Veterinarian Name Role Phone Justin Ireland Primary Care Provider Dilcia Coyle Unavailable [phone] Allergies No Known Allergies Results Component Value Reference Range Notes Rapid Strep- Inhouse Reviewed date:12/19/2024 12:39:22 PM Interpretation: Performing Lab: Notes/Report: strep test neg CBC Fingerstick (in house) Reviewed date:12/19/2024 12:39:22 PM Interpretation: Performing Lab: Notes/Report: wbc 17.4 3.5 - 10 lym 24.1% 15 - 50 mid 5.8% 2 - 15 gran 70.1% 35 - 80 rbc 5.36 3.5 - 5.5 hgb 16.5 11.5 - 16.5 hct 47.0 35 - 55 mcv 87.6 75 - 100 mch 30.8 25 - 35 mchc 35.2 31 - 38 plat 114 100 - 400 REASON FOR VISIT poss.strep Medications Medication SIG (Take, Route, Fr equency, Duration) Notes Start Date End Date Status Cefdinir 300 MG 1 cap(s) Orally Two times a day; Duration: 10 days 12/19/2024 Active Sertraline HCl 50 MG 1 tablet Orally Onc e a day; Duration: 90 days Active Loratadine 10 MG 1 tab(s) orally once a day; Duration: 90 days Active Norethindrone 0.35 MG 1 tablet Orally On ce a day; Duration: 28 day(s) Active Vital Signs Blood pressure systolic 120 mm Hg 12/20/19 25 Blood pressure diastolic 70 mm Hg 025 Heart Rate 109 /min 12/19/2024 Height 61.75 in 12/19/2024 Weight 129 lbs 12/19/2024 BMI 23.78 kg/m2 12/19/2024 Encounters Encounter Location Date Provider Diagnosis [facility] [address] [facility] [address] [place] [id number] 12/19/2024 Dilcia Coyle Acute pharyngitis du e to other specified organisms J02.8 ; Other specified bacterial agents as the cause of diseases classified elsewhere B96.89 and BMI 23.0-23.9, adult Z68.23 Assessments Encounter Date Diagnosis (ICD Code) Assessment Notes Treatment Notes Treatment Clinical Notes Section Notes 12/19/2024 Acute pharyngitis due to other specified organisms (ICD-10 - J02.8) Rest, Fluids, tylenol or motrin for fever, gargle with warm water or salt water, throw away toothbrush after a few days on the antibiotic 12/19/2024 Other specified bacterial agents as the cause of diseases classified elsewhere (ICD-10 - B96.89) 12/19/2024 BMI 23.0-23.9, adult (ICD-10 - Z68.23) Plan Of Treatment Medication Medication Name Sig Start Date Stop Date Notes Cefdinir 300 MG 1 cap(s) Orally Two times a day; Duration: 10 days 12/19/2024 Treatment Notes Assessment Notes Acute pharyngitis due to oth er specified organisms Rest, Fluids, tylenol or motrin for feve r, gargle with warm water or salt water, throw away toothbrush after a few days on the antibiotic Next Appt Details Follow Up: prn, Reason: Provider Name:Justin aguilar, 05/14/2025 04:15:00 PM, [address] [facility], [address], [place], [phone], Provider Name:Dilcia slade, 09/25/2025 09:30:00 AM, [address] [facility], [address], [place], [phone], Progress Notes * Juan F WISEMAN: 0 (25 yo F)Acc No.[id number]:12/19/2024 Progress Notes Patient: Arpita QUACH Provider: LAURENT Stewart :2000 A ge:24 Y S ex:Female Date:12/19/2024 Address:[address] [place] [address], [place], [id number] Pcp:Justin Ireland Subjective: * Chief Complaints: * 1 . Poss.strep. * HPI: E NT/respiratory: Pt states these symptoms started Monday. Pt states she has b een around Strep. 24 year old female presents with c/o sore throat s wallowing painful, feels scratchy. c/o nasal congestion s neezing, off and on. c/o ear pain?left side. Denies : cough. D enies : Fever. D enies : Chest Pain.?Denies : Short of Breath. D enies : headache. D enies : chest congestion. D enies : dizziness. D enies : body aches. * ROS: D ERMATOLOGY: no R catalino. [...] tab(s) orally once a day , Taking Sertraline HCl 50 MG Tablet 1 tablet Orally Once a day , Medication List reviewed and reconciled with the patient * Allergies: N .K.D.A. Objective: * Vitals: W t: 129, Temp: 97.8, BP: 120/70, HR: 109, Nurse: felipe, Ht: 61.75, BMI:23.78. * Examination: E NT/Respiratory: General Appearance: N AD. E ars: a uditory canals normal bilaterally, TM's WNL. N ose : n ormal, no lesions, nares patent. S inuses : n on tender bilaterally. O ral cavity : e rythema without exudate on pharynx. N pamela : bilateral tender lymphadenopathy. H eart : R RR, normal S1 S2, no murmurs. L ungs:?clear to auscultation bilaterally. Assessment: * Assessment: 1. A cute pharyngitis due to other specified organisms - J02.8 (Primary) 2 .?Other specified bacterial agents as the cause of diseases classified elsewhere - B96.89 ? [address] 23.0-23.9, adult - Z68.23 Plan: * Treatment: Value Reference Range s trep test neg * Lizette Guy 12/19/2024 0 9:24:17 AM EDT > Provider reviewed results while patient in office. ?LAB: CBC Fingerstick (in house) (Collection Date & Time - 12/19/2024)* Value Reference Range w bc 17.4 3.5 - 10 * l ym 24.1% 15 - 50 * m id 5.8% 2 - 15 * g ran 70.1% 35 - 80 * r bc 5.36 3.5 - 5.5 * h gb 16.5 11.5 - 16.5 * h ct 47.0 35 - 55 * m cv 87.6 75 - 100 * m ch 30.8 25 - 35 * m chc 35.2 31 - 38 * p lat 114 100 - 400 * Lizette Guy 12/19/2024 0 9:41:54 AM EDT > Provider reviewed results while patient in office. Notes: Rest, Fluids, tylenol or motrin for fever, gargle with warm water or salt water, throw away toothbrush after a few days on the antibiotic??2.?Other specified bacterial agents as the cause of diseases classified elsewhere? Start Cefdinir Capsule, 300 MG, 1 cap(s), Orally, Two times a day, 10 days, 20 Capsule, Refills 0. ? * Procedure Codes: 8 7880 STREP A ASSAY W/OPTIC, Modifiers: QW , 695[address] CAPILLARY BLOOD DRAW, 36822 CBC WITH AUTO DIFF, 1036F TOBACCO NON-USER, 3074F SYST BP LT 130 MM HG, 3078F DIAST BP < 80 MM HG * Follow Up: p rn * Images: Billing Information: * Visit Code: 60696 Office Visit, Est Pt., Level 3. * Procedure Codes: 83390 STREP A ASSAY W/OPTIC. Modifiers: QW 24236 CAPILLARY BLOOD DRAW. 16380 CBC WITH AUTO DIFF. 1036F TOBACCO NON-USER. 3074F SYST BP LT 130 MM HG. 3078F DIAST BP < 80 MM HG. * Electronic signature of LAURENT Duke on 04/23/2025 at 10:14 AM EST Sign off status: Pending * Provider: LAURENT Stewart Date: 0 12/19/2024 Generated for Poonam ng/Fadallasg/eTransmitting on: 1 10:14 AM EST History and Physical Notes * HPI (History of Present Illness) Category Sub-Category Detail Notes Category Not es ENT/respiratory sore throat swallowing painful, feels scratchy ear pain left side Short of Breath Chest Pain cough Fever headache chest congestion nasal congestion sneezing, off and on dizziness body aches Examination Category Sub-Category Detail Notes Category Not es ENT/Respiratory Oral cavity : erythema without exudate on pharynx Sinuses : non tender bilateral ly Ears: auditory canals norm al bilaterally, TM's WNL Neck : bilateral tender lym phadenopathy Heart : RRR, normal S1 S2, n o murmurs Lungs: clear to auscultatio n bilaterally General Appearance: NAD Nose : normal, no lesions, nares patent
--- OUTSIDE RECORDS SUMMARY | 2025-01-17 04:30 | XMS_ITS ---
Author Organization [facility] Address [address] [id number] Care Team Providers Care Weapons Electrical Engineering Officer Name Role Phone Justin Ireland Primary Care Provider [phone] Dilcia Coyle Unavailable [phone] Allergies No Known Allergies Results Component Value Reference Range Notes Influenza Screen (in house) Reviewed date:01/27/2025 10:14:44 AM Interpretation:neg Performing Lab: Notes/Report: neg results neg Rapid Strep- Inhouse Reviewed date:01/17/2025 05:53:48 PM Interpretation:neg Performing Lab: Notes/Report: neg strep test neg CBC Fingerstick (in house) Reviewed date:01/17/2025 05:53:48 PM Interpretation: Performing Lab: Notes/Report: wbc 8.3 3.5 - 10 lym 23.9 15 - 50 mid 6.3 2 - 15 gran 69.8 35 - 80 rbc 4.60 3.5 - 5.5 hgb 13.8 11.5 - 16.5 hct 40.4 35 - 55 mcv 87.9 75 - 100 mch 30.1 25 - 35 mchc 34.3 31 - 38 plat 171 100 - 400 Covid test (in house) Reviewed date:01/27/2025 10:15:03 AM Interpretation:neg Performing Lab: Notes/Report: neg Result: neg REASON FOR VISIT sore throat Medications Medication SIG (Take, Route, Frequency, Duration) Notes Start Date End Date Status Cefdinir 300 MG 1 cap(s) Orally Two times a day; Duration: 10 days 12/19/2024 Unknown Flonase Allergy Rel Childrens 50 MCG/ACT 1 spray in each nostril Nasally Once a day 01/17/2025 Active Loratadine 10 MG 1 tab(s) orally once a day; Duration: 90 days Unknown Sertraline HCl 50 MG 1 tablet Orally Onc e a day; Duration: 90 days Unknown Norethindrone 0.35 MG 1 tablet Orally On ce a day; Duration: 28 day(s) Unknown Vital Signs Blood pressure systolic 120 mm Hg 01/18/20 25 Blood pressure diastolic 70 mm Hg 025 Heart Rate 87 /min 01/17/2025 Height 61.75 in 01/17/2025 Weight 130 lbs 01/17/2025 BMI 23.97 kg/m2 01/17/2025 Encounters Encounter Location Date Provider Diagnosis [facility] [address]10 [facility] 36 [facility] [address] [place], [place] [id number] 01/17/2025 Dilcia Coyle Acute URI J06.9 ; Non-recurrent acute serous otitis media of both ears H65.03 and BMI 23.0-23.9, adult Z68.23 Assessments Encounter Date Diagnosis (ICD Code) Assessment Notes Treatment Notes Treatment Clinical Notes Section Notes 01/17/2025 Acute URI (ICD-10 - J06.9) 01/17/2025 Non-recurrent acute serous otitis media of both ears (ICD-10 - H65.03) 01/17/2025 BMI 23.0-23.9, adult (ICD-10 - Z68.23) Plan Of Treatment Medication Medication Name Sig Start Date Stop Date Notes Flonase Allergy Rel Children s 50 MCG/ACT 1 spray in each nostril Nasally Once a day 01/17/2025 Next Appt Details Follow Up: prn, Reason: Provider Name:Justin Sabillon ry, 05/14/2025 04:15:00 PM, 1210 [facility] 36 [facility], [address], [place], [id number], Provider Name:Dilcia Kirkland y, 09/25/2025 09:30:00 AM, 1210 [facility] 36 [facility], [facility] [address], [place], [place], [phone], Progress Notes * Juan F WISEMAN:[birth year] (25 yo F)Acc No.[id number]:01/17/2025 Progress Notes Patient: Arpita QUACH Provider: LAURENT [place] :2000 A ge:24 Y S ex:Female Date:01/17/2025 Address:[address], [place], [id number] Pcp:Justin [place] Subjective: * Chief Complaints: * 1 . Sore throat. * HPI: E NT/respiratory: 24 year old female presents with c/o sore throat P t sts it does not hurt as bad as it has the past 2 days . c/o ear pain P t sts her ears hurt as well and her neck. Denies : cough. D enies : Fever. [...] yes. Travel ouside [place]: no. * Medications: U nknown Norethindrone 0.35 MG Tablet 1 tablet Orally Once a day , Unknown Loratadine 10 MG Tablet 1 tab(s) orally once a day , Unknown Sertraline HCl 50 MG Tablet 1 tablet Orally Once a day , Unknown Cefdinir 300 MG Capsule 1 cap(s) Orally Two times a day * Allergies: N .K.D.A. Objective: * Vitals: W t: 130, Temp: 97.7, BP: 120/70, HR: 87, Nurse: mm, Ht: 61.75, BMI:23.97. * Examination: G eneral Examination: General Appearance: N AD. H EENT: s clera and conjunctiva clear, PERRLA, TM's with effusion bilaterally, no erythema. O ral cavity: m ild erythema. N pamela: s upple, no lymphadenopathy. C hest: n ormal shape and expansion. H eart: R SR. L ungs: c lear to auscultation. A bdomen: b owel sounds present, soft and nontender. Assessment: * Assessment: 1. A cute URI - J06.9 (Primary) 2 . N on-recurrent acute serous otitis media of both ears - H65.03 3 . B OK 23.0-23.9, adult - Z68.23 Plan: * Treatment: Value Reference Range s trep test neg * Mariama Ramirez 01/17/2025 09:4 1:36 AM EDT > Provider reviewed results while patient in office. ?LAB: CBC Fingerstick (in house) (Collection Date & Time - 01/17/2025)* Value Reference Range w bc 8.3 3.5 - 10 * l ym 23.9 15 - 50 * m id 6.3 2 - 15 * g ran 69.8 35 - 80 * r bc 4.60 3.5 - 5.5 * h gb 13.8 11.5 - 16.5 * h ct 40.4 35 - 55 * m cv 87.9 75 - 100 * m ch 30.1 25 - 35 * m chc 34.3 31 - 38 * p lat 171 100 - 400 * Mariama Ramirez 01/17/2025 09:4 2:23 AM EDT > Provider reviewed results while patient in office. ?LAB: Influenza Screen (in house) (Collection Date & Time - 01/27/2025)?neg * Value Reference Range r esults neg * Mariama Ramirez 01/27/2025 10:1 4:34 AM EDT > Provider reviewed results while patient in office. ?LAB: Covid test (in house) (Collection Date & Time - 01/27/2025)?neg* Value Reference Range R esult: neg * Mariama Ramirez 01/27/2025 10:1 4:57 AM EDT > Provider reviewed results while patient in office. 2.?Non-recurrent acute serous otitis media of both ears? Start Flonase Allergy Rel Childrens Suspension, 50 MCG/ACT, 1 spray in each nostril, Nasally, Once a day, 1, Refills 1.?? * Procedure Codes: 8 7880 STREP A ASSAY W/OPTIC, Modifiers: QW , 69736 CAPILLARY BLOOD DRAW, 72669 CBC WITH AUTO DIFF, 01748 COVID TEST IN HOUSE, Modifiers: QW , 16260 Flu Test- Nasal Swab, Modifiers: QW , 1036F TOBACCO NON-USER, 3074F SYST BP LT 130 MM HG, 3078F DIAST BP < 80 MM HG * Follow Up: p rn * Images: Billing Information: * Visit Code: 44106 Office Visit, Est Pt., Level 3. * Procedure Codes: 54867 STREP A ASSAY W/OPTIC. Modifiers: QW 24827 CAPILLARY BLOOD DRAW. 56214 CBC WITH AUTO DIFF. 85224 COVID TEST IN HOUSE. Modifiers: QW 67772 Flu Test- Nasal Swab. Modifiers: QW 1036F TOBACCO NON-USER. 3074F SYST BP LT 130 MM HG. 3078F DIAST BP < 80 MM HG. * Electronic signature of LAURENT Duke on 04/23/2025 at 10:14 AM EST Sign off status: Pending * Provider: LAURENT [place] Date: 0 01/17/2025 Generated for Sinai ng/[place]wing/eTransmitting on: 1 10:14 AM EST History and Physical Notes * HPI (History of Present Illness) Category Sub-Category Detail Notes Category Not es ENT/respiratory sore throat Pt sts it does n ot hurt as bad as it has the past 2 days ear pain Pt sts her ears hurt as well and her neck cough Fever Examination Category Sub-Category Detail Notes Category Not es General Examination HEENT: sclera and c onjunctiva clear, PERRLA, TM's with effusion bilaterally, no erythema Heart: RSR Lungs: clear to auscultatio n Abdomen: bowel sounds present , soft and nontender General Appearance: NAD Neck: supple, no lymphaden opathy Oral cavity: mild erythema Chest: normal shape and exp ansion
--- OUTSIDE RECORDS SUMMARY | 2025-02-12 04:30 | XMS_ITS ---
Author Organization [facility] Address [facility] 36 [facility] [address] [place] [id number] Care Team Providers Care Editor Name Role Phone Beka Justin Primary Care Provider Dilcia Coyle Unavailable [phone] Allergies No Known Allergies REASON FOR VISIT mental health Medications Medication SIG (Take, Route, Frequency, Duration) Notes Start Date End Date Status Sertraline HCl 50 MG 1 tablet Orally Onc e a day; Duration: 90 days Active Loratadine 10 MG 1 tab(s) orally once a day; Duration: 90 days Active Norethindrone 0.35 MG 1 tablet Orally On ce a day; Duration: 28 day(s) Active Venlafaxine HCl ER 37.5 MG 1 capsule wit h food Orally Once a day; Duration: 30 days 02/12/2025 Active Flonase Allergy Rel Childrens 50 MCG/ACT 1 spray in each nostril Nasally Once a day 01/17/2025 Active Problems Problem Type SNOMED Code ICD Code Onset Dates Problem Status W/U Status Risk Notes Problem Mixed anxiety and depressive disorder ([id number]) Depression with anxiety (F41.8) Active confirmed Vital Signs Blood pressure systolic 122 mm Hg 02/13/20 25 Blood pressure diastolic 70 mm Hg 025 Heart Rate 75 /min 02/12/2025 Height 61.75 in 02/12/2025 Weight 128.2 lbs 02/12/2025 BMI 23.64 kg/m2 02/12/2025 Encounters Encounter Location Date Provider Diagnosis [facility] [address] [facility] [address] [place], [place] [phone] 02/12/2025 Dilcia Coyle Depression with anxi ety F41.8 and BMI 23.0-23.9, adult Z68.23 Assessments Encounter Date Diagnosis (ICD Code) Assessment Notes Treatment Notes Treatment Clinical Notes Section Notes 02/12/2025 Depression with anxiety (ICD-10 - F41.8) 02/12/2025 BMI 23.0-23.9, adult (ICD-10 - Z68.23) Plan Of Treatment Medication Medication Name Sig Start Date Stop Date Notes Venlafaxine HCl ER 37.5 MG 1 capsule wit h food Orally Once a day; Duration: 30 days 02/12/2025 Next Appt Details Follow Up: 4 Weeks, Reason: Provider Name:Justin aguilar, 05/14/2025 04:15:00 PM, 1210 [facility] 36 [facility], [address], [place], [phone], Provider Name:Dilcia Kirkland y, 09/25/2025 09:30:00 AM, [address] [place] [address] 36 [facility], [address], [place], [place], [phone], Progress Notes * IVONEArpitaDOB: 0 (25 yo F)Acc No.[id number]:02/12/2025 Progress Notes Patient: Arpita QUACH Provider: LAURENT Stewart :2000 A ge:25 Y S ex:Female Date:02/12/2025 Address:[address] [place] [address], [id number] Pcp:Justin [place] Subjective: * Chief Complaints: * 1 . Mental health. * HPI: P sychology: 25 year old female presents with c/o Anxiety P t states she wants to talk about her anxiety meds. Pt states she is not sure if the meds are helping her. She is unable to feel and is also having sexual side effects.. * ROS: D ERMATOLOGY: no R catalino. [...] ouside [place]: no. * Medications: T aking Flonase Allergy Rel Childrens 50 MCG/ACT Suspension 1 spray in each nostril Nasally Once a day , Taking Norethindrone 0.35 MG Tablet 1 tablet Orally Once a day , Taking Loratadine 10 MG Tablet 1 tab(s) orally once a day , Taking Sertraline HCl 50 MG Tablet 1 tablet Orally Once a day , Discontinued Cefdinir 300 MG Capsule 1 cap(s) Orally Two times a day , Medication List reviewed and reconciled with the patient * Allergies: N .K.D.A. Objective: * Vitals: W t: 128.2, Temp: 97.7, BP: 122/70, HR: 75, Nurse: felipe, Ht: 61.75, BMI:23.64. * Examination: P sychology: General Appearance: N AD. G rooming : a dequate.?Eye contact : n ormal. M ood : p leasant. H eart: R SR. L ungs: c lear to auscultation. N eurologic Exam: I ntact, gait normal. Assessment: * Assessment: 1. D epression with anxiety - F41.8 (Primary) 2 . B ME 23.0-23.9, adult - Z68.23 Plan: * Treatment: * Procedure Codes: 1 036F TOBACCO NON-USER, 3074F SYST BP LT 130 MM HG, 3078F DIAST BP < 80 MM HG * Follow Up: 4 Weeks * Images: Billing Information: * Visit Code: 23577 Office Visit, Est Pt., Level 3. * Procedure Codes: 1036F TOBACCO NON-USER. 3074F SYST BP LT 130 MM HG. 3078F DIAST BP < 80 MM HG. * Electronic signature of LAURENT Duke on 04/23/2025 at 10:13 AM EST Sign off status: Pending * Provider: LAURENT Stewart Date: Generated for Poonam maria/Loren/eTransmitting on: 10:13 AM EST History and Physical Notes * HPI (History of Present Illness) Category Sub-Category Detail Notes Category Not es Psychology Anxiety Pt states she wa nts to talk about her anxiety meds. Pt states she is not sure if the meds are helping her. She is unable to feel and is also having sexual side effects. Examination Category Sub-Category Detail Notes Category Not es Psychology Heart: RSR Lungs: clear to auscultatio n General Appearance: NAD Neurologic Exam: Intact, gait normal Grooming : adequate Eye contact : normal Mood : pleasant
--- OUTSIDE RECORDS SUMMARY | 2025-03-12 04:30 | XMS_ITS ---
Author Organization [place] Address [address] [facility] [address] [place] [id number] Care Team Providers Care Supervisor Dumping Name Role Phone Beka Justin Primary Care Provider Dilcia Coyle Unavailable [phone] Allergies No Known Allergies REASON FOR VISIT 4 weeks Medications Medication SIG (Take, Route, Frequency, Duration) Notes Start Date End Date Status Flonase Allergy Rel Childrens 50 MCG/ACT 1 spray in each nostril Nasally Once a day 01/17/2025 Active Norethindrone 0.35 MG 1 tablet Orally On ce a day; Duration: 28 day(s) Active Loratadine 10 MG 1 tab(s) orally once a day; Duration: 90 days Active Venlafaxine HCl ER 75 MG 1 capsule with food Orally Once a day; Duration: 30 days Active Vital Signs Blood pressure systolic 124 mm Hg 03/12/20 25 Blood pressure diastolic 74 mm Hg 025 Heart Rate 82 /min 03/12/2025 Height 61.75 in 03/12/2025 Weight 130 lbs 03/12/2025 BMI 23.97 kg/m2 03/12/2025 Encounters Encounter Location Date Provider Diagnosis [place] [facility] [address] [place] [id number] 03/12/2025 Dilcia Coyle Depression with anxi ety F41.8 Assessments Encounter Date Diagnosis (ICD Code) Assessment Notes Treatment Notes Treatment Clinical Notes Section Notes 03/12/2025 Depression with anxiety (ICD-10 - F41.8) Plan Of Treatment Medication Medication Name Sig Start Date Stop Date Notes Venlafaxine HCl ER 75 MG 1 capsule with food Orally Once a day; Duration: 30 days Next Appt Details Follow Up: 3 Weeks, Reason: Provider Name:Justin Sabillon ry, 05/14/2025 04:15:00 PM, [address], [place], [place], [id number], Provider Name:Dilcia Arenas Marita y, 09/25/2025 09:30:00 AM, [facility], [address], [place], [place], [id number], Progress Notes * Arpita WISEMANDOB: 0 (25 yo F)Acc No.[id number]:03/12/2025 Progress Notes Patient: Arpita QUACH Provider: LAURENT Stewart :2000 A ge:25 Y S ex:Female Date:03/12/2025 Address:[address] [place] [address], [id number] Pcp:Justin Ireland Subjective: * Chief Complaints: * 1 . 4 weeks. * HPI: P sychology: 25 year old female presents with c/o Anxiety P t here to f/u on anxiety. Pt states she was started on Venlafaxine last time she was here. Pt states its better a little bit but still having some anxiety. * ROS: D ERMATOLOGY: no R catalino. [...] tab(s) orally once a day , Taking Venlafaxine HCl ER 37.5 MG Capsule Extended Release 24 Hour 1 capsule with food Orally Once a day , Discontinued Sertraline HCl 50 MG Tablet 1 tablet Orally Once a day , Medication List reviewed and reconciled with the patient * Allergies: N .K.D.A. Objective: * Vitals: W t: 130, Temp: 98.3, BP: 124/74, HR: 82, Nurse: felipe, Ht: 61.75, BMI:23.97. * Examination: P sychology: General Appearance: N AD. G rooming : a dequate.?Eye contact : n ormal. M ood : p leasant. H eart: R SR. L ungs: c lear to auscultation. N eurologic Exam: I ntact, gait normal. Assessment: * Assessment: 1. D epression with anxiety - F41.8 (Primary) Plan: * Treatment: * Follow Up: 3 Weeks * Images: Billing Information: * Visit Code: 59089 Office Visit, Est Pt., Level 3. * Procedure Codes: * Electronic signature of LAURENT Duke on 04/23/2025 at 10:13 AM EST Sign off status: Pending * Provider: LAURENT Stewart Date: 05/12/2024 Generated for Poonam maria/Loren/eTransmitting on: 10:13 AM EST History and Physical Notes * HPI (History of Present Illness) Category Sub-Category Detail Notes Category Not es Psychology Anxiety Pt here to f/u o n anxiety. Pt states she was started on Venlafaxine last time she was here. Pt states its better a little bit but still having some anxiety Examination Category Sub-Category Detail Notes Category Not es Psychology Heart: RSR Lungs: clear to auscultatio n General Appearance: NAD Neurologic Exam: Intact, gait normal Grooming : adequate Eye contact : normal Mood : pleasant
--- OUTSIDE RECORDS SUMMARY | 2025-03-27 08:15 | XMS_ITS ---
Author Organization [place] Address [address] [facility] 36 [address] [id number] Care Team Providers Care Caramel Coloring Operator Name Role Phone Orion Irelandian Primary Care Provider [phone] Rios Dilcia Coyle Unavailable [phone] Allergies No Known Allergies REASON FOR VISIT 3 Week Follow Up Medications Medication SIG (Take, Route, Frequency, Duration) Notes Start Date End Date Status Flonase Allergy Rel Childrens 50 MCG/ACT 1 spray in each nostril Nasally Once a day 01/17/2025 Active Norethindrone 0.35 MG 1 tablet Orally On ce a day; Duration: 28 day(s) Active Loratadine 10 MG 1 tab(s) orally once a day; Duration: 90 days Active Venlafaxine HCl ER 75 MG 1 tablet with f ood Orally Once a day; Duration: 30 days 03/27/2025 Active Vital Signs Blood pressure systolic 118 mm Hg 03/27/20 25 Blood pressure diastolic 68 mm Hg 025 Heart Rate 78 /min 03/27/2025 Height 61.75 in 03/27/2025 Weight 130.4 lbs 03/27/2025 BMI 24.04 kg/m2 03/27/2025 Encounters Encounter Location Date Provider Diagnosis [place] [address] [place] [phone] 03/27/2025 Dilcia Coyle Depression with anxi ety F41.8 Assessments Encounter Date Diagnosis (ICD Code) Assessment Notes Treatment Notes Treatment Clinical Notes Section Notes 03/27/2025 Depression with anxiety (ICD-10 - F41.8) Plan Of Treatment Medication Medication Name Sig Start Date Stop Date Notes Venlafaxine HCl ER 75 MG 1 capsule with food Orally Once a day; Duration: 30 days Venlafaxine HCl ER 75 MG 1 tablet with f ood Orally Once a day; Duration: 30 days 03/27/2025 Next Appt Details Follow Up: 6 Months, Reason: Provider Name:Justin Sabillon ry, 05/14/2025 04:15:00 PM, [address] [facility] [address], [address], [place], [place], [id number], Provider Name:Dilcia Dagoberto Marita y, 09/25/2025 09:30:00 AM, [address], [place], [place], [id number], Progress Notes * Arpita WISEMANDOB: 0 (25 yo F)Acc No.[id number]:03/27/2025 Progress Notes Patient: Arpita QUACH Provider: LAURENT Stewart :2000 A ge:25 Y S ex:Female Date:03/27/2025 Address:[address] [place] [address], [place], [id number] Pcp:Justin Ireland Subjective: * Chief Complaints: * 1 . 3 Week Follow Up. * HPI: P sychology: 25 year old female presents with c/o Anxiety P t states she was started on Venlafaxine. Pt states she is feeling good and has no concerns at this time other than she can't swallow the capsule and would like a tablet. * ROS: D ERMATOLOGY: no R catalino. [...] a day , Taking Venlafaxine HCl ER 75 MG Capsule Extended Release 24 Hour 1 capsule with food Orally Once a day , Medication List reviewed and reconciled with the patient * Allergies: N .K.D.A. Objective: * Vitals: W t: 130.4, Temp: 98.4, BP: 118/68, HR: 78, Nurse: MIRANDA, Ht: 61.75, BMI:24.04. * Examination: P sychology: General Appearance: N AD. G rooming : a dequate.?Eye contact : markus barber. M ood : p lebenedict. H eart: R SR. L ungs: c lear to auscultation. N eurologic Exam: I ntact, gait normal. Assessment: * Assessment: 1. D epression with anxiety - F41.8 (Primary) Plan: * Treatment: * Procedure Codes: 1 036F TOBACCO NON-USER, 3074F SYST BP LT 130 MM HG, 3078F DIAST BP < 80 MM HG * Follow Up: 6 Months * Images: Billing Information: * Visit Code: 51455 Office Visit, Est Pt., Level 3. * Procedure Codes: 1036F TOBACCO NON-USER. 3074F SYST BP LT 130 MM HG. 3078F DIAST BP < 80 MM HG. * Electronic signature of LAURENT Duke on 04/23/2025 at 10:14 AM EST Sign off status: Pending * Provider: LAURENT Stewart Date: 05/28/2024 Generated for Poonam maria/Loren/eTransmitting on: 1 10:14 AM EST History and Physical Notes * HPI (History of Present Illness) Category Sub-Category Detail Notes Category Not es Psychology Anxiety Pt states she wa s started on Venlafaxine. Pt states she is feeling good and has no concerns at this time other than she can't swallow the capsule and would like a tablet Examination Category Sub-Category Detail Notes Category Not es Psychology Heart: RSR Lungs: clear to auscultatio n General Appearance: NAD Neurologic Exam: Intact, gait normal Grooming : adequate Eye contact : normal Mood : pleasant
[2025-04-22 20:16] LABS: Coronavirus 19, PCR Not Detected (NotDetected); Influenza A, PCR Not Detected (NotDetected); Influenza B, PCR Not Detected (NotDetected)
--- OUTSIDE RECORDS SUMMARY | 2025-04-23 10:15 | XMS_ITS | Patient Health Record ---
Author Organization [facility] Address [address] [place] [id number] Care Team Providers Care Load Builder Name Role Phone Orion Irelandian Primary Care Provider Dilcia Coyle Unavailable [phone] Allergies No Known Allergies Results Component Value [...] - 38 plat 114 100 - 400 Influenza Screen (in house) Reviewed date:01/27/2025 10:14:44 [...] Interpretation:neg Performing Lab: Notes/Report: neg Result: neg X ray : Knee, left Reviewed date:07/25/2024 04:29:24 PM Interpretation:Negative Performing Lab: Notes/Report: Negative X ray : Knee, bilateral, Sun rise and Skier's views Reviewed date:07/25/2024 04:28:53 PM Interpretation:Negative Performing Lab: Notes/Report: Negative Reason For Referral No Information Medications Medication SIG (Take, Route, Frequency, Duration) [...] a day; Duration: 30 days 03/27/2025 Active Immunizations Vaccine Route Administration Date Status Comme nts Flumist-Quad (2-49yrs) Unknown 06/03/2013 Administered Flumist-Quad (2-49yrs) Unknown 05/21/2014 Administered Fluzone Quad (6months&older) IM Intramuscular 02/15/2023 Administered Hep A- Pediatric Unknown 06/03/2013 Administered Hepatitis B (20 and more) IM Intramuscular 12/01/2020 Admi nistered Menactra IM Intramuscular 11/13/2017 Administered ppd ID Intradermal 01/17/2018 Administered ppd ID Intradermal 01/29/2018 Administered ppd ID Intradermal 11/25/2020 Administered ppd ID Intradermal 12/09/2020 Administered xGardasil Unknown 06/03/2013 Administered Problems Problem Type SNOMED Code ICD Code Onset Dates Problem Status W/U Status Risk Notes Problem Hypertension (67684272) HTN (hypertension) (I10) Active confirmed Problem Anxiety (81020711) Anxiety (F41.9) Active confirmed Problem Mixed anxiety and depressive disorder (544265247) Depression with anxiety (F41.8) Active confirmed Problem Migraine without aura, not refractory (651020943) Migraine without aura and without status migrainosus, not intractable (G43.009) Active confirmed Problem Seasonal allergic rhinitis (990310213) Seasonal allergic rhinitis, unspecified trigger (J30.2) Active confirmed Problem Anxiety disorder (578936799) Test anxiety (F41.8) Active confirmed Vital Signs Heart Rate 78 /min 03/27/2025 Blood pressure diastolic 68 mm Hg 03/27/2025 Height 61.75 in 03/27/2025 Blood pressure systolic 118 mm Hg 03/27/2025 Weight 130.4 lbs 03/27/2025 BMI 24.04 kg/m2 03/27/2025 Encounters Encounter Location Date Provider Diagnosis [facility] [facility] [address] [place], [place] [id number] 07/10/2024 Dilcia Crowdy Anxiety F41.9 and Hypotension due to medication I95.2 [facility] [facility] [facility] [address] [place], [place] [id number] 07/24/2024 Justin Defiance Pain, joint, knee, l eft M25.562 and BMI 22.0-22.9, adult Z68.22 [facility] [facility] [address] [place], [place] [phone] 08/09/2024 Dilcia Crowdy Anxiety F41.9 and BM I 23.0-23.9, adult Z68.23 [facility] [facility] [address] [place], [place] [id number] 11/09/2024 Justin Defiance Anxiety F41.9 and BM I 23.0-23.9, adult Z68.23 [facility] [facility] [address] [place], [place] [id number] 12/19/2024 Dilcia Prietody Acute pharyngitis du e to other specified organisms J02.8 ; Other specified bacterial agents as the cause of diseases classified elsewhere B96.89 and BMI 23.0-23.9, adult Z68.23 [facility] [address] [facility] [address] [place], [place] [id number] 01/17/2025 Dilcia Crowdy Acute URI J06.9 ; Non-recurrent acute serous otitis media of both ears H65.03 and BMI 23.0-23.9, adult Z68.23 [facility] [address] [facility] [address] [place], [place] [id number] 02/12/2025 Dilcia Crowdy Depression with anxi ety F41.8 and BMI 23.0-23.9, adult Z68.23 [facility] [address] [facility] 36 [facility] [address] [place], [place] [id number] 03/12/2025 Dilcia Crowdy Depression with anxi ety F41.8 [facility] [address] [facility] 36 [facility] [address] [place], [place] [id number] 03/27/2025 Dilcia Crowdy Depression with anxi ety F41.8 [facility] [address] [facility] [address] [place], [place] [id number] 07/25/2024 Justin Defiance [facility] [address] [facility] [address] [place], [place] [phone] 09/12/2024 Justin Defiance Recurrent acute sero us otitis media of both ears H65.06 Assessments Encounter Date Diagnosis (ICD Code) Assessment Notes Treatment Notes Treatment Clinical Notes Section Notes 01/17/2025 Non-recurrent acute serous otitis media of both ears (ICD-10 - H65.03) 02/12/2025 Depression with anxiety (ICD-10 - F41.8) 02/12/2025 BMI 23.0-23.9, adult (ICD-10 - Z68.23) 03/12/2025 Depression with anxiety (ICD-10 - F41.8) 03/27/2025 Depression with anxiety (ICD-10 - F41.8) 07/10/2024 Anxiety (ICD-10 - F41.9) Will increase zoloft dose and f/u in 1 month. 07/10/2024 Hypotension due to medication (ICD-10 - I95.2) Will stop the lisinopril and monitor BP bid. Will f/u in 1 month. 07/24/2024 Pain, joint, knee, left (ICD-10 - M25.562) 07/24/2024 BMI 22.0-22.9, adult (ICD-10 - Z68.22) 08/09/2024 Anxiety (ICD-10 - F41.9) 08/09/2024 BMI 23.0-23.9, adult (ICD-10 - Z68.23) 09/12/2024 Recurrent acute serous otitis media of both ears (ICD-10 - H65.06) 11/09/2024 Anxiety (ICD-10 - F41.9) 11/09/2024 BMI 23.0-23.9, adult (ICD-10 - Z68.23) 12/19/2024 Other specified bacterial agents as the cause of diseases classified elsewhere (ICD-10 - B96.89) 12/19/2024 Acute pharyngitis due to other specified organisms (ICD-10 - J02.8) Rest, Fluids, tylenol or motrin for fever, gargle with warm water or salt water, throw away toothbrush after a few days on the antibiotic 01/17/2025 Acute URI (ICD-10 - J06.9) 01/17/2025 BMI 23.0-23.9, adult (ICD-10 - Z68.23) 12/19/2024 BMI 23.0-23.9, adult (ICD-10 - Z68.23) Plan Of Treatment Next Appt Details Provider Name:Justin aguilar, 05/14/2025 04:15:00 PM, [address], [place], [place], [phone], Provider Name:Dilcia Kirkland y, 09/25/2025 09:30:00 AM, [address], [place], [place], [id number], Insurance Providers Payer Name Payer Address Payer Phone Subscriber Number Group Number Insured Name Patient Relationship to Insured Coverage Start Date Coverage End Date [employer] [address] [place] [id number] Arpita Wiseman Self - patient is the insured [employer] [address] [place] [address] [id number] Arpita Wiseman Self - patient is the insured [employer] [address] [place], [place] [id number] [facility] Arpita Wiseman Self - patient is the insured Medical (General) History 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 Surgery Date(Month/Year) Bilateral Ear Tubes Cholecystectomy 06/20/2018
== END 2025-04-22 23:59 | disposition home or self-care (01) ==
LOC: LAB.DROPOF 04-23 10:11
PROVIDERS: PCP Physician Assistant; Visit Provider Nurse Practitioner Family
DX: J06.9 Acute upper respiratory infection, unspecified (principal)
CPT/HCPCS: 87631